=== PATIENT | female | born 1985 | race Caucasian/White ===

== ENCOUNTER 2023-11-28 18:05 | Emergency (ER) | payer OTHER, SELFPAY ==
[2023-11-28 18:30] VITALS: BP 138/75; PULSE 89; TEMP 36.7; O2SAT 98; BMI 52.1
[2023-11-28 20:23] VITALS: BP 140/67; PULSE 83; O2SAT 99
--- NOTE | 2023-11-28 20:33 | ED_ITS ---
HPI HPI - Back Pain/Injury General Chief Complaint: Back Pain/Injury Stated Complaint: BACK PAIN Time Seen by Provider: 11/28/23 20:25 Source: patient Mode of arrival: walk-in Limitations: no limitations History of Present Illness HPI Narrative: Related Data Previous Rx's ?Medication ?Instructions ?Recorded prednisone 10 mg tablet See Rx Instructions .Route 11/28/23 .COMPLEX #30 tabs tizanidine 4 mg capsule (Zanaflex) 4 mg PO Q8H PRN muscle spasticity 11/28/23 #12 caps Allergies Allergy/AdvReac Type Severity Reaction Status Date / Time amoxicillin Allergy Severe Rash Verified 11/28/23 18:30 Opioid HPI Opioid Management Most Recent Opioid Data: Last Pain Scale 6 11/28/23 20:31 11/28/23 Last ED Pain Assessment 11/28/23 20:31 PFSH PFSH Social History Little interest or pleasure in doing things: not at all Feeling down, depressed, or hopeless: not at all Exam Constitutional Vital Signs, click to edit/add: Last Vital Signs Temp 98.1 F 11/28/23 18:30 Pulse 83 11/28/23 20:23 Resp 18 11/28/23 20:23 BP 140/67 11/28/23 20:23 Pulse Ox 99 11/28/23 20:23 O2 Del Method Room Air 11/28/23 20:23 Course Vital Signs Vital signs: Vital Signs Temperature 98.1 F 11/28/23 18:30 Pulse Rate 89 11/28/23 18:30 Blood Pressure 138/75 11/28/23 18:30 Pulse Oximetry 98 11/28/23 18:30 Oxygen Delivery Method Room Air 11/28/23 18:30 Temperature 98.1 F 11/28/23 18:30 Pulse Rate 83 11/28/23 20:23 Respiratory Rate 18 11/28/23 20:23 Blood Pressure 140/67 11/28/23 20:23 Pulse Oximetry 99 11/28/23 20:23 Oxygen Delivery Method Room Air 11/28/23 20:23 Discharge Plan Discharge Chief Complaint: Back Pain/Injury Clinical Impression: Acute exacerbation of chronic low back pain Patient Disposition: Home, Self-Care Time of Disposition Decision: 20:34 Condition: Good Mode of Transportation: Private Vehicle Prescriptions / Home Meds: New tizanidine [Zanaflex] 4 mg capsule 4 mg PO Q8H PRN (Reason: muscle spasticity) Qty: 12 0RF prednisone 10 mg tablet See Rx Instructions .ROUTE .COMPLEX Qty: 30 0RF Rx Instructions: Take 5 tablets on days 1-2, 4 tabs on days 3-4, 3 tabs on days 5-6, 2 tabs on days 7-8, 1 tab on days 9-10. Print Language: Icelandic Instructions: Back Pain (ED) Additional Instructions: Return to the ER if your condition worsens. Referrals: LATONIA GRIFFIN [Primary Care Provider] - 1 week
--- NOTE | 2023-11-28 20:36 | ED_ITS ---
HPI HPI - Back Pain/Injury General Chief Complaint: Back Pain/Injury Stated Complaint: BACK PAIN Time Seen by Provider: 11/28/23 20:25 Source: patient Mode of arrival: walk-in Limitations: no limitations History of Present Illness HPI Narrative: 38 year old female presents to the ED for low back pain. States the pain is a chronic, ongoing issue. Reports hx DDD. Denies fever, chills, recent injury, urinary sx. Denies N/T to her extremities. Denies saddle anesthesia. Denies chance of . She has tried Lidocaine patches, Robaxin, Motrin, and Tylenol. Related Data Previous Rx's ?Medication ?Instructions ?Recorded prednisone 10 mg tablet See Rx Instructions .Route 11/28/23 .COMPLEX #30 tabs tizanidine 4 mg capsule (Zanaflex) 4 mg PO Q8H PRN muscle spasticity 11/28/23 #12 caps Allergies Allergy/AdvReac Type Severity Reaction Status Date / Time amoxicillin Allergy Severe Rash Verified 11/28/23 18:30 Opioid HPI Opioid Management Most Recent Opioid Data: Last Pain Scale 6 11/28/23 20:31 11/28/23 Last ED Pain Assessment 11/28/23 20:31 Review of Systems ROS Constitutional Denies: fever or chills Cardiovascular Denies: chest pain Respiratory Denies: shortness of breath Gastrointestinal Denies: abdominal pain, nausea, vomiting or diarrhea Genitourinary Denies: painful urination, urinary frequency, urinary urgency or blood in urine Musculoskeletal Reports: back pain; Denies: neck pain, extremity pain or extremity swelling Integumentary/Breast Denies: rash Neurological Denies: headache, numbness in extremities, weakness in extremities or lack of coordination PFSH PFSH Social History Little interest or pleasure in doing things: not at all Feeling down, depressed, or hopeless: not at all Exam Constitutional Vital Signs, click to edit/add: Last Vital Signs Temp 98.1 F 11/28/23 18:30 Pulse 83 11/28/23 20:23 Resp 18 11/28/23 20:23 BP 140/67 11/28/23 20:23 Pulse Ox 99 11/28/23 20:23 O2 Del Method Room Air 11/28/23 20:23 Common normals: no apparent distress and oriented x3 General appearance: cooperative Eye Common normals: conjunctivae normal and no scleral icterus Neck & C-Spine Common normals: supple Chest Chest: symmetrical chest wall rise Respiratory Common normals: normal respiratory effort Effort & inspection: able to speak in complete sentences Cardio Common normals: regular rate Back & Pelvis Thoracic spine/upper back: normal to inspection; no thoracic spinal tenderness and no paraspinal muscle tenderness Lumbar spine/lower back: normal to inspection and paraspinal muscle tenderness Neuro Common normals: oriented x3 and moves all extremities Sensorium/orientation: awake and alert Speech: speech normal Gait (neuro): normal gait Course Vital Signs Vital signs: Vital Signs Temperature 98.1 F 11/28/23 18:30 Pulse Rate 89 11/28/23 18:30 Blood Pressure 138/75 11/28/23 18:30 Pulse Oximetry 98 11/28/23 18:30 Oxygen Delivery Method Room Air 11/28/23 18:30 Temperature 98.1 F 11/28/23 18:30 Pulse Rate 83 11/28/23 20:23 Respiratory Rate 18 11/28/23 20:23 Blood Pressure 140/67 11/28/23 20:23 Pulse Oximetry 99 11/28/23 20:23 Oxygen Delivery Method Room Air 11/28/23 20:23 MDM - Back Pain/Injury MDM Narrative Medical decision making narrative: The patient was medicated with Toradol and Decadron here. Prescriptions were provided for prednisone and Zanaflex. Follow up with pcp for a recheck, further evaluation and treatment. Return to the ER for new or worsening symptoms. Differential Diagnosis Differential diagnosis: Likely lumbar radiculopathy, strain of lumbar region and other (Chronic back pain exacerbation) Medical Records Attestation: I reviewed the patient's medical records. Discharge Plan Discharge Chief Complaint: Back Pain/Injury Clinical Impression: Acute exacerbation of chronic low back pain Patient Disposition: Home, Self-Care Time of Disposition Decision: 20:34 Condition: Good Mode of Transportation: Private Vehicle Prescriptions / Home Meds: New tizanidine [Zanaflex] 4 mg capsule 4 mg PO Q8H PRN (Reason: muscle spasticity) Qty: 12 0RF prednisone 10 mg tablet See Rx Instructions .ROUTE .COMPLEX Qty: 30 0RF Rx Instructions: Take 5 tablets on days 1-2, 4 tabs on days 3-4, 3 tabs on days 5-6, 2 tabs on days 7-8, 1 tab on days 9-10. Print Language: Occitan Instructions: Back Pain (ED) Additional Instructions: Return to the ER if your condition worsens. Referrals: LATONIA GRIFFIN [Primary Care Provider] - 1 week
[2023-11-28] MEDS: KETOROLAC TROMETHAMINE 60 MG/2 ML VIAL IM (20:53)
[2023-11-28] MEDS: DEXAMETHASONE SOD PHOS 10 MG/ML VIAL IM (20:54)
== END 2023-11-28 20:59 | disposition home or self-care (01) ==
PROVIDERS: Emergency Provider Emergency Medicine
DX: M54.50 Low back pain, unspecified (principal); G89.29 Other chronic pain
CPT/HCPCS: 96372; 99284; J1100; J1885

== ENCOUNTER 2024-01-02 07:41 | Outpatient (OUT) | payer SELFPAY ==
--- OUTSIDE RECORDS SUMMARY | 2024-01-02 07:45 | XMS_ITS | CCD ---
Author Organization [facility] Care Team Providers Care Map Drafter Name Role Phone Jaycee Teran Unavailable JaMariaelena Unavailable CAROLANN, DR SÁNCHEZ Admitting Unavailable VERNON HILL, DR SÁNCHEZ Attending Unavailable VERNON HILL, DR SÁNCHEZ Primary Care Unavailable MILLVILLE, DR VALENTINA Velasquez Consulting Unavailable VERNON HILL, DR SÁNCHEZ Consulting Unavailable VERNON HILL, DR SÁNCHEZ Admitting Unavailable HOUSE, DR SÁNCHEZ Attending Unavailable HOUSE, DR SÁNCHEZ Primary Care Unavailable VERNON HILL, DR SÁNCHEZ Consulting Unavailable Ronen Mendez Consulting Unavailable FAWWAD, LUCIANO H Admitting Unavailable FAWWAD, LUCIANO H Attending Unavailable FAWWAD, LUCIANO H Primary Care Unavailable FAWWAD, LUCIANO H Consulting Unavailable FAWWAD, LUCIANO H Admitting Unavailable FAWWAD, LUCIANO H Attending Unavailable FAWWAD, LUCIANO H Primary Care Unavailable FAWWAD, LUCIANO H Consulting Unavailable FAWWAD, LUCIANO Referring Unavailable FAWWAD, LUCIANO Primary Care Unavailable FAWWAD, LUCIANO Referring Unavailable FAWWAD, LUCIANO Primary Care Unavailable Alisond Shaikh DAUGHERTY Primary Care Provider [phone] Rasheeda PATHOLOGY SECRETARY/TRANSCRIPTIONIST, Charity Unavailable Brandin Vuong MD Unavailable Maite DAUGHERTY, Wallace Primary Care Provider Bhupendra DELEON, Cary Unavailable SHAIKH FARNSWORTH Attending Unavailable CARY HUIZAR Attending Unavailabl e SHAIKH FARNSWORTH Attending Unavailable CARY HUIZAR Referring Unavaila ble FAWCHELE, Primary Care Unavailable CARY HUIZAR Referring Unavaila ble SHAIKH FARNSWORTH Primary Care Unavailable HEALTH, 360 Referring Unavailable CRISTIAN FARNSWORTHIKH Primary Care Unavailable CHARITY GUSTAFSON Referring Unavailable CRISTIAN FARNSWORTHIKH Primary Care Unavailable Allergies Allergy Classification Reported Allergen(s) Allergy Type Date of Onset Reaction(s) Facility (15 sources) Amoxicillin; Translations: [Amoxicillin] Drug Allergy 05-05-2013 as a child [facility] Repository (1 source) Latex Drug allergy (disorder) 08-12-2013 [facility] Rep[facility] Medications Current Medications Medication Drug Class(es) Dates Sig (Normalized) Sig (Original) [id number] 200 actuat albuterol 0.09 mg/actuat metered dose inhaler (18 sources) beta2-Adrenergic Agonist Start: 12-17-2023 End: 12-17-2023 take 2 puff(s) by inhalation every four hours for wheezing albuterol HFA 90 mcg/act inhaler Indications: Mild intermittent asthma without complication (CMS/HCC) Inhale 2 puffs every 4 (four) hours if needed for wheezing 18 g 2 12/17/2023 Active Start: 07-27-2021 take 2 puff(s) by in halation every four hours as needed Albuterol Sulfate HFA 108 (90 Base) MCG/ACT 2 puffs as needed Inhalation every 4 hrs Jul, Active Start: 07-27-2021 take 2 puff(s) by in halation every four hours as needed Albuterol Sulfate HFA 108 (90 Base) MCG/ACT 2 puffs as needed Inhalation every 4 hrs Jul, Not-Taking/PRN Start: 06-18-2021 take 2 puff(s) by in halation every four to six hours as needed Albuterol Sulfate HFA 108 (90 Base) MCG/ACT 2 puffs as needed Inhalation every 4-6 hours for 14 days June, Active Start: 06-18-2021 take 2 puff(s) by in halation every four to six hours as needed Albuterol Sulfate HFA 108 (90 Base) MCG/ACT 2 puffs as needed Inhalation every 4-6 hours for 14 days June, Not-Taking/PRN take 2 puff(s) by in halation every six hours as needed for wheezing albuterol (PROVENTIL HFA;VENTOLIN HFA) 90 mcg/actuation inhaler Indications: acute asthma attack Inhale 2 puffs every 6 (six) hours as needed for wheezing Indications: asthma attack. Active Ventolin HFA Act anastacia 24 hr buPROPion hydrochloride 150 mg extended release oral tablet (8 sources) Aminoketone Start: 06-17-2023 take 1 tablet by mouth once daily buPROPion XL (Wellbutrin XL) 150 MG 24 hr tablet Indications: Severe episode of recurrent major depressive disorder, without psychotic features (HCC) (CMS/HCC) Take 1 tablet (150 mg) by mouth Daily Do not crush, chew, or split. 90 tablet 1 06/17/2023 Active cephalexin 500 mg oral capsule (1 source) Cephalosporin Antibacterial Start: 02-21-2023 take 1 capsule by mouth every twelve hours Cephalexin 500 MG 1 capsule Orally twice a day for Feb, Active Estradiol (4 sources) Estrogen Start: 11-25-2023 Estradiol Cypionate (DEPO-ESTRADIOL IM) 11/25/2023 Active ferrous sulfate 325 mg oral tablet (6 sources) take 1 tablet by mouth once daily at breakfast ferrous sulfate 325 (65 FE) mg tablet Take 1 tablet (325 mg total) by mouth daily with breakfast. Active Lidocaine (1 source) Antiarrhythmic, Amide Local Anesthetic Start: 04-20-2021 Lidocaine 5 % 1 patch remove after 12 hours Externally Once a day for 7 days Apr, Active 24 hr metFORMIN hydrochloride 500 mg extended release oral tablet (1 source) Biguanide Start: 12-25-2023 End: 12-24-2024 take 1 tablet by mouth every twenty-four hours at mealtime metFORMIN XR (Glucophage-XR) 500 MG 24 hr tablet Indications: Prediabetes Take 1 tablet (500 mg) by mouth in the evening. Take with meals Do not crush, chew, or split. 30 tablet 12/25/2023 12/24/2024 Active montelukast 10 mg oral tablet (11 sources) Leukotriene Receptor Antagonist Start: 06-17-2023 take 1 tablet by mouth once daily montelukast (Singulair) 10 MG tablet Indications: Chronic allergic rhinitis Take 1 tablet (10 mg) by mouth Daily 90 tablet 1 06/17/2023 Active Singulair Active omeprazole 20 mg delayed release oral capsule (13 sources) Proton Pump Inhibitor Start: 06-17-2023 End: 12-24-2023 take 1 capsule by mouth once daily before mealtime omeprazole (PriLOSEC) [address] capsule Indications: Gastroesophageal reflux disease without esophagitis TAKE 1 CAPSULE BY MOUTH ONCE EVERY MORNING BEFORE MEALS *DO NOT CRUSH OR CHEW* 90 capsule 1 12/24/2023 Active PriLOSEC OTC Not -Taking/PRN PriLOSEC OTC Act anastacia predniSONE 20 mg oral tablet (1 source) Start: 02-21-2023 take 1 tablet by mouth every twelve hours prednisone 20 MG 1 tablet Orally BID for 5 Feb, Active Semaglutide-Weight Management (Wegovy) 0.25 MG/0.5ML solution auto-injector (4 sources) Start: 12-17-2023 Semaglutide-We ight Management (Wegovy) 0.25 MG/0.5ML solution auto-injector Indications: Severe episode of recurrent major depressive disorder, without psychotic features (HCC) (CMS/HCC) , Metabolic syndrome , Class 3 severe obesity due to excess calories without serious comorbidity with body mass index (BMI) of 50.0 to 59.9 in adult (CMS/HCC) Inject 0.25 mg under the skin 1 (one) time per week 0.5 mL 3 12/17/2023 Active tiZANidine 4 mg oral tablet (4 sources) Central alpha-2 Adrenergic Agonist Start: 11-28-2023 take 1 tablet by mouth every eight hours as needed tiZANidine (Zanaflex) 4 MG tablet TAKE 1 TABLET ORALLY EVERY 8 HOURS NEEDED FOR MUSCLE SPASTICITY 11/28/2023 Active Completed/Discontinued Medications Medication Drug Class(es) Dates Sig (Normalized) Sig (Original) dexamethasone 1 mg/ml / neomycin 3.5 mg/ml / polymyxin b [id number] unt/ml ophthalmic suspension (2 sources) Aminoglycoside Antibacterial, Polymyxin-class Antibacterial, Corticosteroid Neomycin-Polymyxi n-Dexameth [id number] Ophthalmic for 5 Days Not-Taking/PRN dextromethorphan hydrobromide 1.5 mg/ml / pyrilamine maleate 1.5 mg/ml oral solution (3 sources) Uncompetitive Y-hryvbv-B-aspartat e Receptor Antagonist, Sigma-1 Agonist Start: 06-18-2021 take 10 mL by mouth every eight hours as needed [place] DM 7.5-7.5 MG/5ML 10 mL Orally every 8 hours for 5 days June, Not-Taking/PRN fluticasone / salmeterol (5 sources) Corticosteroid, beta2-Adrenergic Agonist End: 11-26-2023 take 1 puff(s) by inhalation in the morning fluticasone propion-salmetero L (ADVAIR) 250-50 mcg/dose DISKUS Indications: maintenance therapy for asthma Inhale 1 puff in the morning and 1 puff before bedtime. Indications: controller medication for asthma. 11/26/2023 Discontinued (Therapy completed) Advair Diskus Ac tive Ketorolac (4 sources) Nonsteroidal Anti-inflammatory Drug, Cyclooxygenase Inhibitor Start: 04-20-2021 Toradol per 15 mg Apr, 30 mg 1 ml medroxyPROGESTERone acetate 150 mg/ml injection (2 sources) Progestin Start: 11-26-2023 End: 11-26-2023 medroxyPROGESTERone (DEPO-PROVERA) injection 150 mg Start: 11-26-2023 End: 11-26-2023 inject 150 mg by intramuscular injection once 150 mg, intramuscular, Once, On Sat11/26/23 at 1015, For 1 dose, Look-alike/sound-alike medication - verify indication for use. methylPREDNISolone 4 mg oral tablet (6 sources) Corticosteroid Start: 06-18-2021 methylPREDNISo lone 4 MG as directed Orally Once a day for 6 days Jul, Not-Taking/PRN Start: 04-20-2021 Medrol (Arnol) 4 MG as directed Orally for daily dose take half with breakfast half with dinner for 6 days Apr, Active Triamcinolone (4 sources) Corticosteroid Start: 04-20-2021 Kenalog -40 mg Apr, 40 mg Problems Active Problems Problem Classification Problem Date Documented Date Episodic/Chronic Asthma (19 sources) Severe persistent asthma, uncomplicated; Translations: [Mild intermittent asthma] Onset: 11-07-2021 Chronic Contraceptive and procreative management (2 sources) Encounter for initial prescription of injectable contraceptive; Translations: [Contraception status] Onset: 11-26-2023 11-26-2023 Episodic Diabetes mellitus with complications (1 source) 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; Translations: [TYPE 2 DM W/HYPEROSMOLARITY W/COMA] Onset: 11-08-2021 Chronic Diabetes mellitus without complication (1 source) Prediabetes; Translations: [Prediabetes] 12-25-2023 Episodic Esophageal disorders (8 sources) Gastroesophageal reflux disease; Translations: [Gastro-esophageal reflux disease without esophagitis] Onset: 01-21-2023 11-26-2023 Chronic Genitourinary symptoms and ill-defined conditions (7 sources) Female stress incontinence; Translations: [Stress incontinence (female) (male)] Onset: 01-21-2023 11-26-2023 Chronic Joint disorders and dislocations; trauma-related (4 sources) Unspecified internal derangement of left knee; Translations: [UNS INTERNAL DERANGEMENT LEFT KNEE] Onset: 04-28-2021 Chronic Menstrual disorders (2 sources) Excessive and frequent menstruation with regular cycle; Translations: [Menorrhagia] Onset: 11-26-2023 11-26-2023 Chronic Mood disorders (9 sources) Major depressive disorder; Translations: [Major depressive disorder, single episode, unspecified] Onset: 01-21-2023 11-26-2023 Chronic Other nutritional; endocrine; and metabolic disorders (3 sources) Metabolic syndrome; Translations: [METABOLIC SYNDROME] Onset: 11-08-2021 Chronic Other nutritional; endocrine; and metabolic disorders (9 sources) Metabolic syndrome X; Translations: [Metabolic syndrome] Onset: 01-21-2023 11-26-2023 Chronic Other nutritional; endocrine; and metabolic disorders (2 sources) Morbid obesity; Translations: [Morbid (severe) obesity due to excess calories] Onset: 11-26-2023 11-26-2023 Chronic Other nutritional; endocrine; and metabolic disorders (5 sources) Obesity; Translations: [Obesity, unspecified] Onset: 01-21-2023 01-21-2023 Chronic Other nutritional; endocrine; and metabolic disorders (2 sources) Severe obesity; Translations: [Class 3 severe obesity due to excess calories without serious comorbidity with body mass index (BMI) of 50.0 to 59.9 in adult ([facility])] 12-17-2023 Chronic Other screening for suspected conditions (not mental disorders or infectious disease) (5 sources) Encounter for screening for lipoid disorders; Translations: [Encounter for screening for diabetes mellitus] Onset: 11-08-2021 11-26-2023 Episodic Other upper respiratory infections (5 sources) Sore throat symptom; Translations: [Acute pharyngitis, unspecified] Onset: 07-27-2021 Resolved: 07-27-2021 Episodic Residual codes; unclassified (1 source) Other specified personal risk factors, not elsewhere classified; Translations: [Other specified personal history presenting hazards to health] 12-26-2023 Episodic Screening and history of mental health and substance abuse codes (2 sources) Encounter for screening for depression; Translations: [Standardized adult depression screening tool completed ] Onset: 11-26-2023 11-26-2023 Episodic Spondylosis; intervertebral disc disorders; other back problems (8 sources) Degeneration of lumbosacral intervertebral disc; Translations: [Degenerative disc disease at L5-S1 level] Onset: 12-17-2023 12-17-2023 Chronic Unclassified (1 source) Gynecologic Exam Onset: 11-26-2023 Unclassified (1 source) Other intervertebral disc degeneration, lumbosacral region without mention of lumbar back pain or lower extremity pain; Translations: [Other intervertebral disc degeneration, lumbosacral region without mention of lumbar back pain or lower extremity pain] Onset: 12-21-2023 Past or Other Problems Problem Classification Problem Date Documented Da te Episodic/Chronic Administrative/social admission (1 source) Encounter for pre-employment examination; Translations: [Encounter for pre-employment examination] Onset: 04-08-2023 Episodic Chronic obstructive pulmonary disease and bronchiectasis (2 sources) Bronchitis, not specified as acute or chronic Onset: 06-18-2021 Resolved: 07-27-2021 Episodic Deficiency and other anemia (4 sources) Anemia, unspecified; Translations: [ANEMIA UNSPECIFIED] Onset: 11-07-2021 Episodic Deficiency and other anemia (7 sources) Iron deficiency anemia; Translations: [Iron deficiency anemia, unspecified] Onset: 01-21-2023 11-26-2023 Episodic Deficiency and other anemia (5 sources) Anemia; Translations: [Anemia, unspecified] Onset: 01-21-2023 01-21-2023 Episodic E Codes: Fall (1 source) Unspecified fall, initial encounter Onset: 04-20-2021 Resolved: 04-20-2021 Episodic Immunizations and screening for infectious disease (1 source) Contact with and (suspected) exposure to other viral communicable diseases Onset: 06-18-2021 Resolved: 06-18-2021 Episodic Mood disorders (2 sources) Mood disorders Onset: 11-26-2023 11-26-2023 Mycoses (5 sources) Tinea corporis; Translations: [Tinea corporis] Onset: 02-04-2023 02-04-2023 Episodic Nutritional deficiencies (7 sources) Folic acid deficiency (non anemic); Translations: [Deficiency of other specified B group vitamins] Onset: 01-21-2023 11-26-2023 Episodic Other non-traumatic joint disorders (4 sources) Pain in right ankle and joints of right foot; Translations: [PAIN IN RIGHT ANKLE] Onset: 04-14-2021 Episodic Other nutritional; endocrine; and metabolic disorders (1 source) Abnormal weight gain; Translations: [ABNORMAL WEIGHT GAIN] Onset: 11-08-2021 Episodic Other nutritional; endocrine; and metabolic disorders (5 sources) Abnormal weight gain; Translations: [Abnormal weight gain] Onset: 01-21-2023 01-21-2023 Episodic Other skin disorders (5 sources) Eruption; Translations: [Rash and other nonspecific skin eruption] Onset: 02-04-2023 02-04-2023 Episodic Residual codes; unclassified (7 sources) Family history of malignant neoplasm of uterus; Translations: [Family history of malignant neoplasm of other genital organs] Onset: 08-27-2022 08-27-2022 Episodic Residual codes; unclassified (7 sources) Family history of cancer of colon; Translations: [Family history of malignant neoplasm of digestive organs] Onset: 08-27-2022 08-27-2022 Episodic Residual codes; unclassified (7 sources) Family history of breast cancer; Translations: [Family history of malignant neoplasm of breast] Onset: 08-27-2022 08-27-2022 Episodic Spondylosis; intervertebral disc disorders; other back problems (10 sources) Pain in thoracic spine; Translations: [Chronic low back pain] Onset: 04-20-2021 Resolved: 04-20-2021 Episodic Sprains and strains (1 source) Strain of unspecified muscle(s) and tendon(s) at lower leg level, left leg, initial encounter Onset: 04-20-2021 Resolved: 04-20-2021 Episodic Unclassified (1 source) Contact with and (suspected) exposure to covid-19 Z20.822 Unclassified (2 sources) Onset: 11-26-2023 11-26-2023 Unclassified (1 source) At increased risk for malignant neoplasm of breast 12-26-2023 Results Test Name Value Interpretation Reference Range Facility MAMM SCREENING BILATERAL W C office services coordinator 12-23-2023 MAMM SCREENING BILATERAL W CAD MAMM SCREENING BILATERAL W CAD JUAN RAMON MONK 1985 [id number] EXAM: MAMM SCREENING BILATERAL W CAD, 12/21/2023 9:15 AM CLINICAL INDICATIONS: Screening, Encounter for screening mammogram for breast cancer COMPARISON: No prior studies currently available for comparison. TECHNIQUE: Bilateral digital tomosynthesis MLO and CC views of the breasts were obtained, with creation of synthetic 2D views. Computer aided detection was utilized. FINDINGS: There are scattered areas of fibroglandular density. There are no suspicious masses, calcifications, or areas of architectural distortion. IMPRESSION: No mammographic evidence of malignancy. BI-RADS: BI-RADS 1 - Negative RECOMMENDATION: Recommend supplemental MRI evaluation in addition to annual mammography.. Given personal elevated risk of malignancy (see below), MRI may be considered for supplemental screening. This is recommended to be performed at alternating 6 month intervals with screening mammography. RISK ASSESSMENT: TC Lifetime risk: 20%. The patient's reported personal and family medical history was used calculate their Tyrer-Cuzick lifetime risk of malignancy. Scores less than 20% are not considered high risk per ACR guidelines and patient should continue with the above recommendation. 9 Finalized by Giovana Benavidez MD on 12/23/2023 2:46 PM 1 b BREAST MRI Normal [facility] XR SPINE LUMB COMP INCL BEND 6+ VWSon 12-21-2023 XR SPINE LUMB COMP INCL BEND 6+ VWS XR SPINE LUMB COMP INCL BEND 6+ VWS CLINICAL HISTORY: Degenerative disc disease at L5-S1 level COMPARISON: None. 7 views of the lumbar spine were obtained. There are 5 lumbar vertebral bodies identified. The vertebral body height and alignment, as well as the intervertebral disc spaces are well maintained with straightening and loss of the normal lordosis possibly from muscle spasm. There is mild disc space narrowing at L4-5 and L5-S1 level.. There is no evidence of spondylolysis or spondylolisthesis. No pars defects are seen in the oblique views. Flexion and extension views revealed adequate range of motion and no pathologic motion. There is no evidence of compression deformity or paraspinal opacity. IMPRESSION: Mild lower lumbar spondylosis. No spondylolysis or spondylolisthesis. Adequate range of motion in flexion and extension. 1 Finalized by Valeri Alexandre MD on 12/21/2023 2:51 PM Normal [facility] HGB A1C (GLYCO-HGB)on 2023 Glucose [Mass/Vol] 117 mg/dL Normal [facility] Comment on above: Performed By: #### H A1C #### [facility] ([id number]) [facility], [address] [place] [address] HbA1c (Bld) [Mass fraction] 5.7 % High 4.4-5.6 [facility] Comment on above: Result Comment: NOTE ADA Guidelines Result HgbA1c Normal : less than 5.7 % Prediabetes : 5.7 % to 6.4 % Diabetes : > 6.4 % Use with caution in patients with abnormal hemoglobin variants as the half-life of red blood cells and in vivo glycation rates are affected. Performed By: #### H A1C #### [facility] ([id number]) [address] [place] [address], [address] [place] [address] POCT , urineon 10-0 Beta HCG ( test) Ql (U) Negative [facility] Internal Case Investigator Check Completed and Passed Yes [facility] Interpretation and review of laboratory results Normal [facility] CBC AND AUTO DIFFon 06-14-19 24 ABSOLUTE BASOPHIL 0.1 X10E9/L Normal 0.0-0.2 [facility] Comment on above: Performed By: #### C BCA, CMP #### [facility] ([id number]) [address] [place] [address] #### 12742-9, HA1C #### [facility] ([id number]) [address] [facility], [address] [place] [address] ABSOLUTE NEUTROPHIL 5.6 X10E9/L Normal 1.5-6.6 [facility] Comment on above: Performed By: #### C BCA, CMP #### [facility] ([id number]) [address] [place], [place] [address] #### 85786-9, HA1C #### [facility] ([id number]) [address] [facility], [address] [place] [address] Basophils/100 WBC (Bld) 1.4 % Normal [facility] Comment on above: Performed By: #### C BCA, CMP #### [facility] ([id number]) [address] [place], [place] [address] #### 95647-5, HA1C #### [facility] ([id number]) [address] [facility], [address] [place] [address] Eosinophils (Bld) [#/Vol] 0.2 10*3/uL Normal 0.0-0.4 [facility] Comment on above: Performed By: #### C BCA, CMP #### [facility] ([id number]) [address] [place], [place] [address] #### 59678-6, HA1C #### [facility] ([id number]) [address] [facility], [address] [place] [address] Eosinophils/100 WBC (Bld) 2.0 % Normal [facility] Comment on above: Performed By: #### C BCA, CMP #### [facility] ([id number]) [address] [place], [place] [address] #### 05903-5, HA1C #### [facility] ([id number]) [address], [address] [place] [address] Erythrocyte distribution width (RBC) [Ratio] 15.5 % High 11.5-15.0 [facility] Comment on above: Performed By: #### C BCA, CMP #### [facility] ([id number]) [address] [place] [address] #### 42684-2, HA1C #### [facility] ([id number]) [address] [facility], [address] [place] [address] Hematocrit (Bld) [Volume fraction] 38.8 % Normal 35-47 [facility] Comment on above: Performed By: #### C BCA, CMP #### [facility] ([id number]) [address] [place], [place] [address] #### 59851-1, HA1C #### [facility] ([id number]) [address] [facility], [address] [place] [address] Hemoglobin (Bld) [Mass/Vol] 12.6 g/dL Normal 11.7-15.5 [facility] Comment on above: Performed By: #### C BCA, CMP #### [facility] ([id number]) [address] [place] [address] #### 80628-2, HA1C #### [facility] ([id number]) [address], [address] [place] [address] Lymphocytes (Bld) [#/Vol] 2.0 10*3/uL Normal 1.0-3.5 [facility] Comment on above: Performed By: #### C BCA, CMP #### [facility] ([id number]) [address] [place] [address] #### 52795-3, HA1C #### [facility] ([id number]) [address], [address] [place] [address] Lymphocytes/100 WBC (Bld) 24.0 % Normal [facility] Comment on above: Performed By: #### C BCA, CMP #### [facility] ([id number]) [address] [place] [address] #### 80649-0, HA1C #### [facility] ([id number]) [address], [address] [place] [address] MCH (RBC) [Entitic mass] 25.0 pg Low 27-34 [facility] Comment on above: Performed By: #### C BCA, CMP #### [facility] ([id number]) [address] [place] [address] #### 46858-8, HA1C #### [facility] ([id number]) [address], [address] [place] [address] MCHC (RBC) [Mass/Vol] 32.6 g/dL Normal 32-36 [facility] Comment on above: Performed By: #### C BCA, CMP #### [facility] ([id number]) [address] [place] [address] #### 89608-1, HA1C #### [facility] ([id number]) [address], [address] [place] [address] MCV (RBC) [Entitic vol] 77 fL Low 80-100 [facility] Comment on above: Performed By: #### C BCA, CMP #### [facility] ([id number]) [address] [place] [address] #### 50580-7, HA1C #### [facility] ([id number]) [address], [address] [place] [address] Monocytes (Bld) [#/Vol] 0.5 10*3/uL Normal 0-0.9 [facility] Comment on above: Performed By: #### C BCA, CMP #### [facility] ([id number]) [address] [place] [address] #### 68266-5, HA1C #### [facility] ([id number]) [address] [place] [address] Monocytes/100 WBC (Bld) 5.5 % Normal [facility] Comment on above: Performed By: #### C BCA, CMP #### [facility] ([id number]) [address] [place], [place] [address] #### 89480-9, HA1C #### [facility] ([id number]) [address], [address] [place] [address] Neutrophils/100 WBC (Bld) 67.1 % Normal [facility] Comment on above: Performed By: #### C BCA, CMP #### [facility] ([id number]) [address] [place], [place] [address] #### 02530-4, HA1C #### [facility] ([id number]) [address], [address] [place] [address] Platelet mean volume (Bld) [Entitic vol] 8.7 fL Normal 7-12 [facility] Comment on above: Performed By: #### C BCA, CMP #### [facility] ([id number]) [address] [place] [address] #### 81452-1, HA1C #### [facility] ([id number]) [address] [place] [address] Platelets (Bld) [#/Vol] 311 10*3/uL Normal 150-450 [facility] Comment on above: Performed By: #### C BCA, CMP #### [facility] ([id number]) [address] [place] [address] #### 38814-1, HA1C #### [facility] ([id number]) [address] [facility], [address] [place] [address] RBC COUNT 5.06 X10E12/L Normal 3.80-5.20 [facility] Comment on above: Performed By: #### C BCA, CMP #### [facility] ([id number]) [address] [place] [address] #### 91501-7, HA1C #### [facility] ([id number]) [address] [facility], [address] [place] [address] WBC (Bld) [#/Vol] 8.4 10*3/uL Normal 4.0-11.0 [facility] Comment on above: Performed By: #### C BCA, CMP #### [facility] ([id number]) [address] [place], [place] [address] #### 06598-4, HA1C #### [facility] ([id number]) [address] [facility], [address] [place] [address] COMPREHENSIVE METABOLIC PANE Viktor 06-14-2023 Albumin [Mass/Vol] 3.7 g/dL Normal 3.2-5.3 [facility] Comment on above: Performed By: #### C BCA, CMP #### [facility] ([id number]) [address] [place], [place] [address] #### 07657-1, HA1C #### [facility] ([id number]) [address] [facility], [address] [place] [address] ALP [Catalytic activity/Vol] 66 U/L Normal 39-130 [facility] Comment on above: Performed By: #### C BCA, CMP #### [facility] ([id number]) [address] [place] [address] #### 59629-1, HA1C #### [facility] ([id number]) [address], [address] [place] [address] ALT [Catalytic activity/Vol] 15 U/L Normal 0-31 [facility] Comment on above: Performed By: #### C BCA, CMP #### [facility] ([id number]) [address] [place] [address] #### 24450-7, HA1C #### [facility] ([id number]) [address], [address] [place] [address] Anion gap [Moles/Vol] 8 mmol/L Normal 5-15 [facility] Comment on above: Performed By: #### C BCA, CMP #### [facility] ([id number]) [address] [place], [place] [address] #### 20138-6, HA1C #### [facility] ([id number]) [address] [place] [address] AST [Catalytic activity/Vol] 15 U/L Normal 0-41 [facility] Comment on above: Performed By: #### C BCA, CMP #### [facility] ([id number]) [address] [place], [place] [address] #### 65155-4, HA1C #### [facility] ([id number]) [address], [address] [place] [address] Bilirubin [Mass/Vol] 0.6 mg/dL Normal 0.3-1.2 [facility] Comment on above: Performed By: #### C BCA, CMP #### [facility] ([id number]) [address] [place] [address] #### 62594-8, HA1C #### [facility] ([id number]) [address], [address] [place] [address] Calcium [Mass/Vol] 9.0 mg/dL Normal 8.5-10.5 [facility] Comment on above: Performed By: #### C BCA, CMP #### [facility] ([id number]) [address] [place] [address] #### 99115-3, HA1C #### [facility] ([id number]) [address] [facility], [address] [place] [address] Chloride [Moles/Vol] 103 mmol/L Normal 98-109 [facility] Comment on above: Performed By: #### C BCA, CMP #### [facility] ([id number]) [address] [place] [address] #### 01475-9, HA1C #### [facility] ([id number]) [address] [facility], [address] [place] [address] CO2 [Moles/Vol] 25 mmol/L Normal 22-32 [facility] Comment on above: Performed By: #### C BCA, CMP #### [facility] ([id number]) [address] [place] [address] #### 16299-1, HA1C #### [facility] ([id number]) [address] [place] [address], [address] [place] [address] Creatinine [Mass/Vol] 0.79 mg/dL Normal 0.40-1.00 [facility] Comment on above: Result Comment: METH OD TRACEABLE TO IDMS STANDARD Performed By: #### C BCA, CMP #### [facility] ([id number]) [address] [place] [address] #### 85163-3, HA1C #### [facility] ([id number]) [address] [facility], [address] [place] [address] eGFR (CKD-EPI) NON-RACE DEPENDENT >90 Normal >59 [facility] Comment on above: Result Comment: Reported eGFR is based on the CKD-EPI 2020 equation that does not use a race coefficient. Performed By: #### C BCA, CMP #### [facility] ([id number]) [address] [place] [address] #### 45525-7, HA1C #### [facility] ([id number]) [address], [address] [place] [address] Glucose [Mass/Vol] 99 mg/dL Normal 65-99 [facility] Comment on above: Performed By: #### C BCA, CMP #### [facility] ([id number]) [address] [place] [address] #### 04477-8, HA1C #### [facility] ([id number]) [address] [facility], [address] [place] [address] Potassium [Moles/Vol] 3.8 mmol/L Normal 3.5-5.0 [facility] Comment on above: Performed By: #### C BCA, CMP #### [facility] ([id number]) [address] [place], [place] [address] #### 16936-6, HA1C #### [facility] ([id number]) [address] [facility], [address] [place] [address] Protein [Mass/Vol] 7.8 g/dL Normal 6.0-8.0 [facility] Comment on above: Performed By: #### C BCA, CMP #### [facility] ([id number]) [address] [place] [address] #### 07033-7, HA1C #### [facility] ([id number]) [address] [place] [address] Sodium [Moles/Vol] 136 mmol/L Normal 134-146 [facility] Comment on above: Performed By: #### C BCA, CMP #### [facility] ([id number]) [address] [place] [address] #### 80805-4, HA1C #### [facility] ([id number]) [address] [facility], [address] [place] [address] Urea nitrogen [Mass/Vol] 14 mg/dL Normal 5-23 [facility] Comment on above: Performed By: #### C BCA, CMP #### [facility] ([id number]) [address] [place] [address] #### 97569-3, HA1C #### [facility] ([id number]) [address] [facility], [address] [place] [address] HGB A1C (GLYCO-HGB)on 2023 Glucose [Mass/Vol] 114 mg/dL Normal [facility] Comment on above: Performed By: #### C BCA, CMP #### [facility] ([id number]) [address] [place] [address] #### 40117-7, HA1C #### [facility] ([id number]) [address] [place] [address], [address] [place] [address] HbA1c (Bld) [Mass fraction] 5.6 % Normal 4.4-5.6 [facility] Comment on above: Result Comment: NOTE ADA Guidelines Result HgbA1c Normal : less than 5.7 % Prediabetes : 5.7 % to 6.4 % Diabetes : > 6.4 % Use with caution in patients with abnormal hemoglobin variants as the half-life of red blood cells and in vivo glycation rates are affected. Performed By: #### C BCA, CMP #### [facility] ([id number]) [address] [place] [address] #### 67122-7, HA1C #### [facility] ([id number]) [address] [facility], [address] [place] [address] Lipid 1996 panelon Cholesterol [Mass/Vol] 165 mg/dL Normal 150-200 [facility] Comment on above: Performed By: #### C BCA, CMP #### [facility] ([id number]) [address] [place] [address] #### 63371-3, HA1C #### [facility] ([id number]) [address] [facility] [place] [address] Cholesterol in HDL [Mass/Vol] 54 mg/dL Normal >39 [facility] Comment on above: Result Comment: HDL <40 mg/dL - High Risk HDL > or = 40mg/dL- Desirable HDL >60 mg/dL - Negative Risk Performed By: #### C BCA, CMP #### [facility] ([id number]) [address] [place] [address] #### 79529-3, HA1C #### [facility] ([id number]) [address] [facility], [address] [place] [address] Cholesterol in LDL [Mass/Vol] 103 mg/dL Normal <130 [facility] Comment on above: Result Comment: LDL <100 mg/dL - Desirable LDL >160 mg/dL - High Risk Performed By: #### C BCA, CMP #### [facility] ([id number]) [address] [place] [address] #### 99024-1, HA1C #### [facility] ([id number]) [address] [facility], [address] [place] [address] Cholesterol in VLDL [Mass/Vol] 8 mg/dL Normal 0-30 [facility] Comment on above: Performed By: #### C BCA, CMP #### [facility] ([id number]) [address] [place] [address] #### 16403-4, HA1C #### [facility] ([id number]) [address] [place] [address], [address] [place] [address] CHOLESTEROL:HDL 3.1 Normal 1.0-5.0 [facility] Comment on above: Performed By: #### C BCA, CMP #### [facility] ([id number]) [address] [place] [address] #### 86534-5, HA1C #### [facility] ([id number]) [address] [place] [address], [address] [address] Triglyceride [Mass/Vol] 42 mg/dL Normal 27-150 [facility] Comment on above: Performed By: #### C BCA, CMP #### [facility] ([id number]) [address] [place], [place] [address] #### 50254-3, HA1C #### [facility] ([id number]) [address] [place] [address], [address] [place] [address] HBV surface Ab IA Qnon 04-08 Anti HBs quant. 908.09 mIU/mL Normal [facility] Comment on above: Result Comment: Vacc inated: >=12mIU/mL, Positive (Immune) Unvaccinated: <8mIU/mL, Negative (Not Immune) 8-11.99 mIU/mL: Indeterminate, (Considered Not Immune) Performed By: #### 5 193-8 #### [facility] ([id number]) [address] [place] [address], [address] [place] [address] COVID/FLU/RSV RT-PCRon 02-21 SARS-CoV-2 (COVID-19) RNA KING+probe Ql (Unsp spec) Negative [employer] Other COVID/FLU/RSV RT-PCR Negative [employer] Other Quick Strepon 02-21-2023 S. pyogenes Org specific cx Ql (Throat) Negative [employer] [facility] [employer] Other Quick Strep [employer] Other TRANSFERRINon 11-08-2021 Transferrin [Mass/Vol] 234 mg/dL Normal 192-364 [facility] Comment on above: Performed By: #### T RANSFR #### [facility] [address] [place] [address] Dr. Harshad Almanzar CBC AUTO DIFFon 11-07-2021 BASO # 0.1 103/ul Normal 0.0-0.1 [facility] Comment on above: Performed By: #### F ETIBC, B12FOL, FERR #### [facility] [address] [place] [address] Dr. Harshad Almanzar Basophils/100 WBC (Bld) 0.7 % Normal 0.2-2.0 [facility] Comment on above: Performed By: #### F ETIBC, B12FOL, FERR #### [facility] [address] [place] [address] Dr. Harshad Almanzar EO # 0.3 103/ul Normal 0.0-0.7 [facility] Comment on above: Performed By: #### F ETIBC, B12FOL, FERR #### [facility] [address] [place] [address] Dr. Harshad Almanzar Eosinophils/100 WBC (Bld) 3.1 % Normal 0.9-7.0 [facility] Comment on above: Performed By: #### F ETIBC, B12FOL, FERR #### [facility] [address] [place] [address] Dr. Harshad Almanzar Erythrocyte distribution width (RBC) [Ratio] 14.2 % Normal 11.0-15.0 [facility] Comment on above: Performed By: #### F ETIBC, B12FOL, FERR #### [facility] [address] [place] [address] Dr. Harshad Almanzar Hematocrit (Bld) [Volume fraction] 41.1 % Normal 36.0-48.0 [facility] Comment on above: Performed By: #### F ETIBC, B12FOL, FERR #### [facility] [address] [place] [address] Dr. Harshad Almanzar Hemoglobin (Bld) [Mass/Vol] 13.2 g/dL Normal 12.0-16.0 [facility] Comment on above: Performed By: #### F ETIBC, B12FOL, FERR #### [facility] [address] [place] [address] Dr. Harshad Almanzar IG # 0.02 10e3/ul Normal 0.00-0.03 [facility] Comment on above: Performed By: #### F ETIBC, B12FOL, FERR #### [facility] [address] [place] [address] Dr. Harshad Almanzar IG % 0.2 % Normal 0.0-0.5 [facility] Comment on above: Performed By: #### F ETIBC, B12FOL, FERR #### [facility] [address] [place] [address] Dr. Harshad Almanzar LYMPH # 2.4 103/ul Normal 1.2-3.8 [facility] Comment on above: Performed By: #### F ETIBC, B12FOL, FERR #### [facility] [address] [place] [address] Dr. Harshad Almanzar Lymphocytes/100 WBC (Bld) 26.7 % Normal 20.5-60.0 [facility] Comment on above: Performed By: #### F ETIBC, B12FOL, FERR #### [facility] [address] [place] [address] Dr. Harshad Almanzar MANUAL DIFF REQ NO Normal [facility] Comment on above: Performed By: #### F ETIBC, B12FOL, FERR #### [facility] [address] [place] [address] Dr. Harshad Almanzar MCH (RBC) [Entitic mass] 26.3 pg Critically low 26.7-34.0 [facility] Comment on above: Performed By: #### F ETIBC, B12FOL, FERR #### [facility] [address] [place] [address] Dr. Harshad Almanzar MCHC (RBC) [Mass/Vol] 32.1 g/dL Normal 29.9-35.2 [facility] Comment on above: Performed By: #### F ETIBC, B12FOL, FERR #### [facility] [address] [place] [address] Dr. Harshad Almanzar MCV (RBC) [Entitic vol] 82.0 fL Normal 81.0-99.0 [facility] Comment on above: Performed By: #### F ETIBC, B12FOL, FERR #### [facility] [address] [place] [address] Dr. Harshad Almanzar MONO # 0.5 103/ul Normal 0.3-0.8 [facility] Comment on above: Performed By: #### F ETIBC, B12FOL, FERR #### [facility] [address] [place] [address] Dr. Harshad Almanzar Monocytes/100 WBC (Bld) 5.7 % Normal 1.7-12.0 [facility] Comment on above: Performed By: #### F ETIBC, B12FOL, FERR #### [facility] [address] [place] [address] Dr. Harshad Almanzar NEUT # 5.6 103/ul Normal 1.4-6.5 [facility] Comment on above: Performed By: #### F ETIBC, B12FOL, FERR #### [facility] [address] [place] [address] Dr. Harshad Almanzar Neutrophils/100 WBC (Bld) 63.6 % Normal 43.0-75.0 [facility] Comment on above: Performed By: #### F ETIBC, B12FOL, FERR #### [facility] [address] [place] [address] Dr. Harshad Almanzar Platelet mean volume (Bld) [Entitic vol] 10.7 fL Normal 9.5-13.5 [facility] Comment on above: Performed By: #### F ETIBC, B12FOL, FERR #### [facility] [address] [place] [address] Dr. Harshad Almanzar PLT 324 103/ul Normal 150-450 [facility] Comment on above: Performed By: #### F ETIBC, B12FOL, FERR #### [facility] [address] [address] [address] Harshad Almanzar RBC 5.01 106/ul Normal 4.20-5.40 [facility] Comment on above: Performed By: #### F ETIBC, B12FOL, FERR #### [facility] [address] [address] [address] Harshad Almanzar WBC 8.8 103/ul Normal 4.0-11.0 [facility] Comment on above: Performed By: #### F ETIBC, B12FOL, FERR #### [facility] [address] [place] [address] Dr. Harshad Almanzar FERRITINon 11-07-2021 Ferritin [Mass/Vol] 31.0 ng/mL Normal 6.2-137.0 [facility] Comment on above: Performed By: #### F ETIBC, B12FOL, FERR #### [facility] [address] [address] [address] Harshad Almanzar FREE T3on 11-07-2021 FREE T3 2.55 pg/mlL Normal 2.18-3.98 [facility] Comment on above: Performed By: #### F T3, LIPID, CMP, TSH #### [facility] [address] [address] [address] Harshad Almanzar GLYCOHEMOGLOBIN A1Con 2021 ADA RECOMMENDATION SEE BELOW Normal [facility] Comment on above: Result Comment: ADA RECOMMENDED LIMIT 4.0 - 6.0 ADA THERAPEUTIC TARGET < 7.0 ACTION SUGGESTED > 7.0 Performed By: #### F ETIBC, B12FOL, FERR #### [facility] [address] [address] [address] Harshad Almanzar Glucose [Mass/Vol] 111 mg/dL Normal [facility] Comment on above: Performed By: #### F ETIBC, B12FOL, FERR #### [facility] [address] [address] [address] Harshad Almanzar HbA1c (Bld) [Mass fraction] 5.5 % Normal 4.5-6.2 [facility] Comment on above: Performed By: #### F ETIBC, B12FOL, FERR #### [facility] [address] [address] [address] Harshad Almanzar IRON AND TIBCon 11-07-2021 % SATURATION 18.8 % Normal [facility] Comment on above: Performed By: #### F ETIBC, B12FOL, FERR #### [facility] [address] [address] [address] Harshad Almanzar Iron [Mass/Vol] 48.0 ug/dL Critically low 50.0-170.0 [facility] Comment on above: Performed By: #### F ETIBC, B12FOL, FERR #### [facility] [address] [place] [address] Dr. Harshad Almanzar TIBC DIRECT 255.0 ug/dL Normal 250.0-450.0 [facility] Comment on above: Performed By: #### F ETIBC, B12FOL, FERR #### [facility] [address] [address] [address] Harshad Almanzar LIPID PROFILEon 11-07-2021 CHOL-HDL RATIO NORM SEE BELOW Normal [facility] Comment on above: Result Comment: 3.3 - 4.4 LOW RISK 4.4 - 7.1 AVERAGE RISK 7.1 - 11.0 MODERATE RISK >11.0 HIGH RISK Performed By: #### F T3, LIPID, CMP, TSH #### [facility] [address] [address] [address] Harshad Almanzar Cholesterol [Mass/Vol] 147 mg/dL Normal <=200 [facility] Comment on above: Performed By: #### F T3, LIPID, CMP, TSH #### [facility] [address] [address] [address] Harshad Almanzar Cholesterol in HDL [Mass/Vol] 45 mg/dL Normal 40-60 [facility] Comment on above: Performed By: #### F T3, LIPID, CMP, TSH #### [facility] [address] [address] [address] Harshad Almanzar Cholesterol in LDL [Mass/Vol] 89.8 mg/dL Normal [facility] Comment on above: Performed By: #### F T3, LIPID, CMP, TSH #### [facility] [address] [address] [address] Harshad Almanzar Cholesterol.total/Ch olesterol in HDL [Mass ratio] 3.3 {ratio} Normal [facility] Comment on above: Performed By: #### F T3, LIPID, CMP, TSH #### [facility] [address] [address] [address] Harshad Almanzar HDL NORMAL > or = 60 mg/dl - LOW CARDIOVASCULAR RISK <40 mg/dl - HIGH CARDIOVASCULAR RISK Normal [facility] Comment on above: Performed By: #### F T3, LIPID, CMP, TSH #### [facility] [address] [address] [address] Harshad Almanzar LDL CALC NORMAL SEE BELOW Normal [facility] Comment on above: Result Comment: <100 mg/dl OPTIMAL 100 - 129 mg/dl NEAR OR ABOVE OPTIMAL 130 - 159 mg/dl BORDERLINE HIGH 160 - 189 mg/dl HIGH >190 mg/dl VERY HIGH Performed By: #### F T3, LIPID, CMP, TSH #### [facility] [address] [address] [address] Harshad Almanzar Triglyceride [Mass/Vol] 61 mg/dL Normal <=150 [facility] Comment on above: Performed By: #### F T3, LIPID, CMP, TSH #### [facility] [address] [address] [address] Harshad Almanzar VLDL CALC 12.2 mg/dL Normal [facility] Comment on above: Performed By: #### F T3, LIPID, CMP, TSH #### [facility] [address] [address] [address] Harshad Almanzar PROF 14(COMP METB)on 022 Albumin [Mass/Vol] 3.5 g/dL Normal 3.4-5.0 [facility] Comment on above: Performed By: #### F T3, LIPID, CMP, TSH #### [facility] [address] [address] [address] Harshad Almanzar Albumin/Globulin [Mass ratio] 0.9 {ratio} Normal [facility] Comment on above: Performed By: #### F T3, LIPID, CMP, TSH #### [facility] [address] [address] [address] Harshad Almanzar ALP [Catalytic activity/Vol] 62 U/L Normal 46-116 [facility] Comment on above: Performed By: #### F T3, LIPID, CMP, TSH #### [facility] [address] [address] [address] Harshad Almanzar ALT [Catalytic activity/Vol] 28 U/L Normal 14-59 [facility] Comment on above: Performed By: #### F T3, LIPID, CMP, TSH #### [facility] [address] [address] [address] Harshad Almanzar Anion gap [Moles/Vol] 13.9 mmol/L Normal [facility] Comment on above: Performed By: #### F T3, LIPID, CMP, TSH #### [facility] [address] [address] [address] Harshad Almanzar AST [Catalytic activity/Vol] 12 U/L Critically low 15-37 [facility] Comment on above: Performed By: #### F T3, LIPID, CMP, TSH #### [facility] [address] [address] [address] Harshad Almanzar Bilirubin [Mass/Vol] 0.5 mg/dL Normal 0.2-1.0 [facility] Comment on above: Performed By: #### F T3, LIPID, CMP, TSH #### [facility] [address] [address] [address] Harshad Almanzar Calcium [Mass/Vol] 8.8 mg/dL Normal 8.5-10.1 [facility] Comment on above: Performed By: #### F T3, LIPID, CMP, TSH #### [facility] [address] [address] [address] Harshad Almanzar Chloride [Moles/Vol] 106 mmol/L Normal 98-107 [facility] Comment on above: Performed By: #### F T3, LIPID, CMP, TSH #### [facility] [address] [address] [address] Harshad Almanzar CO2 [Moles/Vol] 23.7 mmol/L Normal 21.0-32.0 [facility] Comment on above: Performed By: #### F T3, LIPID, CMP, TSH #### [facility] [address] [address] [address] Harshad Almanzar Creatinine [Mass/Vol] 0.76 mg/dL Normal 0.55-1.02 [facility] Comment on above: Performed By: #### F T3, LIPID, CMP, TSH #### [facility] [address] [address] [address] Harshad Almanzar EGFR-AF POLISH >60 Normal >=60 [facility] Comment on above: Performed By: #### F T3, LIPID, CMP, TSH #### [facility] [address] [address] [address] Harshad Almanzar EGFR-NON AF POLISH >60 Normal >=60 [facility] Comment on above: Performed By: #### F T3, LIPID, CMP, TSH #### [facility] [address] [place] [address] Dr. Harshad Almanzar Globulin (S) [Mass/Vol] 3.9 g/dL Normal [facility] Comment on above: Performed By: #### F T3, LIPID, CMP, TSH #### [facility] [address] [address] [address] Harshad Almanzar Glucose [Mass/Vol] 87 mg/dL Normal 74-106 [facility] Comment on above: Performed By: #### F T3, LIPID, CMP, TSH #### [facility] [address] [place] [address] Dr. Harshad Almanzar Potassium [Moles/Vol] 3.6 mmol/L Normal 3.5-5.1 [facility] Comment on above: Performed By: #### F T3, LIPID, CMP, TSH #### [facility] [address] [place] [address] Dr. Harshad Almanzar Protein [Mass/Vol] 7.4 g/dL Normal 6.4-8.2 [facility] Comment on above: Performed By: #### F T3, LIPID, CMP, TSH #### [facility] [address] [place] [address] Dr. Harshad Almanzar Sodium [Moles/Vol] 140 mmol/L Normal 136-145 [facility] Comment on above: Performed By: #### F T3, LIPID, CMP, TSH #### [facility] [address] [place] [address] Dr. Harshad Almanzar Urea nitrogen [Mass/Vol] 10.0 mg/dL Normal 7.0-18.0 [facility] Comment on above: Performed By: #### F T3, LIPID, CMP, TSH #### [facility] [address] [place] [address] Dr. Harshad Almanzar Urea nitrogen/Creatinine [Mass ratio] 13.2 mg/mg Normal [facility] Comment on above: Performed By: #### F T3, LIPID, CMP, TSH #### [facility] [address] [place] [address] Dr. Harshad Almanzar TSHon 11-07-2021 TSH 2.765 uIU/mL Normal 0.358-3.740 [facility] Comment on above: Performed By: #### F T3, LIPID, CMP, TSH #### [facility] [address] [place] [address] Dr. Harshad Almanzar VIT B12 AND FOLATEon 022 Cobalamin (Vitamin B12) [Mass/Vol] 689.0 pg/mL Normal 193.0-986.0 [facility] Comment on above: Performed By: #### F ETIBC, B12FOL, FERR #### [facility] [address] [place] [address] Dr. Harshad Almanzar FOLATE 6.90 ng/mL Critically low 8.60-58.[address] [facility] Comment on above: Performed By: #### F ETIBC, B12FOL, FERR #### [facility] [address] [place] [address] Dr. Harshad Almanzar Quick Strepon 07-27-2021 S. pyogenes Org specific cx Ql (Throat) Negative Ubitricity Other Quick Strep Ubitricity Other COVID Quick Testingon 2021 Result Negative Ubitricity Other Quick Fluon 06-18-2021 FLUAV Ab CF (S) [Titer] Negative Ubitricity Other FLUBV Ab CF (S) [Titer] Negative Ubitricity Other MRI KNEE LT WO CONon 022 MRI KNEE LT WO CON EXAMINATION: MRI KNEE LT WO CON HISTORY: Derangement of left knee ; medial knee pain since falling 6 days ago COMPARISON: No relevant comparison available. TECHNIQUE: A complete multi-planar MRI was performed. FINDINGS: MEDIAL COMPARTMENT MEDIAL MENISCUS: No visible tear or significant degeneration. CARTILAGE: No visible defect. BONES: No marrow pathology, fracture, or significant arthropathy. MCL AND MEDIAL CAPSULE: Grade III sprain of the medial collateral ligament. LATERAL COMPARTMENT LATERAL MENISCUS: No visible tear or significant degeneration. CARTILAGE: No visible defect. BONES: No marrow pathology, fracture, or significant arthropathy. LCL/POSTEROLAT COMPLEX: Normal lateral collateral ligament, fascicles, lateral capsule and ligaments. ANTERIOR COMPARTMENT PATELLA: Mild edema within the marrow cavity at the inferior pole and lateral facet. CARTILAGE: No visible defect. TENDONS: Normal. EFFUSION: None. No synovitis or loose bodies. ACL: Normal appearing ligament. PCL: Normal appearing ligament. MENISCOFEMORAL: Normal meniscofemoral ligaments. OTHER: Negative. IMPRESSION: 1. High-grade strain versus partial tear of the medial collateral ligament. 2. No appreciable tear the medial meniscus. 3. Suspect mild bone bruising of the patella. Electronically authenticated by: RONEN MENDEZ Date: 2021-04-28 14:53 Normal [facility] XR knee LT 4V*on 04-20-2021 XR knee LT 4V* [facility] [place] [address] [place] [id number] XRay Report Signed Patient: Juan Ramon Reeves MR#: [id number] 32 : 1985 Acct:[id number] Age/Sex: 35 / F ADM Date: 04/20/21 Loc: XDUCLY Room: Type: [facility] Attending Dr: Jaycee Teran APRN Ordering Provider: Jaycee Teran APRN Date of Service: 04/20/21 XR/XR knee LT 4V*: Fall, initial encounter Copies to: Jaycee Teran APRN XR knee LT 4V* 04/20/2021 6:15 PM SIGNS AND SYMPTOMS: Fall onto left knee with pain since fall over the anterior and medial aspect of the left knee. Pain radiates downward to medial portion of the proximal lower leg PROTOCOL: Frontal, lateral, and oblique radiographs of the left knee COMPARISON: None FINDINGS: The weightbearing and patellofemoral joint spaces are grossly preserved. There is no evidence of fracture or dislocation. No significant soft tissue swelling or joint effusion. XR/XR knee LT 4V* IMPRESSION: No acute bony injury. Impression dictated by: Abhilash You M.D.04/20/2021 6:24 PM Dictation Location: [address] [place] [address] Transcribed By: [facility] 04/20/211823 Dictated By: Abhilash You II, MD 04/20/211821 Signed By: 04/20/211823 [facility] Coding Summary.on 02-14-2021 Coding Summary. [id number] LXn7mEi+PGhlYWQ+PE1 NQKCoU48wgJQhtS9LL0 aFSA9SXQNZEPFINU9SL X4bnBH1PXhmC4CczjNd RkgzlPYtHX47FWn8VSQ 2pWgmVImmzH6vvVXiA4 h8FnToTT77cD89RYjfG ZAyDwM5JnSqbvwupRDv Q1lfOoMrdEKvQwr+PHR hYmxlIHdpZHRoPScxMD QuYqFhbOzeFP0cHo8yZ GVyLWNvbGxhcHNlOiBj x9woTPYxOWuaVT8yyQq sA5YznMN5UETtw8u5Hq 48dHI+XVMgSEK0fLiqB Ipnv021WbMty3udKPG0 rPXyTSeaDGC7T53ti3X 3ZNImBYByTQI2gML5yY 9sfZotcxdsM5BooNMeO qJ6QXR5aSTzdI0fxLrq vacdhY5gYsy+D45ZJS5 IYNXHSI9CWbu0Q2NhCz wvdHI+NT54XIYqUK51i MFqeNRbk6bswZm0VjNe RWBmBCI9oYvlNYnqp0E hBOHkA56ovEAfm0B1HN XxnDwvdMMzAsVgiBW7x H6mVKuiveoes7bipqle Cxxpy7wavg06pB12N13 tLOguAJKoJNZ6WXNiMB QqqSfnpq5wnY3nDx0+I Bnoe8hqw2wkxEx1ChRv ILKgutIkiNboNVZ1u5K cUj12K0AitRhpo6WvEv d2sl58pTZxz1O5nEP0S VfyLYJoiP8nMEjxTeH0 QCDgFmVphQ93nNRaXYj jXx2lmJrizYhxFO5sJP YnfdlbWJEaaI1uAKSqp JKcmAiqXC5wFYSrthyi i160VeKgQVD3PSZkiUH tB8WuwD0pUmOdISZeRX VcZ7PtyQNwDGwoT763E XugEbU2XWJmgiJpE4Hr ZVYjzEbrQrT7a9T3Ni1 Ac2LxndwfXET9STwrGP JzXgM9ZcPwCfU4C8KsR oa7XNJpcEypYX6tH5Lz LGIngutccwmnrUJ0FLY yAXSlpJ75hNHmUBlmCq 8jx1Y9t996ORReXEQyc U30Eh2wuGvoPXRmgCRI rQ6gdmjxc1sovmfgTcP yDRZaOBf8IDl4LTEzhJ foSbHvIHL0WwV7KPP6d BWjqQ3rmNlwnxptwK3z Oyc+D74pqP1rTGB5YYU 7pdmoVFRcalAsOV61PJ 51N0KxMtcjvGVdmOK+P WCpflVkvCnmCJ4kZoFs m0knx0SvWEqzN0MwYKJ qVZllFgp1HBEhEQR4sG V4bC0eBDQlVTxjg1F7b YC3T4JdnjLkno1ej3xw EPUsMPmdN13rcMYlq7Q 6KYTeqXW3SXOtcObhRo JcbI19Kif+PGNvbGdyb 8BiAwoir9ynr8cmnBg1 IjMwJSIgdmFsaWduPSJ 3l8IoZl22V24dPPdnDZ RoPSIxNSUiIHZhbGlnb u4qvP0dTp5+PGNvbCB3 pSG7zU7eCYKlMiP3YXm mD388InEtuYSmMzxdz3 ueh1jheIq8GqPmSCNba lFswJglCGC3u5GjZc14 N06mNZdgAJTzLYIlNQP uDPFncNpshb7jhI4gNu 8+TU8op7ylff19uW35m HI+EGJuNGF1bWjzTUbf QUEeqX4sJMknGgZ2DPA rPsCseM20rZBsRCdgYl 6oxQivqIrgZB1nPFJgt dkuq216EgAdy5grNYPs tBNqNGlaLVO3L88tn8L 0LUIbGXXoSGB9wCA5qM 1hbGlnbjogbGVmdDsgd sLwlKkwIRttBFplT834 IHRvcDsnPlBhdGllbnQ nPgBbQRq7A2CaWpb4UA JivAxxDG6nsEIsCYzhJ y7qmWufpGvhNX1gBPGs kwfpj264NfQtl4blSMD cuQZsEDexTYK8C54uz3 Y0ZUUeORVjHQO9bMH9g T7mjFewatruvOMzbLfi ltKwbJuhJHjjTCmsI13 6IHRvcDsnPkJpcnRoIE TwxUW1GZ34XN61zMAgt 8Q6yDG2L9AzUSOyqcls horfcEQ1LMRbNXRrhJ6 2Oo8zaRxjLj3hMPKnAJ P6UYVprHZgP0MdaN2bG rIvXMCbNFXjS4CjzUPs RPkaP082IWjiZuB3IUQ ozlXxM0RaQZXmvGmzQg F8b6H0Rx3DT1Q2RE78I N67lGYzv5A5vAC4U6Pc GEJngloftwchxBA2MUI hIPJfaV28Bq1vrCjnEu 5fHENyAJR7MTGfxBDwK 5XggT8lBaVrEJWqWKLb U6NtnQMtWKfaR123EAm kOvA8IKWnrmCeU9DhHU UwoFlhGgM0s4Q1Ll0PI Gs0SL27IV05dIZms3Z6 nPF2I8BvGQHgmpzuvbu swII4FZAxEFTgxH90Aj 2opFuaGo3zFYYnRJU9C QRwwXYlI6SwwI0cHsUu REBaPLTpB3EdgCOuYHe uY568RPorRwN8VJWmxi QwM9IrFNVywXraMgA4s 2W8Fj9LIDFkUG95YFD2 nLG2QJ35IH90W3NzIwn vdGFibGU+PHRhYmxlIH dpZHRoPScxMDAlJyBzd SzfJQ9dBj3qYAZiXXKe fBnmkRKeKbOqw6hqCZX fSQqrHR4etCzkO5PtkN S0OQScf9u0Kp01F37vR 3JvdXA+ECGshPK6gUU9 iZ2jXyPhOhL6JUlqI61 0FvBzwJOmAngpx2klq5 azhNg3YkD8WJQkqkKov BmqLRO2l3PgTj44N13w IHdpZHRoPSIxNSUiIHZ hcIjxza7ggO1gEf3+PG OasAX6zGA3qG1jKsDfR tC2PMukE737VkSjfZWr Qsvtn8abq7prkDd2RnJ uYURylzZlxDxgZIQ1q0 XsPg47V6GvpMmtm6VuE rw5wh89kZEru7Y4mVU4 R4EfLWYjpnelmWHcxXj eMM0vPFVlzffcSETsgG 3yRYBeP7n1OiXgPxT8C VniF1NbdbP4VAKewYRm QTlaNBU0G29dq1W0TRA hBXVcVHT4mGE9iO4dkA lnbjogbGVmdDsgdmVyd ErsMZwjQJzqL048VKZq tFeoJJQtuI3pFPYpuDP tyRewLR3iNKGmhhjwOd JBUFAsIEJFVEhBTlkgQ TwvdGQ+YSSjVQO5vSht RQjqFIXmyA1hHXWkR5o 8AjDxSrU1MByfA4TzOT PbovetPk02aT3qZnFsT jG7URgxE9BihrH7BHQq uRWzGLcuSFF7S12pf7V 1PYNsPCYaLTQ8fJV1cH 1hbGlnbjogbGVmdDsgd oTgdNscGVgpLWscR284 OWLvjEmaJaK7TdZwGrX 1QHF7D3CpLfz5CZXmkH lhYS0hxWHhFLsjMy0we UczrBftGP4iBULoessx MFQsiW5zNQEyqNCzkZz fLU1zACHqnipjv342Tw NqQMW3JHHtqFRyH5Qua J8wBqHdZUWjKGLbA1Dc qDOjLAgyT434RSuuMjI 2FXKyqgJdT1NzLYDrdF ubOfC6f3O8Ul2hZxUMH WFyczwvdGQ+PHRkIHN0 vXhoZNbcGUDlnA1wWFF cF2q2SwDwGmT8IXlwW1 NdKWXjirnoLx03lI2vX uHxTsV3DBmlR3MpcqT8 UQNloQLmNKozKEN7W69 rh4T3PXOkNDFiIAN1zG P8zF4wtWeuptuysRZxx DsgdmVydGljYWwtYWxp A632ACBrhQwgCwAmiDZ sZTwvdGQ+QVSnVOK1wP tvBKmtSHGblN6oKKWwI 6r5LjWtXqP6NMntU2Uu NIQnwnmkLy81nK3vUnH zWjH4KMirS6JctfO7GQ NecSEaFZujFZM9E59mc 3W9CEGsCLSzTUV2pPB9 sB3atHorypxsrWMpmNk gdmVydGljYWwtYWxpZ2 09PBLxaXybDo90jCSuw AetazK4F0TcTowcdKT+ DH93KYIjIU49rQTtuQY cc4gsjDd4UrGgYCCdXM H4tUvgNMdew1CzBMZqF 78tyJEis6S2WGTimOep mGLqIxImhYO1kA9kMIs bunmzf6cokxjrHfpqq3 fdgy18dD51N74iNSwnR HRoPSIzMCUiIHZhbGln ql8wpU9wZr9+PGNvbCB 1bPO9sS4pEzPzXaY8NW thF186QxJtzQYzDyjym 4gad8zajGe4LnXlIAOw chHokKpmCXT8l0WcTx7 4B97mKDwwRJUhNIXsAH HrHURpvLuaku9zlF8sX i8+UK1xg7jzyh61dL30 dHI+SKDqEMD2uHccKBm gJKMagL8wEDnkMvS8SN DpRlUnwA74aIGvHDmeL h6bkFrgjPhnBR3lQRTb dxcfz011IuXwj7hkGYU ekFIqOJytKXY9M18bc7 V6RKEaRWMeIIS5cEA9o Z4flYohbrbgmOKjoPsa jeVtvTpnXXqhCAhyC16 6ARLreQhaHnIneEHmS8 djkgBHFO1pJgglaAD+P GWyZIS9xEqvHUyrXWGv gC4yGHCbX0p1EsIeZjG 6GEhoB0NyanW4GWGjaS BdARVtpRVOkT5cqkevk 0dsjlnwPqHmOQDzIUg6 WBs1ZUZlwOmfQbRvOYS 1JzD5RGU2bKEzdJ6ckK jpuikfsZ1qVqe+RklOO jwvdGQ+YPCmKGO8pDbi ECiePYPejB6bOAMnD0v 0VnMvGgJ7LRdrX3Ikno L0GGXsgGAoRCMoqGFFp H9vzpmne4zywtqgMyXz SMTgRVr8ENn0JKPnmAw sWpQsCOA3BbD4JAD2rN TsxV5gkUsowpkhuZ7pN yc+TVJOOjwvdGQ+PHRk VUH3oOiyOYcxITOiqU6 dPYWoM2b7QvVrIjW5BD buG2TxybD1UIDzyTLhM JJieYLNdS0gyeyaw6nf jkmhKpZwDSAuXOy4BFp 7YDHkrVgoFuMeBKE3Ry R6XZG9bNGglC2eeMqqy akmjS3eMkf+NWN7OHV8 ZC02PT12Y6CfPhofaCO ibGU+PHRhYmxlIHdpZH RoPScxMDAlJyBzdHlsZ X8oOa7fSOGaHELcaIvg cHNl (more content not included)... Normal [facility] Auto Diffon 01-27-2021 Basophils/100 WBC (Bld) 0.9 % Normal 0.0-2.0 [facility] Comment on above: Order Comment: Order Added by Discern Expert. Performed By: #### 2 [id number], [id number], [id number], [id number] #### [facility] [address] [place] [address] Basophils/Leukocytes Auto (Bld) [Pure # fraction] 0.1 E9/L Normal 0.0-0.2 [facility] Comment on above: Order Comment: Order Added by Discern Expert. Performed By: #### 2 [id number], [id number], [id number], [id number] #### [facility] [address] [place] [address] Eosinophils/100 WBC (Bld) 2.0 % Normal 0.0-8.0 [facility] Comment on above: Order Comment: Order Added by Discern Expert. Performed By: #### 2 089478, [id number], [id number], [id number] #### [facility] [address] [place] [address] Eosinophils/Leukocyt es Auto (Bld) [Pure # fraction] 0.2 E9/L Normal 0.0-0.5 [facility] Comment on above: Order Comment: Order Added by Discern Expert. Performed By: #### 2 189405, 8607326, [id number], [id number] #### [facility] [address] [place] [address] Lymphocytes/100 WBC (Bld) 19.0 % Normal 14.0-50.0 [facility] Comment on above: Order Comment: Order Added by Discern Expert. Performed By: #### 2 122355, 7331980, [id number], [id number] #### [facility] [address] [place] [address] Lymphocytes/Leukocyt es Auto (Bld) [Pure # fraction] 2.2 E9/L Normal 1.0-4.0 [facility] Comment on above: Order Comment: Order Added by Discern Expert. Performed By: #### 2 227076, 2323456, 9487228, [id number] #### [facility] [address] [place] [address] Monocytes/100 WBC (Bld) 4.3 % Normal 4.0-14.0 [facility] Comment on above: Order Comment: Order Added by Discern Expert. Performed By: #### 2 552835, 9904701, 6277586, [id number] #### [facility] [address] [place] [address] Monocytes/Leukocytes Auto (Bld) [Pure # fraction] 0.5 E9/L Normal 0.2-1.0 [facility] Comment on above: Order Comment: Order Added by Discern Expert. Performed By: #### 2 131386, 0413043, 0383187, [id number] #### [facility] [address] [place] [address] Neutrophils/100 WBC (Bld) 73.8 % Normal 36.0-75.0 [facility] Comment on above: Order Comment: Order Added by Discern Expert. Performed By: #### 2 288643, 3221382, 4694679, 3494513 #### [facility] [address] [place] [address] Neutrophils/Leukocyt es Auto (Bld) [Pure # fraction] 8.7 E9/L High 2.0-7.5 [facility] Comment on above: Order Comment: Order Added by Discern Expert. Performed By: #### 2 604635, 9597164, 5142013, [id number] #### [facility] [address] [place] [address] CBC w/ Auto Diffon Erythrocyte distribution width (RBC) [Ratio] 13.5 % Normal 10.9-14.2 [facility] Comment on above: Performed By: #### 2 263524, 9878907, 2772035, 9733701 #### [facility] [address] [place] [address] Hematocrit (Bld) [Volume fraction] 39.9 % Normal 34.0-46.0 [facility] Comment on above: Performed By: #### 2 580701, 8856604, 2995233, 3080737 #### [facility] [address] [place] [address] Hemoglobin (Bld) [Mass/Vol] 12.9 g/dL Normal 12.0-16.0 [facility] Comment on above: Performed By: #### 2 248058, 9835947, 7078812, 0457145 #### [facility] [address] [place] [address] MCH (RBC) [Entitic mass] 28.0 pg Normal 27.0-34.0 [facility] Comment on above: Performed By: #### 2 023213, 4669834, 1137297, [id number] #### [facility] [address] [place] [address] MCHC (RBC) [Mass/Vol] 32.5 g/dL Normal 31.4-36.0 [facility] Comment on above: Performed By: #### 2 068539, 4548057, 9043125, 8153041 #### [facility] [address] [place] [address] MCV (RBC) [Entitic vol] 86.2 fL Normal 80.0-100.0 [facility] Comment on above: Performed By: #### 2 601409, 6241773, 2487916, 3196116 #### [facility] [address] [place] [address] Platelet mean volume (Bld) [Entitic vol] 9.3 fL Normal 6.4-10.8 [facility] Comment on above: Performed By: #### 2 137234, 1154812, 6636531, 6989166 #### [facility] [address] [place] [address] Platelets (Bld) [#/Vol] 286.0 E9/L Normal 150.0-500.0 [facility] Comment on above: Performed By: #### 2 464145, 4895609, 4499606, 6826027 #### [facility] [address] [place] [address] RBC (Bld) [#/Vol] 4.6 E12/L Normal 4.3-5.9 [facility] Comment on above: Performed By: #### 2 894627, 9506592, 6188398, 2313516 #### [facility] [address] [place] [address] WBC corrected for nucl RBC Auto (Bld) [#/Vol] 11.8 E9/L High 4.0-11.0 [facility] Comment on above: Performed By: #### 2 616475, 5583310, 4042854, 3644296 #### [facility] [address] [place] [address] Consent for Treatmenton 01-18 Consent for Treatment [id number] 0C#[id number] Normal [facility] Ferritinon 01-27-2021 Ferritin [Mass/Vol] 68 ng/mL Normal 11-307 [facility] Comment on above: Result Comment: NORM ALS MEN <30 YRS 16-132 ng/mL MEN >30 YRS 8-338 ng/mL WOMEN (PREMEN) 6-104 ng/mL WOMEN (POSTMEN) 12-210 ng/mL Performed By: #### 2 451011, 4517612, 1901652, 0842626 #### [facility] [address] [place] [address] Ironon 01-27-2021 Iron [Mass/Vol] 44 microgram/dL Normal 35-153 [facility] Comment on above: Performed By: #### 2 894188, 3095807, 8968019, [id number] #### [facility] [address] [place] [address] Coding Summary.on 10-03-2020 Coding Summary. [id number] PMj5zFz+PGhlYWQ+PE1 HAIVxW56ndRGvnA3OJ5 nAQK1QQPRURYZFOH2QB P4ueQM5CMbaV4IiivIu IqioeLPdXZ52EHv3CVV 0gSbiPEsraS4xzWKmA9 f7AjFmYI67dJ24NLusD LXjYvQ3RsPvnttkdYXt C1utKrGkuOPfHsy+PHR hYmxlIHdpZHRoPScxMD KoVrIxiMbrYI2nFa6fM GVyLWNvbGxhcHNlOiBj s6dkKNAsACpmDC8yrDv bP5AkaRE0SXWkd8x1Mp 48dHI+WWSwRLV1zGwjX Wnof012CwXik0frUFM6 oWCyXDzoBHY8M15lx4K 2KCRoBOJlATE7rDI8pY 6ydGeuozcfQ0MblKZwP eU4XLJ6bQXrnL1uhOjk dfjxeZ2vSjg+R29HBJ2 EMMUXGB7PZjf7P0AzNy wvdHI+LU89RXApJE01c LPjtZXch7julCo3GkQy QIWaDEZ4xXbuVEquv9Q eLMInZ68yxIYti5F8OQ XpbNomyNLhGnPwpER6z O5pVEizrweir2txukju Qsjnv1qcza44vT89H92 ePVkmAQEgWHV9IPXaXK KpaJrhue0vsC8iKw1+I Bdbe8cdg8aplVh9XaIs NQHwanBeoLebLHT0c2T nBu49Q7ZapXqte0WrKi g9ds46fLKbg8D1yZC6H TywGMDhaA9uVNagOxO6 HGJnAvHjxL02bNYbUWh nHb0ioWmicYwmJF6gXQ JlaldaJEAnkI2sMCBqn FIwtUnkUH3eGYDrbtnn a498RnTmVPL6AHQfkXB xK1FofT0cWdWyOJMsSJ RuK7QypUMgQPhtA467P BxoDwW9YTUkjpInT0Jy ASQjcCrqKrT5g2K0Sd6 Ey9UwtgqlEQG2PTmzSE A1YoC8HvClYyF0Q7YaH pd9KPMucExiCS6dR6Dq JGWjdjkkrccyhKQ8SWP cUFVrmZ76sNEpYQnlCh 7mt5X7t275GLIxVZNgs N23Yq4yfFjvBJUutVJS fH2bdoyzs8fanqwdTsZ kULAgMWj2SYk5SWSxoR agYsQsPNK0JpI6QVW6b QRehJ9jsEfszfdxeA7m Oyc+N65qxJ5xTOG5JWV 7abveMIOjxwFkZH05PV 47E9OoAbfqpKJygIU+P IBzriNmwKhePR0eJuMf n7wvr4UjRGriC3AjKFJ rRAtrKnm0XDDbPLE0jL H9iP4qUYEjAGpnj0S0a VP2O6VnpfGmnx7xr1ci UWObPXbgU14kpEPtw1Q 1OSGiqEG3BFOvcVcnGd OtuL03Jas+PGNvbGdyb 6NsEbgsx6xyb0yijRg0 IjMwJSIgdmFsaWduPSJ 3i8HkUo70E65dFYyuYN RoPSIxNSUiIHZhbGlnb n6thE9zOp4+PGNvbCB3 xVY7oW8rKQWtJgU4XRv pZ244GrKzqKUkEsbii0 rbs9hkiTi8UlPhPJJvb lWxdHyfVVU4i5LcAr68 O26jIOrxYEKpGEMeWEX bVNUwgZpxxb0wkV2dIi 8+EF7ng6bbrh93lM64i HI+MNCtFOU9bYepWIvx YLVsoO4uFXhzQcN6VSL qIaJsfJ56lLEiTXjmUg 1cyMkbzCuaVX1jWTAig vxpx772VqLpg3mgUFRb cPArMTduTOQ6P93un6S 7HBElASHgRPK8xPZ4iR 1hbGlnbjogbGVmdDsgd eJzdPmlURphCMzkU647 IHRvcDsnPlBhdGllbnQ lXhYrNTh3R0RsUzb1BP HwhSlaDF5ezDQmXPxwS z9jrOfifIsuLL5jZFVh gubnu738FfOlc8phQOP ipQFvSYvsAJL3N27un0 I0HLYyKEQhWFG4mXG8y C4slRprnqxpvMXfvPkp ojKuuRfnDRrrUXynV43 6IHRvcDsnPkJpcnRoIE KmdIT0RC38AH51mJHvk 0H0kYZ0D2KvKXWopppe yojnoRP6XCQeAHGfkO8 7Lk7ktBztRt9sXHIcQQ Y0XRSxbNYdV1YyrA4hD aItMBFdZDGbN9YkzSSr LXlcU678NNxqDsX8YRB mesXcL7DeSUKfdOtjYo P0c3K0Wg4LM5O7RB53L V50gAWhh5N2rRH3P2Bz EFKlnohvqpsahOE8PZJ iICNdqU58Wu7vpBpgPf 5mNKWhKWX5ICHnqIMkW 2DpeZ7lGyXdUCWbSVEx A7VvrHTiHEscS364WWq mViJ7FBUhitPuW7GgZD FetWflIaY0f8N5Ei8CB Fi7AE05MD57kQGhl2H5 wZH3K2ZmCHSpeywbehv uoYD9QLAlUHItuI16Ej 2ihIcwYg1qEVHtDJF8N JOkvLSfM5DxlD0gHgXy CGNeMCNuL2YmkVImYJk cW231BBnyPpQ7DISbcs TuM7CvKRMooIjlAnP3s 8O9Gb2FNTDfKS40KVZ2 qMT2PR20II01F3RtXfk vdGFibGU+PHRhYmxlIH dpZHRoPScxMDAlJyBzd AdjYU5yYt7eQNBySUYb mEdnuUEgMaKiu5zkOQO eXHxsUD3bkNbdZ5MtdQ G9YGNqb1y4Ur80L12eT 3JvdXA+CKXfqGO1iFC3 lB5bGvAzUcI1ZZvkM56 0BxIzeWHjMyuck8hcb8 aigRf7JiI0CSZhxrDls KwtVCK1i3DaJl06S41y IHdpZHRoPSIxNSUiIHZ ykCtfsr9ovE8rDg8+PG ScfYM1qTM1fX4pWhIgT qE4FEvdE851CbApeJVw Wzfxw0jun2mquEg7LfH uOBQgnpVszKdjOBX0b3 ScWi60F8NtzFzka1PjP nj6al86aKLfj4T6aPL8 Q2RwKORfivarrYLpzQc zNA9dHRDlqewlNQVkjO 9lSZNnA3w5CnVkEyW5B XvuV7PyahA8OPOxaEBq JRhjJTV0I25qq4H8YLI rKROiWUE0kJX7gE8evY lnbjogbGVmdDsgdmVyd SnkLHczXCpxY707KJMa aFxbKCYevG9kZORoeCX dwAwcDB9cYDZuiurfNu JBUFAsIEJFVEhBTlkgQ TwvdGQ+SNAvANW9wTma GUlnAETaqR5zPGJfT7h 8EdEuNpN1NIrjC1DsMV GezgcoIe25tH8sCdBoQ pC1BLlwJ5MqrvT7LSLm oLZkLVykXNT8L29rq9R 9ZSQxNCGwEEN4hUK4uX 1hbGlnbjogbGVmdDsgd lKyoRivEHzbBQwjW755 FXIwmPojCwA8ZxVfEeM 2OHM9R5OpFxj1CYEsaL vjYH1vlLOnLRpaVd7rw VpxrKsrFR6aAQIpjnrm WODddS2jZESbfGUkgRq mKP9zJAMqvevyt988Vu GqQSF2LCNksNJsN2Itg E8cLpOrDCByMZWhG4Yl bPRjYCpaH116LOjfFnK 3OMXzmoSnR1MjUTEdwR htArV2s9B0Zx4fHpAFT WFyczwvdGQ+PHRkIHN0 yOrnDOkfVLHrzO9zIQF kN7h7WmQuSaA7JSflH8 QjQGTrcpqhWv94iS7eX vMqNdP7ARowE4VbajG2 KBPfgKBeUVffRTN8X32 fc5P3STKeNTRrKVP8vH P7sJ0bsIilfdeobPBql DsgdmVydGljYWwtYWxp B018XIXytTmgUiWosED sZTwvdGQ+WSDmTYV0lC vnQHzgBEHpwI5xUJFsB 8k6YuVcOdH4LBkoN8Th FGXpvuyiVm24fS5pMrV fXiQ8JEsxG6UdahO8AE HvvGPzCWnrTEQ1A18ga 3D0EEAtKGHmKQM2pCD9 xH4zzWhbtsdgkKMghJh gdmVydGljYWwtYWxpZ2 29BLTwwGjrXn91vXAah TbgatQ0C4PkGpjlqOG+ BY04IUCfOI94gLNaxZQ hg3ppmCd6MsMjJLCjRO C8yFpbTHkae6SqLCRqT 13puPNrp0T8BBEngCoi qLYsQqHpnTN9jP1rDEm exdxtc5xkaymiGrluc1 udtl91cN39D09eWOvnK HRoPSIzMCUiIHZhbGln bn0byA7jGy8+PGNvbCB 9mML9zP7oOoTwOfA1FR goB872WcNmqHLcIzbhr 2mxm8pvmMn0IaQgHEMn tuQnbBdfQLM9r4OpWp2 9H41pACjkASFlAKTlYF RcDQQmgLjqlu2bxY5gR i8+PJ6yt6uygj23mM99 dHI+AWJvHHY3gKlrXRm nMYSmgW3wUNzwNgW4YI TuMeTkvH78cXShRAuzF f7akUymuQlrVT0dADZf cheby758ZiEcn8azHPL iaFYiAWsxLEM5P19ph2 T9DHKxSFZnSZB6sVS7s M6upTfkhsqyzBXspNqx lfCydNghDHrtNGzbC82 8ALOtlNfiJlTmrGWrI4 cpxiGIGY8sExzwqNE+P JEkWOE3nDpeKVxuRCUd vQ1oYUVxL3s5UyImFgK 2ORzuY2DttaQ4TWRykL IpGIGojTBLwJ1nigtlu 5snguasBeZeMKGkQZw7 HNw8EDWzzDruIbKrUAP 1HsZ4MUV7xZNjvL2csD fuvuhswP8bOcy+RklOO jwvdGQ+YQYgZRE9jRlb TMkiZZRxqO5iZFKoL2f 6RpKxApF3LSeoK7Mzsx U6GDLpwAVoHRZtdKAJw C0bskgvg2pxepxhXkEt XMBtSXj6VRt6GMVbyJf oFyJpQAN8OuZ0LXA0lS LuqC5qtBbjgcvzcE5kC yc+TVJOOjwvdGQ+PHRk RMH2iVizIYitRQOybJ6 qQKXnG8j7MfBzDkP4CB wqW2AstiX7AVPzjRZkP CSkzZPRrT7ixvesi6mv tecpOuNpZXObMXa6GTq 3WOVdlOmxQeRhOSZ1Bt B4WOF4gDOctK6siCkmc ixoyG7eFiu+RIU9WLT6 FG97CE90Q8XnUotfkES ibGU+PHRhYmxlIHdpZH RoPScxMDAlJyBzdHlsZ G0wKh6qBFRzVEWnmNue cHNl (more content not included)... Normal [facility] Vital Signs Date Time Vital Sign Value Performing Clinician Facility 12-17-2023 09:54-0400 Body height 165.1 cm Cary Huizar PATHOLOGY SECRETARY/TRANSCRIPTIONIST Work Phone: [facility] 12-17-2023 09:54-0400 Body mass index (BMI) [Ratio] 52.25 kg/m2 Cary Joepatrick PATHOLOGY SECRETARY/TRANSCRIPTIONIST Work Phone: [facility] 12-17-2023 09:54-0400 Body temperature 98.29 [degF] Cary Huizar PATHOLOGY SECRETARY/TRANSCRIPTIONIST Work Phone: [facility] 12-17-2023 09:54-0400 Body weight 142.43 kg Cary Joepatrick PATHOLOGY SECRETARY/TRANSCRIPTIONIST Work Phone: [facility] 12-17-2023 09:54-0400 Diastolic blood pressure 64 mm[Hg] Cary Huizar PATHOLOGY SECRETARY/TRANSCRIPTIONIST Work Phone: [facility] 12-17-2023 09:54-0400 Heart rate 83 /min Cary Huizar PATHOLOGY SECRETARY/TRANSCRIPTIONIST Work Phone: [facility] 12-17-2023 09:54-0400 Respiratory rate 16 /min Cary Joepatrick PATHOLOGY SECRETARY/TRANSCRIPTIONIST Work Phone: [facility] 12-17-2023 09:54-0400 SaO2% (BldA) [Mass fraction] 98 % Cary Faganzpatrick PATHOLOGY SECRETARY/TRANSCRIPTIONIST Work Phone: [facility] 12-17-2023 09:54-0400 Systolic blood pressure 110 mm[Hg] Cary Faganzpatrick PATHOLOGY SECRETARY/TRANSCRIPTIONIST Work Phone: [facility] 11-26-2023 08:30-0400 Body height 165.1 cm [facility] 11-26-2023 08:30-0400 Body mass index (BMI) [Ratio] 52.09 kg/m2 [facility] 11-26-2023 08:30-0400 Body weight 141.98 kg [facility] 11-26-2023 08:30-0400 Diastolic blood pressure 80 mm[Hg] [facility] 11-26-2023 08:30-0400 Systolic blood pressure 110 mm[Hg] [facility] 02-21-2023 14:30-0500 Body height 165.1 cm Jaycee Teran Other [employer] Other 02-21-2023 14:30-0500 Body mass index (BMI) [Ratio] 49.92 kg/m2 Jaycee Teran Other [employer] Other 02-21-2023 14:30-0500 Body temperature 97.4 [degF] Jaycee Teran Other [employer] Other 02-21-2023 14:30-0500 Body weight 136.08 kg Jaycee Teran Other [employer] Other 02-21-2023 14:30-0500 Diastolic blood pressure 86 mm[Hg] Jaycee Teran Other [employer] Other 02-21-2023 14:30-0500 Respiratory rate 18 /min Jaycee Teran Other [employer] Other 02-21-2023 14:30-0500 SaO2% (BldA) [Mass fraction] 96 % Jaycee Teran Other [employer] Other 02-21-2023 14:30-0500 Systolic blood pressure 134 mm[Hg] Jaycee Teran Other [employer] Other 07-27-2021 17:30-0400 Body height 165.1 cm Mariaeelna Peres Other [employer] Other 07-27-2021 17:30-0400 Body mass index (BMI) [Ratio] 53.24 kg/m2 Mariaelena Peres Other [employer] Other 07-27-2021 17:30-0400 Body temperature 98.4 [degF] Mariaelena Peres Other [employer] Other 07-27-2021 17:30-0400 Body weight 145.15 kg Mariaelena Peres Other [employer] Other 07-27-2021 17:30-0400 Respiratory rate 18 /min Mariaelena Peres Other [employer] Other 07-27-2021 17:30-0400 SaO2% (BldA) [Mass fraction] 98 % Mariaelena Peres Other [employer] Other 06-18-2021 10:20-0400 Body height 165.1 cm Jaycee Teran Other [employer] Other 06-18-2021 10:20-0400 Body mass index (BMI) [Ratio] 53.24 kg/m2 Jaycee Teran Other [employer] Other 06-18-2021 10:20-0400 Body temperature 98.1 [degF] Jaycee Teran Other [employer] Other 06-18-2021 10:20-0400 Body weight 145.15 kg Jaycee Teran Other [employer] Other 06-18-2021 10:20-0400 Respiratory rate 18 /min Jaycee Teran Other [employer] Other 06-18-2021 10:20-0400 SaO2% (BldA) [Mass fraction] 97 % Jaycee Teran Other [employer] Other 04-20-2021 18:25-0500 Body height 165.1 cm Jaycee Teran Other [employer] Other 04-20-2021 18:25-0500 Body mass index (BMI) [Ratio] 53.91 kg/m2 Jaycee Teran Other [employer] Other 04-20-2021 18:25-0500 Body temperature 97.8 [degF] Jaycee Teran Other [employer] Other 04-20-2021 18:25-0500 Body weight 146.97 kg Jaycee Teran Other [employer] Other 04-20-2021 18:25-0500 Diastolic blood pressure 75 mm[Hg] Jaycee Teran Other [employer] Other 04-20-2021 18:25-0500 Respiratory rate 18 /min Jaycee Teran Other [employer] Other 04-20-2021 18:25-0500 SaO2% (BldA) [Mass fraction] 99 % Jaycee Teran Other [employer] Other 04-20-2021 18:25-0500 Systolic blood pressure 128 mm[Hg] Jaycee Teran Other [employer] Other Encounters Encounter Date Encounter Type Care Provider Facility Start: 12-26-2023 End: 12-26-2023 Orders Only Talia Storey CMA [facility] Comment on above: At increased risk fo r malignant neoplasm of breast (Primary Dx) Start: 12-25-2023 End: 12-25-2023 Orders Only Cary Danieltrick PATHOLOGY SECRETARY/TRANSCRIPTIONIST Work Phone: [facility] Comment on above: Prediabetes (Primary Dx) Start: 12-24-2023 End: 12-24-2023 Refill Cary Huizar PATHOLOGY SECRETARY/TRANSCRIPTIONIST Work Phone: [facility] Comment on above: Gastroesophageal ref lux disease without esophagitis Start: 12-21-2023 End: 12-21-2023 ambulatory CHARITY GUSTAFSON [facility] Start: 12-18-2023 End: 12-18-2023 ambulatory CARY Rahel HUIZAR [facility] Start: 12-17-2023 End: 12-17-2023 Bamboo flowsheet Cary Huizar PATHOLOGY SECRETARY/TRANSCRIPTIONIST Work Phone: [facility] Start: 12-17-2023 End: 12-17-2023 Bamboo flowsheet Cary Huizar PATHOLOGY SECRETARY/TRANSCRIPTIONIST Work Phone: [facility] Start: 12-17-2023 End: 12-17-2023 Office outpatient visit 15 minutes Cary Huizar PATHOLOGY SECRETARY/TRANSCRIPTIONIST Work Phone: [facility] Comment on above: Degenerative disc di sease at L5-S1 level (Primary Dx); Chronic midline low back pain without sciatica; Mild intermittent asthma without complication (CMS/HCC); Severe episode of recurrent major depressive disorder, without psychotic features (HCC) (CMS/HCC); Metabolic syndrome; Class 3 severe obesity due to excess calories without serious comorbidity with body mass index (BMI) of 50.0 to 59.9 in adult (CMS/HCC) Start: 12-17-2023 End: 12-17-2023 ambulatory CARY HUIZAR Not Available Start: 11-26-2023 End: 11-26-2023 Patient encounter procedure [facility] Client Solutions Director [facility] Start: 11-26-2023 End: 11-26-2023 Periodic preventive med est patient 40-64yrs [facility] Client Solutions Director [facility] Comment on above: Well woman exam with routine gynecological exam (Primary Dx); Encounter for screening mammogram for breast cancer; Standardized adult depression screening tool completed; Menorrhagia with regular cycle; Encounter for initial prescription of injectable contraceptive Start: 11-26-2023 End: 11-26-2023 ambulatory [facility] Start: 11-26-2023 Encounter for gynecological examination (general) (routine) without abnormal findings [facility] Start: 06-17-2023 End: 06-17-2023 ambulatory SHAIKH AMIRAH Not Available Start: 06-14-2023 End: 06-14-2023 ambulatory [facility] Start: 06-14-2023 Encounter for genera l adult medical examination without abnormal findings [facility] Start: 04-08-2023 End: 04-08-[address] [place] [address] Start: 02-21-2023 End: 02-21-2023 ambulatory Jaycee Teran Other [employer] Other Start: 02-21-2023 Office outpatient vi sit 25 minutes Jaycee Teran [facility] Start: 02-04-2023 End: 02-04-2023 ambulatory SHAIKH AMIRAH Not Available Start: 02-04-2023 Patient encounter status Tatiana any Huizar PATHOLOGY SECRETARY/TRANSCRIPTIONIST Work Phone: [facility] Start: 11-07-2021 End: 11-08-2021 ambulatory SHAIKH Rashawn FARNSWORTH Facility: Start: 07-27-2021 End: 07-27-2021 ambulatory Mariaelena Peres Other [employer] Other Start: 07-27-2021 Office outpatient vi sit 15 minutes Mariaelena Peres [facility] Start: 06-18-2021 End: 06-18-2021 ambulatory Jaycee Teran Other [employer] Other Start: 06-18-2021 Office outpatient vi sit 15 minutes Jaycee Teran [facility] Start: 04-28-2021 End: 04-29-[address] BRANDIN VUONG Facility:[facility] Start: 04-20-2021 End: 04-20-2021 ambulatory Jaycee Teran Other [employer] Other Start: 04-20-2021 Office outpatient vi sit 15 minutes Jaycee Teran [facility] Start: 04-14-2021 End: 04-15-[address] BRANDIN VUONG Facility:[facility] Procedures Date Procedure Procedure Detail Performing Clinician Start: 12-23-2023 Mammography Cary ferrotrickirby PATHOLOGY SECRETARY/TRANSCRIPTIONIST Work Phone: Start: 12-21-2023 Mammography Talia Car roll CNC ROUTER OPERATOR Start: 11-26-2023 Urine test visual color cmprsn meths Charity M Krotzer QUALITY CONTROL MICROBIOLOGY SUPERVISOR-PREP ROOM SUPERVISOR Work Phone: Start: 11-26-2023 Adult depression screening assessment [facility] Client Solutions Director Start: 08-27-2022 Microscopic observat ion [Identifier] in Cervix by Cyto stain [facility] Client [facility] Director Start: 08-18-2022 Microscopic observat ion [Identifier] in Cervix by Cyto stain Cary Huizar PATHOLOGY SECRETARY/TRANSCRIPTIONIST Work Phone: Plan of Treatment Date Care Activity Detail Author Start: 08-28-2027 Screening for malign ant neoplasm of cervix [facility] Start: 08-27-2025 Screening for malign ant neoplasm of cervix Pap Smear [facility] Start: 08-18-2025 Screening for malign ant neoplasm of cervix Pap Smear [facility] Start: 12-22-2024 Screening for malign ant neoplasm of breast Mammogram [facility] Start: 12-20-2024 Adult BMI Screening Adult BMI Screen ing [facility] Start: 12-20-2024 Screening for malign ant neoplasm of breast Mammogram [facility] Start: 11-25-2024 Adult BMI Follow Up Plan Adult BMI Follow Up Plan [facility] Start: 11-25-2024 Adult BMI Screening Adult BMI Screen ing [facility] Start: 11-25-2024 Depression Screening Depression Scre ening [facility] Start: 11-25-2024 Tobacco Screening Tobacco Screening [facility] Start: 02-25-2024 End: 02-25-2024 ambulatory 02/25/2024 8:15 AM EST Nurse Injection [facility] [address] [place] [address] [facility] Start: 01-22-2024 End: 01-22-2024 Patient encounter procedure 01/22/2024 8:30 AM EST Office Visit [facility] [address] [place] [address] Cary Huizar, ADRIENNE [address] [place] [id number] [facility] Start: 12-26-2023 End: 12-25-2024 MR Breast - bilateral WO and W contrast IV MR bilateral breast with and without contrast with CAD Imaging Routine At increased risk for malignant neoplasm of breast Expected: 12/26/2023, Expires: 12/25/2024 [facility] Work Phone: Comment on above: Expected: 12/26/2023 , Expires: 12/25/2024 Start: 12-21-2023 End: 12-21-2023 Patient encounter procedure 12/21/2023 9:30 AM EDT Appointment [facility] - Mammography/DEXA Imaging [address] [place] [address] [facility] - Mammography/DEXA Imaging Start: 12-17-2023 End: 12-16-2024 Hemoglobin A1c/Hemoglobin.total in Blood Hemoglobin A1c Lab Routine Metabolic syndrome Expected: 12/17/2023 (Approximate), Expires: 12/16/2024 [facility] Comment on above: Expected: 12/17/2023 (Approximate), Expires: 12/16/2024 Start: 12-17-2023 End: 12-16-2024 XR Lumbar spine 4 Views XR LUMBAR SPINE AP/LAT/FLEX/EXT/OBLIQUE S Imaging Routine Degenerative disc disease at L5-S1 level Expected: 12/17/2023, Expires: 12/16/2024 [facility] Work Phone: Comment on above: Expected: 12/17/2023 , Expires: 12/16/2024 Start: 12-17-2023 End: 12-17-2023 Patient encounter procedure 12/17/2023 10:00 AM EDT Office Visit [facility] [address] [place] [address] Cary Huizar, ADRIENNE [address] [place] [address] Arrived [facility] Comment on above: Arrived Start: 11-26-2023 End: 11-25-2024 DBT Breast - bilateral screening Mammography screening bilateral with CAD Imaging Routine Encounter for screening mammogram for breast cancer Expected: 11/26/2023, Expires: 11/25/2024 [facility] Work Phone: Comment on above: Expected: 11/26/2023 , Expires: 11/25/2024 Start: 10-20-2023 Influenza vaccination [facility] Start: 2023 Screening for malign ant neoplasm of breast Mammogram [facility] Start: 09-17-2002 DTaP,Tdap and Td Vaccines (1 - Tdap) DTaP,Tdap and Td Vaccines (1 - Tdap) [facility] Immunizations Immunization Date Immunization Notes Care Provider Fa cility 12-13-2022 influenza virus vacc ine, unspecified formulation [facility] Client Solutions Director [facility] Payers Date Payer Category Payer Private Health Insurance [id number] 2023 Unknown [id number] 2023 Unknown [id number] 2022 Medicaid [id number] 2022 Unknown [id number] 2.1 [id number] 1983 Unknown [id number] 2.16.84 [id number] 1983 Unknown [id number] 2.16.84 [id number] 1983 Unknown [id number] 2.16.84 [id number] 1983 Unknown [id number] 2.16.84 [id number] 1983 Unknown [id number] 2.16.8 [id number] 1983 Unknown [id number] 2.16.8 [id number] 1983 Unknown [id number] 2.16.84 [id number] 1983 Unknown [id number] 2.16.84 [id number] 1983 Unknown [id number] 2.16.840 .[id number] 1983 Unknown [id number] 2.16.8 [id number] 1983 Unknown [id number] 2.16.8 [id number] 1983 Unknown [id number] 2.16.8 [id number] 1983 Unknown [id number] 2.16.8 [id number] 1959 Private Health Insurance [id number] 1959 Private Health Insurance [id number] 1959 Unknown [id number] 2.1 [id number] Social History Date Type Detail Facility Unknown if ever smoked [facility] Other Start: 01-15-2023 End: 11-26-2023 Sex Assigned At [facility] Start: 08-27-2022 End: 06-17-2023 Tobacco smoking status NHIS Never smoked tobacco [facility] Start: 08-27-2022 End: 06-17-2023 Tobacco use and exposure Smokeless tobacco non-user [facility] Start: 11-26-2023 End: 12-21-2023 Alcoholic beverage intake Ex-drinker (finding) [facility] Start: 01-15-2023 End: 11-26-2023 History of Social function [facility] Adolescent depressio n screening assessment 12 [facility] Start: 08-27-2022 Alcohol Comment social [facility] Start: 1985 Sex assigned at Female [facility] Start: 08-16-2022 Gender identity Identifies as female gender (finding) [facility] Start: 08-16-2022 Sexual orientation Heterosexua l (finding) [facility] Start: 06-17-2023 End: 12-17-2023 Alcoholic beverage intake Lifetime non-drinker (finding) [facility] Within the last year , have you been afraid of your partner or ex-partner? No [facility] Do you belong to any clubs or organizations such as confucianist groups, unions, fraternal or athletic groups, or school groups? Yes [facility] Are you now , , , , never or living with a partner? [facility] How often to you hav e a drink containing alcohol? Monthly or less [facility] How many standard drinks containing alcohol do you have on a typical day? 1 or 2 [facility] How often do you hav e 6 or more drinks on 1 occasion? Never [facility] How hard is it for y ou to pay for the very basics like food, housing, medical care, and heating Not very hard [facility] Do you feel stress - tense, restless, nervous, or anxious, or unable to sleep at night because your mind is troubled all the time - these days [OSQ] Only a little [facility] (I/We) worried wheharris er (my/our) food would run out before (I/we) got money to buy more. Sometimes true [facility] Start: 1985 Sex assigned at Not on file [facility] Start: 01-23-2022 Sex Female (finding) [facility] NEGATED: Highlighted rowStart: JONF History of tobacco use Passive smoker [facility] Clinical Notes 04-14-2021 to 12-17-2023 Cary Huizar, ADRIENNE - 12/17/2023 10:27 AM Sourav Huizar, ADRIENNE - 12/17/2023 10:17 AM Sourav Huizar, ADRIENNE - 12/17/2023 10:15 AM Sourav Huizar, ADRIENNE - 12/17/2023 10:13 AM EDT Note Date & Type Note Facility 12-17-2023 History of Present illness Narrative Associated Problem(s): Metabolic syndrome Would like to try wegovy for weight loss. Will order today. Pt has no hx of thyroid cancer or pancreatitis. Discussed potential risks associated and side effects. Pt verbalizes understanding. Discussed with patient their BMI (actual, verses recommended). We have also discussed lifestyle modifications: attempts to perform physical activity as chronic conditions allow, also to monitor dietary intake: increasing protein/fruits/veggies and lowering carb intake (unless contraindicated). Limit sodas, juices, and sugary drinks. Also discussed oral medications that can be utilized for weight loss, as well as surgical options for weight loss. Associated Problem(s): Chronic midline low back pain without sciatica States she was diagnosed with DDD several years ago with previous PCP. States she had imaging done 6 years ago. Recently was seen in ER for back pain flare up. Was prescribed steroids and muscle relaxants. States it took 2 weeks to feel relief. Requests PM referral. Imaging ordered today. Referral sent to PM. Associated Problem(s): MDD (major depressive disorder) (CMS/HCC) Currently taking 150mg Wellbutrin. Feels symptoms are well controlled. Is having current increased lie stressors at this time, but is attending therapy for coping mechanisms. Would like to continue at current medication dose at this time. Denies SI/HI. Associated Problem(s): Mild intermittent asthma without complication ([facility]) PFT's done in 2021- . Reports using rescue inhaler 1-2 times per year. Feels symptoms are very well controlled. Images from the original note were not included. Subjective Patient ID: Juan Ramon Monk is a 38 y.o. female who presents for Asthma (de) and Depression. Obesity: Would like to try wegovy for weight loss. Will order today. Pt has no hx of thyroid cancer or pancreatitis. Discussed potential risks associated and side effects. Pt verbalizes understanding. Review of Systems Constitutional: Negative for activity change, appetite change, chills, diaphoresis, fatigue, fever and unexpected weight change. HENT: Negative for congestion, ear pain, rhinorrhea, sinus pressure, sinus pain, sneezing, sore throat, trouble swallowing and voice change. Eyes: Negative for visual disturbance. Respiratory: Negative for cough, chest tightness, shortness of breath and wheezing. Cardiovascular: Negative for chest pain, palpitations and leg swelling. Gastrointestinal: Negative for abdominal distention, abdominal pain, blood in stool, constipation, diarrhea and vomiting. Genitourinary: Negative for decreased urine volume, dysuria, flank pain, frequency, hematuria and urgency. Musculoskeletal: Positive for back pain. Negative for arthralgias, gait problem, joint swelling and myalgias. Skin: Negative for rash. Neurological: Negative for dizziness, tremors, syncope, weakness, light-headedness and headaches. Psychiatric/Behavioral: Positive for depression. Negative for decreased concentration and suicidal ideas. The patient is not nervous/anxious. Hematological: Does not bruise/bleed easily. Endocrine: Negative for cold intolerance, heat intolerance, polydipsia, polyphagia and polyuria. Objective Physical Exam Vitals reviewed. Constitutional: Appearance: Normal appearance. She is obese. HENT: Head: Normocephalic and atraumatic. Right Ear: Tympanic membrane normal. Left Ear: Tympanic membrane normal. Nose: Nose normal. Mouth/Throat: Mouth: Mucous membranes are moist. Pharynx: Oropharynx is clear. Eyes: Pupils: Pupils are equal, round, and reactive to light. Cardiovascular: Rate and Rhythm: Normal rate and regular rhythm. Pulses: Normal pulses. Heart sounds: Normal heart sounds. Pulmonary: Effort: Pulmonary effort is normal. Breath sounds: Normal breath sounds. Abdominal: General: Abdomen is flat. Bowel sounds are normal. Palpations: Abdomen is soft. Musculoskeletal: General: Normal range of motion. Cervical back: Normal range of motion. Skin: General: Skin is warm and dry. Capillary Refill: Capillary refill takes less than 2 seconds. Neurological: General: No focal deficit present. Mental Status: She is alert and oriented to person, place, and time. Psychiatric: Mood and Affect: Mood normal. Behavior: Behavior normal. Assessment/Plan Problem List Items Addressed This Visit Obesity, unspecified Relevant Medications Semaglutide-Weight Management (Wegovy) 0.25 MG/0.5ML solution auto-injector Metabolic syndrome Would like to try wegovy for weight loss. Will order today. Pt has no hx of thyroid cancer or pancreatitis. Discussed potential risks associated and side effects. Pt verbalizes understanding. Discussed with patient their BMI (actual, verses recommended). We have also discussed lifestyle modifications: attempts to perform physical activity as chronic conditions allow, also to monitor dietary intake: increasing protein/fruits/veggies and lowering carb intake (unless contraindicated). Limit sodas, juices, and sugary drinks. Also discussed oral medications that can be utilized for weight loss, as well as surgical options for weight loss. Relevant Medications Semaglutide-Weight Management (Wegovy) 0.25 MG/0.5ML solution auto-injector Other Relevant Orders Hemoglobin A1c MDD (major depressive disorder) ([facility]) Currently taking 150mg Wellbutrin. Feels symptoms are well controlled. Is having current increased lie stressors at this time, but is attending therapy for coping mechanisms. Would like to continue at current medication dose at this time. Denies SI/HI. Relevant Medications Semaglutide-Weight Management (Wegovy) 0.25 MG/0.5ML solution auto-injector Mild intermittent asthma without complication (CMS/HCC) PFT's done in 2021- . Reports using rescue inhaler 1-2 times per year. Feels symptoms are very well controlled. Relevant Medications albuterol HFA 90 mcg/act inhaler Chronic midline low back pain without sciatica States she was diagnosed with DDD several years ago with previous PCP. States she had imaging done 6 years ago. Recently was seen in ER for back pain flare up. Was prescribed steroids and muscle relaxants. States it took 2 weeks to feel relief. Requests PM referral. Imaging ordered today. Referral sent to PM. Degenerative disc disease at L5-S1 level - Primary Relevant Orders Ambulatory referral to Pain Medicine XR LUMBAR SPINE AP/LAT/FLEX/EXT/OBLIQUES documented in this encounter [facility] 12-17-2023 Instructions Cary Huizar NP - 12/17/2023 10:00 AM EDT Have A1C completed. Start Wegovy injection once weekly. Call if you need anything! documented in this encounter [facility] 11-26-2023 History of Present illness Narrative Annual Well Woman Visit 11/26/2023 Braxton Monk is a pleasant 38 y.o. female who presents for annual tax services specialist exam. Periods are regular every 28-30 days, lasting 7 days. Dysmenorrhea: none. Cyclic symptoms include heavy bleeding . Denies abnormal discharge. Occasionally has two periods per month. Denies pelvic pain. Patient declines STD testing today. Complaints today: none Relationship status: in a relationship The patient reports that there is not domestic violence in her life. 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 Non-smoker Children YES How many One vaginal delivery Current contraception: none History of abnormal Pap smear: yes - several years ago Last pap: 7-2023-neg Regular self breast exam: no Last mammogram: never Family history of breast cancer: yes - m grandma Family history of uterine or ovarian cancer: no Family history of pancreatic or prostate cancer: no Family history of colon cancer: yes - mother HPV vaccinated: unsure PHQ9 depression screenin LMP 11/13/2023 OB History 1 Para 1 Term 1 AB Living 1 SAB IAB Ectopic Multiple Live Births 1 The following portions of the patient's history were reviewed and updated as appropriate: allergies, current medications, past family history, past medical history, past social history, past surgical history and problem list. MEDICAL HX Past Medical History: Diagnosis Date Abnormal Pap smear of cervix Degenerative disc disease, lumbar Polycystic ovary syndrome SURGICAL HX Past Surgical History: Procedure Laterality Date ANKLE SURGERY Right Medial 01/2009 RHINOPLASTY 2012 Nose was broken FAMILY HX Family History Problem Relation Age of Onset Heart disease Paternal Grandfather Breast cancer Maternal Grandmother Stroke Maternal Grandfather Arthritis Father Diabetes Mother Colon cancer Mother Uterine cancer Mother Asthma Sister MEDS Current Outpatient Medications Medication Sig Dispense Refill albuterol (PROVENTIL HFA;VENTOLIN HFA) 90 mcg/actuation inhaler Inhale 2 puffs every 6 (six) hours as needed for wheezing Indications: asthma attack. buPROPion XL (WELLBUTRIN XL) 150 mg 24 hr tablet Take 1 tablet (150 mg total) by mouth every morning. ferrous sulfate 325 (65 FE) mg tablet Take 1 tablet (325 mg total) by mouth daily with breakfast. montelukast (SINGULAIR) 10 mg tablet Take 1 tablet (10 mg total) by mouth nightly Indications: controller medication for asthma. omeprazole (PriLOSEC) 20 mg capsule Take 1 capsule (20 mg total) by mouth in the morning. Indications: gastroesophageal reflux disease. No current facility-administered medications for this visit. ALLERGIES Allergies Allergen Reactions Amoxicillin Review of Systems Constitutional: Negative. Respiratory: Negative. Negative for chest tightness and shortness of breath. Cardiovascular: Negative. Negative for chest pain and palpitations. Gastrointestinal: Negative. Negative for constipation, diarrhea, nausea and vomiting. Endocrine: Negative. Genitourinary: Positive for menstrual problem. Negative for pelvic pain. Musculoskeletal: Negative. Skin: Negative. Allergic/Immunologic: Negative. Neurological: Negative. Hematological: Negative. Psychiatric/Behavioral: Negative. Objective BP 110/80 Ht 165.1 cm (5' 5 ) Wt (!) 142 kg (313 lb) LMP 11/13/2023 (Approximate) BMI 52.09 kg/m Physical Exam Vitals and nursing note reviewed. Constitutional: Appearance: Normal appearance. HENT: Head: Normocephalic and atraumatic. Cardiovascular: Rate and Rhythm: Normal rate and regular rhythm. Pulses: Normal pulses. Heart sounds: Normal heart sounds. Pulmonary: Effort: Pulmonary effort is normal. Breath sounds: Normal breath sounds. Chest: Breasts: Breasts are symmetrical. Right: Normal. No mass, skin change or tenderness. Left: Normal. No mass, skin change or tenderness. Abdominal: General: Bowel sounds are normal. Palpations: Abdomen is soft. Genitourinary: General: Normal vulva. Labia: Right: No rash or lesion. Left: No rash or lesion. Vagina: Normal. Cervix: Normal. Uterus: Normal. Not enlarged and not tender. Adnexa: Right adnexa normal and left adnexa normal. Right: No mass, tenderness or fullness. Left: No mass, tenderness or fullness. Musculoskeletal: General: Normal range of motion. Cervical back: Normal range of motion and neck supple. Skin: General: Skin is warm and dry. Neurological: Mental Status: She is alert and oriented to person, place, and time. Psychiatric: Mood and Affect: Mood normal. Speech: Speech normal. Behavior: Behavior normal. Thought Content: Thought content normal. Judgment: Judgment normal. Assessment/Plan: Juan Ramon was seen today for gynecologic exam. Diagnoses and all orders for this visit: Well woman exam with routine gynecological exam Encounter for screening mammogram for breast cancer - Mammography screening bilateral with CAD; Future Standardized adult depression screening tool completed Menorrhagia with regular cycle Encounter for initial prescription of injectable contraceptive - POCT , urine - medroxyPROGESTERone (DEPO-PROVERA) injection 150 mg Discussed BC options to help with periods. Patient desires depo provera. BMI is above average; Discussed eating tips for weight loss and and exercise steps. Breast self exam technique reviewed and patient encouraged to perform self-exam monthly. Discussed healthy lifestyle modifications. Educational material distributed. Follow up in 1 year for annual tax services specialist exam. Follow up as needed. Next pap due 2027 per ASCCP guidelines. Discussed taking a multivitamin. Discussed Calcium and Vitamin D for prevention of osteoporosis. Discussed recommendations for HPV vaccine between 9-45 yo. Can be received at [facility] or the [facility]. Discussed need for yearly mammogram after 40 yo. Discussed colon cancer screening recommendations to begin at 45 yo, patient to discuss with PCP. All questions answered. YUVAL Argueta APRN-CNP Lisa M Krotzer, APRN-CNP 11/26/23 1058 documented in this encounter [facility] [employer] [facility] 02-21-2023 Evaluation note Encounter Date Diagnosis Assessment Notes Feb, Sore throat (ICD-10 - J02.9) Feb, Strep pharyngitis (ICD-10 - J02.0) Advised patient that strep test was negative but will treat for strep today based on physical exam. Will treat with antibiotic and steroid, reviewed allergies and recent antibiotic use. Instructed parent to give antibiotic as prescribed, with food, complete entire course even if feeling better. Supportive care as directed. Push fluids and rest, Tylenol or Motrin as needed for fever or discomfort. Patient's symptoms should improve in the next 24-48 hours, eval by PCP or UC if symptoms have not improved with treatment. Discussed in depth warning symptoms that require immediate eval. Change out tooth brush after being on antibiotic for 2-3 days. Patient verbalizes understanding and is agreeable to treatment plan. Feb, Contact with and (suspected) exposure to covid-19 (ICD-10 - Z20.822) Advised patient that COVID/influenza A/B/RSV PCR test was negative today in office. Follow above treatment plan recommendations. [employer] Other 06-09-2022 Evaluation note* Encounter Date Diagnosis Assessment Notes Treatment Notes Treatment Clinical Notes Jul, Sore throat (ICD-10 - J02.9) Jul, Bronchitis (ICD-10 - J40) Since this has been an ongoing issue recommend follow up with PCP in 1-2 weeks to discuss asthma related treatment. Take Zyrtec or Lena to help with symptoms [employer] Other 05-01-2022 Evaluation note* Encounter Date Diagnosis Assessment Notes Treatment Notes Treatment Clinical Notes June, Contact with and (suspected) exposure to other viral communicable diseases (ICD-10 - Z20.828) June, Bronchitis (ICD-10 - J40) Advised patient that rapid COVID antigen test and Influenza A/B test was negative today in office. Discussed diagnosis with patient in detail, including differential of Bronchitis vs Acute Asthma Exacerbation. Advised patient that cough may linger for 3 weeks. Advised to take medications as prescribed, reviewed side effects of steroid, take with food and plenty of water, finish entire course. Encouraged supportive care as directed, push fluids and rest, may use Tylenol as needed for fever/discomfort, cool mist humidifier. May use [employer] as needed for cough, do not take any other OTCs while using [employer]. Continue use of Albuterol Inhaler, refill sent. Patient to follow up with PCP in 2-3 days if symptoms do not improve. Immediate eval if SOB, difficulty breathing, chest pain, dizziness, or other concerning symptoms. Patient verbalizes understanding and is agreeable to treatment plan June, Other Additional time spent conducting pre-visit phone call, screening for symptoms, instructions on social distancing, application and removal of PPE, and cleaning of examination room, equipment and supplies was preformed. Patient education given for testing methodology and results. Patient care instructions given in writting by [facility] document [employer] Other 03-03-2022 Evaluation note* Encounter Date Diagnosis Assessment Notes Treatment Notes Treatment Clinical Notes Apr, Strain of left knee, initial encounter (ICD-10 - S86.912A) XR images and final report reviewed, no acute bony abnormalities. Toradol/Kenalog injection given in office. Encouraged RICE therapy discussed- rest extremity, avoid excessive or strenuous activity, complete activity as tolerated; ice area for 15-20 minutes at a time multiple times a day, ensure thin cloth barrier between skin and ice; FLOWER wrap area; keep extremity elevated. Will send in rx of Medrol dose pack to cover back and knee pain. Advised to take as directed, take with food and plenty of water, reviewed side effects of steroid, advised to finish entire course. Advised patient to use OTC Tylenol as directed as needed for discomfort. Use lidocaine patch as directed. Instructed patient to follow up with PCP Saturday. Immediate eval by ER for warning s/sx as discussed. Patient verbalizes understanding and is agreeable to treatment plan Apr, Acute left-sided thoracic back pain (ICD-10 - M54.6) See above treatment plan Apr, Fall, initial encounter (ICD-10 - W19.XXXA) Apr, Other Knee pain home care material was printed [employer] Other 02-25-2022 NotePROCEDURE: XR ANKLE RT MIN 3 VIEWS COMPARISON: None. HISTORY: Ankle pain FINDINGS: BONES:Remote healed distal fibular diaphyseal fracture. Remote fixation of the distal fibula with 2 screws through the medial malleolus and 2 screws through the anterior tibia. Focal area of sclerosis measuring 2.8 cm along the lateral margin of the distal tibial diaphysis possibly related to remote injury. No endosteal scalloping with a narrow zone of transition. No acute fracture or dislocation. SOFT TISSUES:Negative. No visible soft tissue swelling. EFFUSION:None visible. OTHER: Negative. IMPRESSION: Posttraumatic changes with internal fixation hardware Focal sclerosis of the distal tibial diaphysis possibly related to remote trauma Electronically authenticated by: VALENTINA OMER Date: 2021-04-14 16:07[facility] Diagnosis Well woman exam with routine gynecological exam- Primary Routine gynecological examination Encounter for screening mammogram for breast cancer Standardized adult depression screening tool completed Menorrhagia with regular cycle Encounter for initial prescription of injectable contraceptive [facility] Diagnosis Mild intermittent asthma without complication (CMS/HCC)- Primary Severe episode of recurrent major depressive disorder, without psychotic features (HCC) (CMS/HCC) Metabolic syndrome Dysmetabolic Syndrome X Wellness examination Rash Rash and other nonspecific skin eruption Tinea corporis Dermatophytosis of the body Gastroesophageal reflux disease without esophagitis- Primary Esophageal reflux Severe episode of recurrent major depressive disorder, without psychotic features (HCC) (CMS/HCC) Chronic allergic rhinitis Chronic midline low back pain without sciatica Degenerative disc disease at L5-S1 level- Primary Chronic midline low back pain without sciatica Mild intermittent asthma without complication (CMS/HCC) Severe episode of recurrent major depressive disorder, without psychotic features (HCC) (CMS/HCC) Metabolic syndrome Dysmetabolic Syndrome X Class 3 severe obesity due to excess calories without serious comorbidity with body mass index (BMI) of 50.0 to 59.9 in adult (CMS/HCC) documented in this encounter [facility] HealthcareEvaluation [facility]* Diagnosis Mild intermittent asthma without complication (CMS/HCC)- Primary Severe episode of recurrent major depressive disorder, without psychotic features (HCC) (CMS/HCC) Metabolic syndrome Dysmetabolic Syndrome X Wellness examination Rash Rash and other nonspecific skin eruption Tinea corporis Dermatophytosis of the body Gastroesophageal reflux disease without esophagitis- Primary Esophageal reflux Severe episode of recurrent major depressive disorder, without psychotic features (HCC) (CMS/HCC) Chronic allergic rhinitis Chronic midline low back pain without sciatica Degenerative disc disease at L5-S1 level- Primary Chronic midline low back pain without sciatica Mild intermittent asthma without complication (CMS/HCC) Severe episode of recurrent major depressive disorder, without psychotic features (HCC) (CMS/HCC) Metabolic syndrome Dysmetabolic Syndrome X Class 3 severe obesity due to excess calories without serious comorbidity with body mass index (BMI) of 50.0 to 59.9 in adult ([facility]/HCC) Gastroesophageal reflux disease without esophagitis Esophageal reflux documented in this encounter [facility] HealthcareEvaluation note* Diagnosis Mild intermittent asthma without complication (CMS/HCC)- Primary Severe episode of recurrent major depressive disorder, without psychotic features (HCC) (CMS/HCC) Metabolic syndrome Dysmetabolic Syndrome X Wellness examination Rash Rash and other nonspecific skin eruption Tinea corporis Dermatophytosis of the body Gastroesophageal reflux disease without esophagitis- Primary Esophageal reflux Severe episode of recurrent major depressive disorder, without psychotic features (HCC) (CMS/HCC) Chronic allergic rhinitis Chronic midline low back pain without sciatica Degenerative disc disease at L5-S1 level- Primary Chronic midline low back pain without sciatica Mild intermittent asthma without complication (CMS/HCC) Severe episode of recurrent major depressive disorder, without psychotic features (HCC) (CMS/HCC) Metabolic syndrome Dysmetabolic Syndrome X Class 3 severe obesity due to excess calories without serious comorbidity with body mass index (BMI) of 50.0 to 59.9 in adult ([facility]/HCC) Prediabetes- Primary Other abnormal glucose documented in this encounter [facility] HealthcareEvaluation note* Diagnosis At increased risk for malignant neoplasm of breast- Primary documented in this encounter [facility] N[facility] - Reported* Type Description Date Medical History asthma Medical History Esophageal reflux Surgical History fracture repair Surgical History rhinoplasty Surgical History deviated septum repair Hospitalization History see above Hospitalization History child [employer] [facility] [employer] Other History general Narrative - Reported* Type Description Date Medical History asthma Medical History Esophageal reflux Medical History Depression Surgical History fracture repair Surgical History rhinoplasty Surgical History deviated septum repair Hospitalization History see above Hospitalization History child [employer] Other Instructions* Attachments The following attachments cannot be sent through Care Everywhere. * Health Risks of a High BMI ([place]) * Heavy periods ([place]) [facility] SystemInstructionsNot on file documented in this encounterProMedioh Health System Summary Purpose Family History No Family History Records FoundNo Family History Records FoundNo Family History Records FoundNo Family History Records FoundNo Family History Records FoundNo Family History Records FoundNo Family History Records Found Advance Directives No Advanced Directives Records FoundNo Advanced Directives Records FoundNo Advanced Directives Records FoundNo Advanced Directives Records FoundNo Advanced Directives Records FoundNo Advanced Directives Records FoundNo Advanced Directives Records Found Additional Source Comments INFORMATION SOURCE (unrecogn ized section and content) DATE CREATED AUTHOR 05/01/2021 [facility] DATE CREATED AUTHOR AUTHOR'S ORGANIZ ATION 09/28/2021 [facility] DATE CREATED AUTHOR AUTHOR'S ORGANIZ ATION 04/12/2022 [facility] DATE CREATED AUTHOR AUTHOR'S ORGANIZ ATION 06/16/2023 [facility] DATE CREATED AUTHOR AUTHOR'S ORGANIZ ATION 11/27/2023 [facility] DATE CREATED AUTHOR AUTHOR'S ORGANIZ ATION 12/18/2023 [facility] DATE CREATED AUTHOR AUTHOR'S ORGANIZ ATION 12/24/2023 [facility] REASON FOR VISIT (unrecogniz ed section and content) Reason Comments Gynecologic Exam Pt is here for kirsten l exam. Reason Comments Asthma de Depression Reason Comments Med Refill Care Teams (unrecognized sec tion and content) Map Drafter Relationship Specialty Start Date End Date Shaikh Farnsworth MD PCP - General Internal Medicine 08/28/22 Map Drafter Relationship Specialty Start Date End Date House, Brandin P, MD [address] [facility] [facility] [address] [place] [address] PCP - External PCP Family Medicine 12/26/22 Wallace Arora MD [address] [place] [phone] PCP - General Family Medicine 10/02/23 Charity Vanessa NP [address] [place] [phone] Nurse Practitioner Family Medicine 12/19/22 Cary Huizar NP [address] [place] [phone] Nurse Practitioner Family Medicine 10/02/23 Map Drafter Relationship Specialty Start Date End Date Brandin Vuong MD [address] [facility] [address] [facility] [place] [address] PCP - External PCP Family Medicine 12/26/22 Wallace Arora MD [address] [place] [phone] PCP - General Family Medicine 10/02/23 Charity Vanessa NP [address] [place] [phone] Nurse Practitioner Family Medicine 12/19/22 Cary Huizar NP [address] [place] [phone] Nurse Practitioner Family Medicine 10/02/23 Map Drafter Relationship Specialty Start Date End Date Brandin Vuong MD [address] [place] [address] PCP - External PCP Family Medicine 12/26/22 Wallace Arora MD [address] [place] [phone] PCP - General Family Medicine 10/02/23 Charity Vanessa NP [address] [place] [phone] Nurse Practitioner Family Medicine 12/19/22 Cary Huizar NP [address] [place] [phone] Nurse Practitioner Family Medicine 10/02/23 Map Drafter Relationship Specialty Start Date End Date Brandin Vuong MD [address] [place] [address] PCP - External PCP Family Medicine 12/26/22 Wallace Arora MD [address] [place] [phone] PCP - General Family Medicine 10/02/23 Charity Vanessa NP [address] [place] [phone] Nurse Practitioner Family Medicine 12/19/22 Cary Huizar NP [address] [place] [phone] Nurse Practitioner Family Medicine 10/02/23 Map Drafter Relationship Specialty Start Date End Date Shaikh Farnsworth MD PCP - General Internal Medicine 08/28/22 FOR RECORDS PERTAINING TO PATIENTS WHO ARE OR HAVE BEEN ENROLLED IN A CHEMICAL DEPENDENCY/SUBSTANCEABUSE PROGRAM, SOME INFORMATION MAY BE OMITTED. This clinical summary was aggregated from multiple sources. Caution should be exercised in using it in the provision of clinical care. This summary normalizes information from multiple sources, and as a consequence, information in this document may materially change the coding, format and clinical context of patient data. In addition, data may be omitted in some cases. CLINICAL DECISIONS SHOULD BE BASED ON THE PRIMARY CLINICAL RECORDS. [employer] [facility]. provides no warranty or guarantee of the accuracy or completeness of information in this document.
--- NOTE | 2024-01-02 08:04 | P.CN_ITS ---
Consult Note: HPI Data of Consult Patient: new to practice Requesting Physician: Melina Hay NP Primary Care Provider: LATONIA GRIFFIN Consult Narrative Reason for consult: establish care low back pain Narrative: Ndea Monk a pleasant 38 year old female presents for evaluation and management of chronic low back pain. recent lumbar xray reveals L5-S1 DDD and mild lumbar spondylosis. Pain today 0/10, intermittent moderate to severe pain and flare ups occurring at least twice a month lasting 1-2 weeks. when pain is moderate to severe all activity increases her pain, nothing provides her relief. no hx of trauma/injury. denies numbness, tingling, weakness of BLE. Has failed tylenol, motrin, diclofenac, prednisone, robaxin, and tizanidine. Failed heat/ice. Failed to benefit from PT in the past, has a provider guided HEP at home that she has completed 2x/week for greater than 6 weeks without improvement. cc:: CC: Melina Hay NP Review of Systems ROS Status of ROS 10 or more systems reviewed and unremark able except as noted in history and below Musculoskeletal Reports: back pain PFSH PFSH Social History Little interest or pleasure in doing things: not at all Feeling down, depressed, or hopeless: not at all Meds Home Medications and Allergies Home Medications ?Medication ?Instructions ?Recorded ?Confirmed ?Type prednisone 10 mg tablet See Rx Instructions .Route 11/28/23 Rx .COMPLEX #30 tabs tizanidine 4 mg capsule (Zanaflex) 4 mg PO Q8H PRN muscle spasticity 11/28/23 Rx #12 caps Allergies Allergy/AdvReac Type Severity Reaction Status Date / Time amoxicillin Allergy Severe Rash Verified 11/28/23 18:30 Exam Back & Pelvis Lumbar spine/lower back: ROM limited, pain with ROM, lumbar spinal tenderness, p araspinal muscle tenderness and straight leg raise negative bilaterally; no paraspinal muscle spasm Sacroiliac joints: SI joint(s) abnormal Other: pain over bilateral PSIS negative radiculopathy, sensation intact BLE, strength 5/5 in BLE Extremity Common normals: normal to inspection and full ROM Assessment and Plan Assessment and Plan (1) Lumbar degenerative disc disease: (2) Lumbar spondylosis: (3) Chronic bilateral low back pain: (4) Myalgia: Plan update lumbar MRI without contrast to assess lumbar DDD, spondylosis, and chronic bilateral low back pain without sciatica unresponsive to above listed therapies DC OTC nsaids, start mobic 15mg daily PRN pain. risks vs benefits reviewed, to be taken with food start baclofen 10mg TID PRN pain/spasms continue HEP as tolerated weight loss encouraged f/u to review lumbar MRI
== END 2024-01-02 07:42 | disposition home or self-care (01) ==
PROVIDERS: Visit Provider Nurse Practitioner
DX: M51.369 Other intervertebral disc degeneration, lumbar region without mention of lumbar back pain or lower extremity pain (principal); M47.816 Spondylosis without myelopathy or radiculopathy, lumbar region; M54.50 Low back pain, unspecified; M79.18 Myalgia, other site
CPT/HCPCS: G0463

== ENCOUNTER 2024-02-17 06:51 | Outpatient (OUT) | payer OTHER, SELFPAY ==
--- OUTSIDE RECORDS SUMMARY | 2024-02-17 06:54 | XMS_ITS | CCD ---
Author Organization [facility] Care Team Providers Care Industrial Engineering Name Role Phone Jaycee Teran Unavailable Mariaelena Peres Unavailable CAROLANN, DR SÁNCHEZ Admitting Unavailable [place], DR SÁNCHEZ Attending Unavailable [place], DR SÁNCHEZ Primary Care Unavailable INOLA, DR VALENTINA Velasquez Consulting Unavailable [place], DR SÁNCHEZ Consulting Unavailable [place], DR SÁNCHEZ Admitting Unavailable [place], DR SÁNCHEZ Attending Unavailable [place], DR SÁNCHEZ Primary Care Unavailable [place], DR SÁNCHEZ Consulting Unavailable Ronen Mendez Consulting [...] Unavailable FAWWAD, LUCIANO Primary Care Unavailable Alisond , Primary Care Provider Rasheeda SCIENTIFIC HELPER, Charity Unavailable Carolann DAUGHERTY, Brandin P Unavailable [phone] Maite DAUGHERTY, Wallace Primary Care Provider Bhupendra DELEON, Cary Unavailable CARY HUIZAR Referring Unavaila ble FAWWAD, LUCIANO Primary Care Unavailable CARY HUIZAR Referring Unavaila ble FAWWAD, LUCIANO Primary Care Unavailable HEALTH, 360 Referring Unavailable FAWWAD, LUCIANO Primary Care Unavailable CHARITY GUSTAFSON Referring Unavailable SHAIKH FARNSWORTH Primary Care Unavailable SHAIKH FARNSWORTH Attending Unavailable CARY HUIZAR Attending SHAIKH Caputo Attending Unavailable CARY HUIZAR Attending Momo dinero Allergies Allergy Classification Reported Allergen(s) Allergy Type Date of Onset Reaction(s) Facility (19 sources) Amoxicillin; Translations: [Amoxicillin] Drug Allergy 05-05-2013 as a child [facility] Repository (1 source) Latex Drug allergy (disorder) 08-12-2013 [facility] Rep[facility] Medications Current Medications Medication Drug Class(es) Dates Sig (Normalized) Sig (Original) [id number] 200 actuat albuterol 0.09 mg/actuat metered dose inhaler (20 sources) beta2-Adrenergic Agonist Start: 12-17-2023 End: 12-17-2023 [...] hydrochloride 150 mg extended release oral tablet (13 sources) Aminoketone Start: 02-03-2024 take 1 tablet by mouth once daily buPROPion XL (Wellbutrin XL) 150 MG 24 hr tablet Indications: Severe episode of recurrent major depressive disorder, without psychotic features (HCC) (CMS/HCC) TAKE 1 TABLET BY MOUTH EVERYDAY *DO NOT CRUSH/CHEW/SPLIT* 90 tablet 1 02/03/2024 Active Start: 06-17-2023 End: 02-03-2024 take 1 tablet by mouth once daily buPROPion XL (Wellbutrin XL) 150 MG 24 hr tablet Indications: Severe episode of recurrent major depressive disorder, without psychotic features (HCC) (CMS/HCC) Take 1 tablet (150 mg) by mouth Daily Do not crush, chew, or split. 90 tablet 1 06/17/2023 02/03/2024 Discontinued cephalexin 500 mg oral capsule (1 source) Cephalosporin Antibacterial Start: 02-21-2023 take 1 capsule by mouth every twelve hours Cephalexin 500 MG 1 capsule Orally twice a day for 10 Feb, Active Estradiol (8 sources) Estrogen Start: 11-25-2023 Estradiol Cypionate (DEPO-ESTRADIOL IM) 11/25/2023 Active ferrous sulfate 325 mg oral tablet (10 sources) take 1 tablet by mouth at mealtime ferrous sulfate 325 (65 Fe) MG tablet Take 325 mg by mouth in the morning. Take with meals. Active Lidocaine (1 source) Antiarrhythmic, Amide Local Anesthetic Start: 04-20-2021 Lidocaine 5 % 1 patch remove after 12 hours Externally Once a day for 7 days Apr, Active 24 hr metFORMIN hydrochloride 500 mg extended release oral tablet (5 sources) Biguanide Start: 12-25-2023 End: 12-24-2024 take 1 tablet by mouth every twenty-four hours at mealtime metFORMIN XR (Glucophage-XR) 500 MG 24 hr tablet Indications: Prediabetes Take 1 tablet (500 mg) by mouth in the evening. Take with meals Do not crush, chew, or split. 30 tablet 11 12/25/2023 12/24/2024 Active montelukast 10 mg oral tablet (15 sources) Leukotriene Receptor Antagonist Start: 06-17-2023 take 1 tablet by mouth once daily montelukast (Singulair) 10 MG tablet Indications: Chronic allergic rhinitis Take 1 tablet (10 mg) by mouth Daily 90 tablet 1 06/17/2023 Active Singulair Active omeprazole 20 mg delayed release oral capsule (17 sources) Proton Pump Inhibitor Start: 06-17-2023 End: [...] Semaglutide-Weight Management (Wegovy) 0.25 MG/0.5ML solution auto-injector (8 sources) Start: 12-17-2023 Semaglutide-We ight Management (Wegovy) [...] 12/17/2023 Active tiZANidine 4 mg oral tablet (8 sources) Central alpha-2 Adrenergic Agonist Start: 11-28-2023 take 1 tablet by mouth every eight hours as needed tiZANidine (Zanaflex) 4 MG tablet TAKE 1 TABLET ORALLY EVERY 8 HOURS NEEDED FOR MUSCLE SPASTICITY 11/28/2023 Active Completed/Discontinued Medications Medication Drug Class(es) Dates Sig (Normalized) Sig (Original) dexamethasone 1 mg/ml / neomycin 3.5 mg/ml / polymyxin b [id number] unt/ml ophthalmic suspension (2 sources) Aminoglycoside Antibacterial, Polymyxin-class Antibacterial, Corticosteroid Neomycin-Polymyxi n-Dexameth 3.5-27070-3.1 Ophthalmic for 5 Days Not-Taking/PRN dextromethorphan hydrobromide 1.5 mg/ml / pyrilamine maleate 1.5 mg/ml oral solution (3 sources) Uncompetitive Q-vfesbm-B-aspartat e Receptor Antagonist, Sigma-1 Agonist Start: 06-18-2021 take 10 mL by mouth every eight hours as needed [place] DM 7.5-7.5 MG/5ML 10 mL Orally every [...] Classification Problem Date Documented Date Episodic/Chronic Asthma (20 sources) Severe persistent asthma, uncomplicated; Translations: [Mild intermittent asthma] Onset: 11-07-2021 Chronic Contraceptive and procreative management (2 sources) Encounter for initial prescription of injectable contraceptive; Translations: [Contraception status] Onset: 11-26-2023 11-26-2023 Episodic Diabetes mellitus with complications (1 source) 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; Translations: [TYPE 2 DM W/HYPEROSMOLARITY W/COMA] Onset: 11-08-2021 Chronic Diabetes mellitus without complication (3 sources) Prediabetes; Translations: [Prediabetes] 12-25-2023 Episodic Esophageal disorders (12 sources) Gastroesophageal reflux disease; Translations: [Gastro-esophageal reflux disease without esophagitis] Onset: 01-21-2023 11-26-2023 Chronic Genitourinary symptoms and ill-defined conditions (11 sources) Female stress incontinence; Translations: [Stress incontinence (female) (male)] Onset: 01-21-2023 11-26-2023 Chronic Joint disorders and dislocations; trauma-related (4 sources) Unspecified internal derangement of left knee; Translations: [UNS INTERNAL DERANGEMENT LEFT KNEE] Onset: 04-28-2021 Chronic Menstrual disorders (2 sources) Excessive and frequent menstruation with regular cycle; Translations: [Menorrhagia] Onset: 11-26-2023 11-26-2023 Chronic Mood disorders (16 sources) Major depressive disorder; Translations: [Major depressive disorder, single episode, unspecified] Onset: 01-21-2023 11-26-2023 Chronic Other nutritional; endocrine; and metabolic disorders (3 sources) Metabolic syndrome; Translations: [METABOLIC SYNDROME] Onset: 11-08-2021 Chronic Other nutritional; endocrine; and metabolic disorders (13 sources) Metabolic syndrome X; Translations: [Metabolic syndrome] Onset: 01-21-2023 11-26-2023 Chronic Other nutritional; endocrine; and metabolic disorders (2 sources) Morbid obesity; Translations: [Morbid (severe) obesity due to excess calories] Onset: 11-26-2023 11-26-2023 Chronic Other nutritional; endocrine; and metabolic disorders (9 sources) Obesity; Translations: [Obesity, unspecified] Onset: 01-21-2023 01-21-2023 Chronic Other nutritional; endocrine; and metabolic disorders (2 sources) Severe obesity; Translations: [Class 3 severe obesity due to excess calories without serious comorbidity with body mass index (BMI) of 50.0 to 59.9 in adult ([facility])] 12-17-2023 Chronic Other screening for suspected [...] Spondylosis; intervertebral disc disorders; other back problems (14 sources) Degeneration of lumbosacral intervertebral disc; Translations: [...] Onset: 11-07-2021 Episodic Deficiency and other anemia (11 sources) Iron deficiency anemia; Translations: [Iron deficiency anemia, unspecified] Onset: 01-21-2023 11-26-2023 Episodic Deficiency and other anemia (9 sources) Anemia; Translations: [Anemia, unspecified] Onset: 01-21-2023 01-21-2023 Episodic E Codes: Fall (1 source) Unspecified fall, initial encounter Onset: 04-20-2021 Resolved: 04-20-2021 Episodic Immunizations and screening for infectious disease (1 source) Contact with and (suspected) exposure to other viral communicable diseases Onset: 06-18-2021 Resolved: 06-18-2021 Episodic Mood disorders (2 sources) Mood disorders Onset: 11-26-2023 11-26-2023 Mycoses (9 sources) Tinea corporis; Translations: [Tinea corporis] Onset: 02-04-2023 02-04-2023 Episodic Nutritional deficiencies (11 sources) Folic acid deficiency (non anemic); Translations: [...] Episodic Other nutritional; endocrine; and metabolic disorders (9 sources) Abnormal weight gain; Translations: [Abnormal weight gain] Onset: 01-21-2023 01-21-2023 Episodic Other skin disorders (9 sources) Eruption; Translations: [Rash and other nonspecific skin eruption] Onset: 02-04-2023 02-04-2023 Episodic Residual codes; unclassified (11 sources) Family history of malignant neoplasm of uterus; Translations: [Family history of malignant neoplasm of other genital organs] Onset: 08-27-2022 08-27-2022 Episodic Residual codes; unclassified (11 sources) Family history of cancer of colon; Translations: [Family history of malignant neoplasm of digestive organs] Onset: 08-27-2022 08-27-2022 Episodic Residual codes; unclassified (11 sources) Family history of breast cancer; Translations: [Family history of malignant neoplasm of breast] Onset: 08-27-2022 08-27-2022 Episodic Spondylosis; intervertebral disc disorders; other back problems (14 sources) Pain in thoracic spine; Translations: [Chronic [...] Range Facility MAMM SCREENING BILATERAL W C pattern painter 12-23-2023 MAMM SCREENING BILATERAL W CAD MAMM SCREENING BILATERAL W CAD JUAN RAMON MONK 1985 [id number] EXAM: MAMM SCREENING BILATERAL W CAD, 12/21/2023 [...] 2:46 PM 1 b BREAST MRI Normal [facility] XR SPINE LUMB COMP INCL BEND 6+ [...] Alexandre MD on 12/21/2023 2:51 PM Normal [facility] HGB A1C (GLYCO-HGB)on 2023 Glucose [Mass/Vol] 117 mg/dL Normal [facility] Comment on above: Performed By: #### H A1C #### [facility] ([id number]) [address], [address] [place] [address] HbA1c (Bld) [Mass fraction] 5.7 % High 4.4-5.6 [facility] Comment on above: Result Comment: NOTE ADA Guidelines Result HgbA1c Normal : less than 5.7 % Prediabetes : 5.7 % to 6.4 % Diabetes : > 6.4 % Use with caution in patients with abnormal hemoglobin variants as the half-life of red blood cells and in vivo glycation rates are affected. Performed By: #### H A1C #### [facility] ([id number]) [address], [address] [place] [address] POCT , urineon 10-0 Beta HCG ( test) Ql (U) Negative [facility] Internal Financial Administrator Check Completed and Passed Yes [facility] Interpretation and review of laboratory results Normal [facility] CBC AND AUTO DIFFon 06-14-19 ABSOLUTE BASOPHIL 0.1 X10E9/L Normal 0.0-0.2 [facility] Comment on above: Performed By: #### C BCA, CMP #### [facility] ([id number]) [address] [place] [address] #### 60701-6, HA1C #### [facility] ([id number]) [address] [place] [address], [address] [place] [address] ABSOLUTE NEUTROPHIL 5.6 X10E9/L Normal 1.5-6.6 [facility] Comment on above: Performed By: #### C BCA, CMP #### [facility] ([id number]) [address] [place] [address] #### 82713-1, HA1C #### [facility] ([id number]) [address] [place] [address], [address] [place] [address] Basophils/100 WBC (Bld) 1.4 % Normal [facility] Comment on above: Performed By: #### C BCA, CMP #### [facility] ([id number]) [address] [place] [address] #### 07918-2, HA1C #### [facility] ([id number]) [address] [place] [address], [address] [place] [address] Eosinophils (Bld) [#/Vol] 0.2 10*3/uL Normal 0.0-0.4 [facility] Comment on above: Performed By: #### C BCA, CMP #### [facility] ([id number]) [address] [place] [address] #### 59985-1, HA1C #### [facility] ([id number]) [address], [address] [place] [address] Eosinophils/100 WBC (Bld) 2.0 % Normal [facility] Comment on above: Performed By: #### C BCA, CMP #### [facility] ([id number]) [address] [place] [address] #### 74170-2, HA1C #### [facility] ([id number]) [address], [address] [place] [address] Erythrocyte distribution width (RBC) [Ratio] 15.5 % High 11.5-15.0 [facility] Comment on above: Performed By: #### C BCA, CMP #### [facility] ([id number]) [address] [place], [place] [address] #### 71909-9, HA1C #### [facility] ([id number]) [address], [address] [place] [address] Hematocrit (Bld) [Volume fraction] 38.8 % Normal 35-47 [facility] Comment on above: Performed By: #### C BCA, CMP #### [facility] ([id number]) [address] [place] [address] #### 06496-4, HA1C #### [facility] ([id number]) [address], [address] [place] [address] Hemoglobin (Bld) [Mass/Vol] 12.6 g/dL Normal 11.7-15.5 [facility] Comment on above: Performed By: #### C BCA, CMP #### [facility] ([id number]) [address] [place] [address] #### 02671-8, HA1C #### [facility] ([id number]) [address], [address] [place] [address] Lymphocytes (Bld) [#/Vol] 2.0 10*3/uL Normal 1.0-3.5 [facility] Comment on above: Performed By: #### C BCA, CMP #### [facility] ([id number]) [address] [place] [address] #### 53690-6, HA1C #### [facility] ([id number]) [address], [address] [place] [address] Lymphocytes/100 WBC (Bld) 24.0 % Normal [facility] Comment on above: Performed By: #### C BCA, CMP #### [facility] ([id number]) [address] [place] [address] #### 86804-2, HA1C #### [facility] ([id number]) [address], [address] [place] [address] MCH (RBC) [Entitic mass] 25.0 pg Low 27-34 [facility] Comment on above: Performed By: #### C BCA, CMP #### [facility] ([id number]) [address] [place] [address] #### 00089-4, HA1C #### [facility] ([id number]) [address], [address] [place] [address] MCHC (RBC) [Mass/Vol] 32.6 g/dL Normal 32-36 [facility] Comment on above: Performed By: #### C BCA, CMP #### [facility] ([id number]) [address] [place] [address] #### 38670-0, HA1C #### [facility] ([id number]) [address], [address] [place] [address] MCV (RBC) [Entitic vol] 77 fL Low 80-100 [facility] Comment on above: Performed By: #### C BCA, CMP #### [facility] ([id number]) [address] [place] [address] #### 19471-6, HA1C #### [facility] ([id number]) [address], [address] [place] [address] Monocytes (Bld) [#/Vol] 0.5 10*3/uL Normal 0-0.9 [facility] Comment on above: Performed By: #### C BCA, CMP #### [facility] ([id number]) [address] [place], [place] [address] #### 21421-3, HA1C #### [facility] ([id number]) [address], [address] [place] [address] Monocytes/100 WBC (Bld) 5.5 % Normal [facility] Comment on above: Performed By: #### C BCA, CMP #### [facility] ([id number]) [address] [place], [place] [address] #### 32898-2, HA1C #### [facility] ([id number]) [address] [address], [address] [place] [address] Neutrophils/100 WBC (Bld) 67.1 % Normal [facility] Comment on above: Performed By: #### C BCA, CMP #### [facility] ([id number]) [address] [place] [address] #### 58304-7, HA1C #### [facility] ([id number]) [address], [address] [place] [address] Platelet mean volume (Bld) [Entitic vol] 8.7 fL Normal 7-12 [facility] Comment on above: Performed By: #### C BCA, CMP #### [facility] ([id number]) [address] [place] [address] #### 48249-8, HA1C #### [facility] ([id number]) [address] [facility] [address], [address] [place] [address] Platelets (Bld) [#/Vol] 311 10*3/uL Normal 150-450 [facility] Comment on above: Performed By: #### C BCA, CMP #### [facility] ([id number]) [address] [place] [address] #### 35908-2, HA1C #### [facility] ([id number]) [address] [place] [address], [address] [place] [address] RBC COUNT 5.06 X10E12/L Normal 3.80-5.20 [facility] Comment on above: Performed By: #### C BCA, CMP #### [facility] ([id number]) [address] [place], [place] [address] #### 96780-3, HA1C #### [facility] ([id number]) [address] [place] [address], [address] [place] [address] WBC (Bld) [#/Vol] 8.4 10*3/uL Normal 4.0-11.0 [facility] Comment on above: Performed By: #### C BCA, CMP #### [facility] ([id number]) [address] [place] [address] #### 31975-4, HA1C #### [facility] ([id number]) [address] [place] [address], [address] [place] [address] COMPREHENSIVE METABOLIC PANE Viktor 06-14-2023 Albumin [Mass/Vol] 3.7 g/dL Normal 3.2-5.3 [facility] Comment on above: Performed By: #### C BCA, CMP #### [facility] ([id number]) [address] [place] [address] #### 14163-2, HA1C #### [facility] ([id number]) [address] [place] [address], [address] [place] [address] ALP [Catalytic activity/Vol] 66 U/L Normal 39-130 [facility] Comment on above: Performed By: #### C BCA, CMP #### [facility] ([id number]) [address] [place] [address] #### 35220-5, HA1C #### [facility] ([id number]) [address], [address] [place] [address] ALT [Catalytic activity/Vol] 15 U/L Normal 0-31 [facility] Comment on above: Performed By: #### C BCA, CMP #### [facility] ([id number]) [address] [place], [place] [address] #### 59873-3, HA1C #### [facility] ([id number]) [address], [address] [place] [address] Anion gap [Moles/Vol] 8 mmol/L Normal 5-15 [facility] Comment on above: Performed By: #### C BCA, CMP #### [facility] ([id number]) [address] [place], [place] [address] #### 11411-6, HA1C #### [facility] ([id number]) [address], [address] [place] [address] AST [Catalytic activity/Vol] 15 U/L Normal 0-41 [facility] Comment on above: Performed By: #### C BCA, CMP #### [facility] ([id number]) [address] [place] [address] #### 79747-3, HA1C #### [facility] ([id number]) [address], [address] [place] [address] Bilirubin [Mass/Vol] 0.6 mg/dL Normal 0.3-1.2 [facility] Comment on above: Performed By: #### C BCA, CMP #### [facility] ([id number]) [address] [place] [address] #### 30837-9, HA1C #### [facility] ([id number]) [address] [facility] [address], [address] [place] [address] Calcium [Mass/Vol] 9.0 mg/dL Normal 8.5-10.5 [facility] Comment on above: Performed By: #### C BCA, CMP #### [facility] ([id number]) [address] [place] [address] #### 80474-8, HA1C #### [facility] ([id number]) [address] [facility], [address] [place] [address] Chloride [Moles/Vol] 103 mmol/L Normal 98-109 [facility] Comment on above: Performed By: #### C BCA, CMP #### [facility] ([id number]) [address] [place], [place] [address] #### 90448-6, HA1C #### [facility] ([id number]) [address] [facility], [address] [place] [address] CO2 [Moles/Vol] 25 mmol/L Normal 22-32 [facility] Comment on above: Performed By: #### C BCA, CMP #### [facility] ([id number]) [address] [place], [place] [address] #### 92899-2, HA1C #### [facility] ([id number]) [address] [facility] [address], [address] [place] [address] Creatinine [Mass/Vol] 0.79 mg/dL Normal 0.40-1.00 [facility] Comment on above: Result Comment: METH OD TRACEABLE TO IDMS STANDARD Performed By: #### C BCA, CMP #### [facility] ([id number]) [address] [place], [place] [address] #### 62170-1, HA1C #### [facility] ([id number]) [address] [facility], [address] [place] [address] eGFR (CKD-EPI) NON-RACE DEPENDENT >90 Normal >59 [facility] Comment on above: Result Comment: Reported eGFR is based on the CKD-EPI 2020 equation that does not use a race coefficient. Performed By: #### C BCA, CMP #### [facility] ([id number]) [address] [place], [place] [address] #### 27277-2, HA1C #### [facility] ([id number]) [address] [place] [address], [address] [place] [address] Glucose [Mass/Vol] 99 mg/dL Normal 65-99 [facility] Comment on above: Performed By: #### C BCA, CMP #### [facility] ([id number]) [address] [place], [place] [address] #### 90489-3, HA1C #### [facility] ([id number]) [address] [facility], [address] [place] [address] Potassium [Moles/Vol] 3.8 mmol/L Normal 3.5-5.0 [facility] Comment on above: Performed By: #### C BCA, CMP #### [facility] ([id number]) [address] [place], [place] [address] #### 33476-4, HA1C #### [facility] ([id number]) [address] [place] [address], [address] [place] [address] Protein [Mass/Vol] 7.8 g/dL Normal 6.0-8.0 [facility] Comment on above: Performed By: #### C BCA, CMP #### [facility] ([id number]) [address] [place], [place] [address] #### 09030-4, HA1C #### [facility] ([id number]) [address] [facility] [address] [place] [address] Sodium [Moles/Vol] 136 mmol/L Normal 134-146 [facility] Comment on above: Performed By: #### C BCA, CMP #### [facility] ([id number]) [address] [place] [address] #### 62809-2, HA1C #### [facility] ([id number]) [address] [facility], [address] [place] [address] Urea nitrogen [Mass/Vol] 14 mg/dL Normal 5-23 [facility] Comment on above: Performed By: #### C BCA, CMP #### [facility] ([id number]) [address] [place] [address] #### 93090-0, HA1C #### [facility] ([id number]) [address] [facility] [facility], [address] [place] [address] HGB A1C (GLYCO-HGB)on 2023 Glucose [Mass/Vol] 114 mg/dL Normal [facility] Comment on above: Performed By: #### C BCA, CMP #### [facility] ([id number]) [address] [place] [address] 277[address] #### 47394-3, HA1C #### [facility] ([id number]) [address] [facility] [facility], [address] [place] [address] HbA1c (Bld) [Mass fraction] 5.6 % Normal 4.4-5.6 [facility] Comment on above: Result Comment: NOTE ADA Guidelines Result HgbA1c Normal : less than 5.7 % Prediabetes : 5.7 % to 6.4 % Diabetes : > 6.4 % Use with caution in patients with abnormal hemoglobin variants as the half-life of red blood cells and in vivo glycation rates are affected. Performed By: #### C BCA, CMP #### [facility] ([id number]) [address] [place] [address] #### 25165-8, HA1C #### [facility] ([id number]) [address] [facility], [address] [place] [address] Lipid 1996 panelon 4 Cholesterol [Mass/Vol] 165 mg/dL Normal 150-200 [facility] Comment on above: Performed By: #### C BCA, CMP #### [facility] ([id number]) [address] [place] [address] #### 58296-8, HA1C #### [facility] ([id number]) [facility] [facility], [address] [place] [address] Cholesterol in HDL [Mass/Vol] 54 mg/dL Normal >39 [facility] Comment on above: Result Comment: HDL <40 mg/dL - High Risk HDL > or = 40mg/dL- Desirable HDL >60 mg/dL - Negative Risk Performed By: #### C BCA, CMP #### [facility] ([id number]) [address] [place] [address]285 #### 41751-1, HA1C #### [facility] ([id number]) [address] [facility], [address] [place] [address] Cholesterol in LDL [Mass/Vol] 103 mg/dL Normal <130 [facility] Comment on above: Result Comment: LDL <100 mg/dL - Desirable LDL >160 mg/dL - High Risk Performed By: #### C BCA, CMP #### [facility] ([id number]) [address] [place] [address] 28214 #### 45484-4, HA1C #### [facility] ([id number]) [address] [place] [address], [address] [place] [address] Cholesterol in VLDL [Mass/Vol] 8 mg/dL Normal 0-30 [facility] Comment on above: Performed By: #### C BCA, CMP #### [facility] ([id number]) [address] [place], [place] [address] #### 73114-5, HA1C #### [facility] ([id number]) [address] [place] [address], [address] [place] [address] CHOLESTEROL:HDL 3.1 Normal 1.0-5.0 [facility] Comment on above: Performed By: #### C BCA, CMP #### [facility] ([id number]) [address] [place] [address] #### 35810-7, HA1C #### [facility] ([id number]) [address] [place] [address], [address] [place] [address] Triglyceride [Mass/Vol] 42 mg/dL Normal 27-150 [facility] Comment on above: Performed By: #### C BCA, CMP #### [facility] ([id number]) [address] [place] [address] #### 63306-7, HA1C #### [facility] ([id number]) [address] [place] [address], [address] [place] [address] HBV surface Ab IA Qnon 04-08 Anti HBs quant. 908.09 mIU/mL Normal [facility] Comment on above: Result Comment: Vacc inated: >=12mIU/mL, Positive (Immune) Unvaccinated: <8mIU/mL, Negative (Not Immune) 8-11.99 mIU/mL: Indeterminate, (Considered Not Immune) Performed By: #### 5 [id number] #### [facility] ([id number]) [address] [facility], [address] [place] [address] COVID/FLU/RSV RT-PCRon 02-21 SARS-CoV-2 (COVID-19) RNA KING+probe Ql (Unsp spec) Negative [facility] [employer] Other COVID/FLU/RSV RT-PCR Negative [facility] [employer] Other Quick Strepon 02-21-2023 S. pyogenes Org specific cx Ql (Throat) Negative [facility] [employer] Other Quick Strep [facility] [employer] Other TRANSFERRINon 11-08-2021 Transferrin [Mass/Vol] 234 mg/dL Normal 192-364 [facility] Comment on above: Performed By: #### T RANSFR #### [facility] [address] [place] [address] Dr. Harshad Almanzar CBC AUTO DIFFon 11-07-2021 BASO # 0.1 103/ul Normal 0.0-0.1 [facility] Comment on above: Performed By: #### F ETIBC, B12FOL, FERR #### [facility] [address] [place] [address] Dr. Harshad Almanzar Basophils/100 WBC (Bld) 0.7 % Normal 0.2-2.0 [facility] Comment on above: Performed By: #### F ETIBC, B12FOL, FERR #### [facility] [address] [place] [address] Dr. Harshad Almanzar EO # 0.3 103/ul Normal 0.0-0.7 [facility] Comment on above: Performed By: #### F ETIBC, B12FOL, FERR #### [facility] [address] [place] [address] Dr. Harshad Almanzar Eosinophils/100 WBC (Bld) 3.1 % Normal 0.9-7.0 [facility] Comment on above: Performed By: #### F ETIBC, B12FOL, FERR #### [facility] [address] [place] [address] Dr. Harshad Almanzar Erythrocyte distribution width (RBC) [Ratio] 14.2 % Normal 11.0-15.0 [facility] Comment on above: Performed By: #### F ETIBC, B12FOL, FERR #### [facility] [address] [place] [address] Dr. Harshad Almanzar Hematocrit (Bld) [Volume fraction] 41.1 % Normal 36.0-48.0 [facility] Comment on above: Performed By: #### F ETIBC, B12FOL, FERR #### [facility] [address] [place] [address] Dr. Harshad Almanzar Hemoglobin (Bld) [Mass/Vol] 13.2 g/dL Normal 12.0-16.0 [facility] Comment on above: Performed By: #### F ETIBC, B12FOL, FERR #### [facility] [address] [place] [address] Dr. Harshad Almanzar IG # 0.02 10e3/ul Normal 0.00-0.03 [facility] Comment on above: Performed By: #### F ETIBC, B12FOL, FERR #### [facility] [address] [place] [address] Dr. Harshad Almanzar IG % 0.2 % Normal 0.0-0.5 [facility] Comment on above: Performed By: #### F ETIBC, B12FOL, FERR #### [facility] [address] [place] [address] Dr. Harshad Almanzar LYMPH # 2.4 103/ul Normal 1.2-3.8 [facility] Comment on above: Performed By: #### F ETIBC, B12FOL, FERR #### [facility] [address] [place] [address] Dr. Harshad Almanzar Lymphocytes/100 WBC (Bld) 26.7 % Normal 20.5-60.0 [facility] Comment on above: Performed By: #### F ETIBC, B12FOL, FERR #### [facility] [address] [place] [address] Dr. Harshad Almanzar MANUAL DIFF REQ NO Normal [facility] Comment on above: Performed By: #### F ETIBC, B12FOL, FERR #### [facility] [address] [place] [address] Dr. Harshad Almanzar MCH (RBC) [Entitic mass] 26.3 pg Critically low 26.7-34.0 [facility] Comment on above: Performed By: #### F ETIBC, B12FOL, FERR #### [facility] [address] [place] [address] Dr. Harshad Almanzar MCHC (RBC) [Mass/Vol] 32.1 g/dL Normal 29.9-35.2 [facility] Comment on above: Performed By: #### F ETIBC, B12FOL, FERR #### [facility] [address] [place] [address] Dr. Harshad Almanzar MCV (RBC) [Entitic vol] 82.0 fL Normal 81.0-99.0 [facility] Comment on above: Performed By: #### F ETIBC, B12FOL, FERR #### [facility] [address] [place] [address] Dr. Harshad Almanzar MONO # 0.5 103/ul Normal 0.3-0.8 [facility] Comment on above: Performed By: #### F ETIBC, B12FOL, FERR #### [facility] [address] [place] [address] Dr. Harshad Almanzar Monocytes/100 WBC (Bld) 5.7 % Normal 1.7-12.0 [facility] Comment on above: Performed By: #### F ETIBC, B12FOL, FERR #### [facility] [address] [place] [address] Dr. Harshad Almanzar NEUT # 5.6 103/ul Normal 1.4-6.5 [facility] Comment on above: Performed By: #### F ETIBC, B12FOL, FERR #### [facility] [address] [place] [address] Dr. Harshad Almanzar Neutrophils/100 WBC (Bld) 63.6 % Normal 43.0-75.0 [facility] Comment on above: Performed By: #### F ETIBC, B12FOL, FERR #### [facility] [address] [place] [address] Dr. Harshad Almanzar Platelet mean volume (Bld) [Entitic vol] 10.7 fL Normal 9.5-13.5 [facility] Comment on above: Performed By: #### F ETIBC, B12FOL, FERR #### [facility] [address] [address] [address] Harshad Almanzar PLT 324 103/ul Normal 150-450 [facility] Comment on above: Performed By: #### F ETIBC, B12FOL, FERR #### [facility] [address] [place] [address] Dr. Harshad Almanzar RBC 5.01 106/ul Normal 4.20-5.40 [facility] Comment on above: Performed By: #### F ETIBC, B12FOL, FERR #### [facility] [address] [place] [address] Dr. Harshad Almanzar WBC 8.8 103/ul Normal 4.0-11.0 [facility] Comment on above: Performed By: #### F ETIBC, B12FOL, FERR #### [facility] [address] [place] [address] Dr. Harshad Almanzar FERRITINon 11-07-2021 Ferritin [Mass/Vol] 31.0 ng/mL Normal 6.2-137.0 [facility] Comment on above: Performed By: #### F ETIBC, B12FOL, FERR #### [facility] [address] [place] [address] Dr. Harshad Almanzar FREE T3on 11-07-2021 FREE T3 2.55 pg/mlL Normal 2.18-3.98 [facility] Comment on above: Performed By: #### F T3, LIPID, CMP, TSH #### [facility] [address] [place] [address] Dr. Harshad Almanzar GLYCOHEMOGLOBIN A1Con 2021 ADA RECOMMENDATION SEE BELOW Normal [facility] Comment on above: Result Comment: ADA RECOMMENDED LIMIT 4.0 - 6.0 ADA THERAPEUTIC TARGET < 7.0 ACTION SUGGESTED > 7.0 Performed By: #### F ETIBC, B12FOL, FERR #### [facility] [address] [place] [address] Dr. Harshad Almanzar Glucose [Mass/Vol] 111 mg/dL Normal [facility] Comment on above: Performed By: #### F ETIBC, B12FOL, FERR #### [facility] [address] [place] [address] Dr. Harshad Almanzar HbA1c (Bld) [Mass fraction] 5.5 % Normal 4.5-6.2 [facility] Comment on above: Performed By: #### F ETIBC, B12FOL, FERR #### [facility] [address] [place] [address] Dr. Harshad Almanzar IRON AND TIBCon 11-07-2021 % SATURATION 18.8 % Normal [facility] Comment on above: Performed By: #### F ETIBC, B12FOL, FERR #### [facility] [address] [place] [address] Dr. Harshad Almanzar Iron [Mass/Vol] 48.0 ug/dL Critically low 50.0-170.0 [facility] Comment on above: Performed By: #### F ETIBC, B12FOL, FERR #### [facility] [address] [place] [address] Dr. Harshad Almanzar TIBC DIRECT 255.0 ug/dL Normal 250.0-450.0 [facility] Comment on above: Performed By: #### F ETIBC, B12FOL, FERR #### [facility] [address] [place] [address] Dr. Harshad Almanzar LIPID PROFILEon 11-07-2021 CHOL-HDL RATIO NORM SEE BELOW Normal [facility] Comment on above: Result Comment: 3.3 - 4.4 LOW RISK 4.4 - 7.1 AVERAGE RISK 7.1 - 11.0 MODERATE RISK >11.0 HIGH RISK Performed By: #### F T3, LIPID, CMP, TSH #### [facility] [address] [place] [address] Dr. Harshad Almanzar Cholesterol [Mass/Vol] 147 mg/dL Normal <=200 [facility] Comment on above: Performed By: #### F T3, LIPID, CMP, TSH #### [facility] [address] [address] [address] Harshad Almanzar Cholesterol in HDL [Mass/Vol] 45 mg/dL Normal 40-60 [facility] Comment on above: Performed By: #### F T3, LIPID, CMP, TSH #### [facility] [address] [address] [address] Harshad Almanzar Cholesterol in LDL [Mass/Vol] 89.8 mg/dL Normal [facility] Comment on above: Performed By: #### F T3, LIPID, CMP, TSH #### [facility] [address] [place] [address] Dr. Harshad Almanzar Cholesterol.total/Ch olesterol in HDL [Mass ratio] 3.3 {ratio} Normal [facility] Comment on above: Performed By: #### F T3, LIPID, CMP, TSH #### [facility] [address] [address] [address] Harshad Almanzar HDL NORMAL > or = 60 mg/dl - LOW CARDIOVASCULAR RISK <40 mg/dl - HIGH CARDIOVASCULAR RISK Normal [facility] Comment on above: Performed By: #### F T3, LIPID, CMP, TSH #### [facility] [address] [place] [address] Dr. Harshad Almanzar LDL CALC NORMAL SEE BELOW Normal [facility] Comment on above: Result Comment: <100 mg/dl OPTIMAL 100 - 129 mg/dl NEAR OR ABOVE OPTIMAL 130 - 159 mg/dl BORDERLINE HIGH 160 - 189 mg/dl HIGH >190 mg/dl VERY HIGH Performed By: #### F T3, LIPID, CMP, TSH #### [facility] [address] [address] [address] Harshad Almanzar Triglyceride [Mass/Vol] 61 mg/dL Normal <=150 [facility] Comment on above: Performed By: #### F T3, LIPID, CMP, TSH #### [facility] [address] [address] [address] Harshad Almanzar VLDL CALC 12.2 mg/dL Normal [facility] Comment on above: Performed By: #### F T3, LIPID, CMP, TSH #### [facility] [address] [address] [address] Harshad Almanzar PROF 14(COMP METB)on 022 Albumin [Mass/Vol] 3.5 g/dL Normal 3.4-5.[address] [facility] Comment on above: Performed By: #### F T3, LIPID, CMP, TSH #### [facility] [address] [address] [address] Harshad Almanzar Albumin/Globulin [Mass ratio] 0.9 {ratio} Normal [facility] Comment on above: Performed By: #### F T3, LIPID, CMP, TSH #### [facility] [address] [address] [address] Harshad Almanzar ALP [Catalytic activity/Vol] 62 U/L Normal 46-116 [facility] Comment on above: Performed By: #### F T3, LIPID, CMP, TSH #### [facility] [address] [address] [address] Harshad Almanzar ALT [Catalytic activity/Vol] 28 U/L Normal 14-59 [facility] Comment on above: Performed By: #### F T3, LIPID, CMP, TSH #### [facility] [address] [address] [address] Harshad Almanzar Anion gap [Moles/Vol] 13.9 mmol/L Normal [facility] Comment on above: Performed By: #### F T3, LIPID, CMP, TSH #### [facility] [address] [address] [address] Harshad Almanzar AST [Catalytic activity/Vol] 12 U/L Critically low 15-37 [facility] Comment on above: Performed By: #### F T3, LIPID, CMP, TSH #### [facility] [address] [address] [address] Harshad Almanzar Bilirubin [Mass/Vol] 0.5 mg/dL Normal 0.2-1.0 [facility] Comment on above: Performed By: #### F T3, LIPID, CMP, TSH #### [facility] [address] [address] [address] Harshad Almanzar Calcium [Mass/Vol] 8.8 mg/dL Normal 8.5-10.1 [facility] Comment on above: Performed By: #### F T3, LIPID, CMP, TSH #### [facility] [address] [address] [address] Harshad Almanzar Chloride [Moles/Vol] 106 mmol/L Normal 98-107 [facility] Comment on above: Performed By: #### F T3, LIPID, CMP, TSH #### [facility] [address] [address] [address] Harshad Almanzar CO2 [Moles/Vol] 23.7 mmol/L Normal 21.0-32.0 [facility] Comment on above: Performed By: #### F T3, LIPID, CMP, TSH #### [facility] [address] [address] [address] Harshad Almanzar Creatinine [Mass/Vol] 0.76 mg/dL Normal 0.55-1.02 [facility] Comment on above: Performed By: #### F T3, LIPID, CMP, TSH #### [facility] [address] [address] [address] Harshad Almanzar EGFR-AF SAMOAN >60 Normal >=60 [facility] Comment on above: Performed By: #### F T3, LIPID, CMP, TSH #### [facility] [address] [address] [address] Harshad Almanzar EGFR-NON AF SAMOAN >60 Normal >=60 [facility] Comment on above: Performed By: #### F T3, LIPID, CMP, TSH #### [facility] [address] [address] [address] Harshad Almanzar Globulin (S) [Mass/Vol] 3.9 g/dL Normal [facility] Comment on above: Performed By: #### F T3, LIPID, CMP, TSH #### [facility] [address] [address] [address] Harshad Almanzar Glucose [Mass/Vol] 87 mg/dL Normal 74-106 [facility] Comment on above: Performed By: #### F T3, LIPID, CMP, TSH #### [facility] [address] [place] [address] Dr. Harshad Almanzar Potassium [Moles/Vol] 3.6 mmol/L Normal 3.5-5.1 [facility] Comment on above: Performed By: #### F T3, LIPID, CMP, TSH #### [facility] [address] [place] [address] Dr. Harshad Almanzar Protein [Mass/Vol] 7.4 g/dL Normal 6.4-8.2 [facility] Comment on above: Performed By: #### F T3, LIPID, CMP, TSH #### [facility] [address] [place] [address] Dr. Harshad Almanzar Sodium [Moles/Vol] 140 mmol/L Normal 136-145 [facility] Comment on above: Performed By: #### F T3, LIPID, CMP, TSH #### [facility] [address] [place] [address] Dr. Harshad Almanzar Urea nitrogen [Mass/Vol] 10.0 mg/dL Normal 7.0-18.0 [facility] Comment on above: Performed By: #### F T3, LIPID, CMP, TSH #### [facility] [address] [place] [address] Dr. Harshad Almanzar Urea nitrogen/Creatinine [Mass ratio] 13.2 mg/mg Normal [facility] Comment on above: Performed By: #### F T3, LIPID, CMP, TSH #### [facility] [address] [place] [address] Dr. Harshad Almanzar TSHon 11-07-2021 TSH 2.765 uIU/mL Normal 0.358-3.740 [facility] Comment on above: Performed By: #### F T3, LIPID, CMP, TSH #### [facility] [address] [place] [address] Dr. Harshad Almanzar VIT B12 AND FOLATEon 022 Cobalamin (Vitamin B12) [Mass/Vol] 689.0 pg/mL Normal 193.0-986.0 [facility] Comment on above: Performed By: #### F ETIBC, B12FOL, FERR #### [facility] [address] [address] [address] Harshad Almanzar FOLATE 6.90 ng/mL Critically low 8.60-58.90 [facility] Comment on above: Performed By: #### F ETIBC, B12FOL, FERR #### [facility] [address] [place], [place] [address] Dr. Harshad Almanzar Quick Strepon 07-27-2021 S. pyogenes Org specific cx Ql (Throat) Negative [employer] Other Quick Strep [employer] Other COVID Quick Testingon 2021 Result Negative [employer] Other Quick Fluon 06-18-2021 FLUAV Ab CF (S) [Titer] Negative [employer] Other FLUBV Ab CF (S) [Titer] Negative [employer] Other MRI KNEE LT WO CONon 022 [...] by: RONEN MENDEZ Date: 2021-04-28 14:53 Normal [facility] XR knee LT 4V*on 04-20-2021 XR knee LT 4V* [facility] [place] [address] XRay Report Signed Patient: Juan Ramon Reeves MR#: [id number] 32 : 1985 Acct:[id number] Age/Sex: 35 / F ADM Date: 04/20/21 Loc: XDUCLY Room: Type: [facility] Attending Dr: Jaycee Teran APRN Ordering Provider: [...] Abhilash You M.D.04/20/2021 6:24 PM Dictation Location: [place] [address] Transcribed By: [facility] 04/20/211823 Dictated By: Abhilash You II, MD 04/20/211821 Signed By: 04/20/211823 [facility] Coding Summary.on 02-14-2021 Coding Summary. CD:[id number] DNw9mEx+PGhlYWQ+PE1 SKCTeY53ynGXyeL9ZX0 iDNJ9VXTGPTPUOHQ3ZD P2dlYR3KPfmA0BjofIw MmqunQJtQU69SSp7PSP 9rCzkBWnpmR9yuYXnQ9 t0GzBhRW95lB55UAkgB KUdHuL3MkYfdreanXUd F8uvZbWowNEaZmt+PHR hYmxlIHdpZHRoPScxMD WoVcMktCxaQF1oYo1iE GVyLWNvbGxhcHNlOiBj d3kmAWTfSJlrQC4wzIg pC1GidAD1ZVSym7u4Ne 48dHI+GGWsFMK9rXobT Ibsr859IkMdp6swCSK9 xONxEHqsARI7C97bs5C 8GWBlHUMsMJY8aMX4sT 4mwVqkfzrcT7UtfTOaK bC5TOQ5ePObkW3rrSdj onczwV4gUwy+D19FJT9 GRRAZHR1MSdq5O8EfHm wvdHI+PC35JDAtCX02r VJerCIzn0szhRz8LeIx FLOnWCO6lOciNPwcq2P rVIPuD87uyALga0E7IJ NnzLezoXKsFsLcmAR8w C9tKAzjfdrvi6gtcesk Nothi2ybtx61mB86Q32 gTZshTXQuKGH4LAXeCJ LbhNwyzm8iwM0yIm8+I Maqo6qnc0vloYl7IdPk JDOadtPqeJgwWKV1q0N xIl14V7LkkKoed3EnUb h8ik99lOCpt8G6lTK9L BnaTHYkaZ4bTWpnIdK9 JLRkLwIblV01sNOlSQz lGd7fbGlafRtgEG6uAH QmcpaeFHSvaX8uDYVjz RFyhRahSP1xQJInxncz d720TsCaLHA5ZVTbiMZ uZ2UhoH3lNqOlIJEuYD BkL0RbfEVbHJmgE257Y VbiEaP8UECpkpTzT9Kd MOLypGuhMtJ3t6M9Kh3 Bd4FdkemaMQZ0QWpvOJ VhMhI6HmYgNyV3D2ZeV bh0KUZceGnuMS1qF5Rh ROYomjrmybzrhEC3NEA rSZDmjM18xYAeREefQr 8ja4A8l918NSFeVSOqm C63Av3vzQmePSUxwELG vU8wvtrnf2whgwjmCdD yUASeOIv6UHo4AQSptN bvUmKmHVH2RfV5NND4f RXfbI4jpLrqaorxgU2e Oyc+X34liU2nEIT0NFH 6bhtfRVZmpvXgMY64WX 55U0GhQfwvpLKhkGY+P LSgonNvzXpaZJ4nNtWp l2tac9MrLVuiO6IcTFU gKUlqTdo2KYFzVBO4uI B2kH3nSCTnHOkal8P2r TE4R5PeymTiww9fp6eh YAVoXJtnR82jmQJad9T 8NTEhzDP7UXGdjTpiIn CynW01Nyf+PGNvbGdyb 0NjWdicg0jhz5dkaFa8 IjMwJSIgdmFsaWduPSJ 0u8LcTt91P57bRRxuGK RoPSIxNSUiIHZhbGlnb j2btO6kTo8+PGNvbCB3 nDD5tS2oEDXkFqX0UCi jV127XtJtuNTsEkbsy1 pzf3prbMi6VzLsYSUew wGlhJbxPNH3n4BzXt47 R35yKLixMPMgOLBgTAU kSBKpjEuips5anZ1xRq 8+SE9he6lwdd33zV40m HI+MUFrJVV7aCliUYic HLZnoQ0uMAbaEsZ7FKZ mAcHifB06oCPtMYgnLk 6dzSrixFtiBQ9rEGBcs rsul441DcMdt5enAQPj fWUoQWasULN2A85dc4U 7LMUhXJUyENH1zXH6kE 1hbGlnbjogbGVmdDsgd gPmnBokZUkhJUprR791 IHRvcDsnPlBhdGllbnQ eFnBiQCv6D9AnNjl8HG AohAukKT3zjWQsRXyiJ d9scVfbbPgpQU5eNYLm mbbjs539BuKmt2zeVNC ypKUiGElkXLO9T08og2 H9BVYxGGKiVXY2iTB2r O1zmNkkxkmctYRdpPrl xrAgvAnlIEorROqiL48 6IHRvcDsnPkJpcnRoIE KgyDT0AG42QO00oSTvz 6Y7qZP4M8NrVYMocfxc eheadOK4WPWtFLDzkS1 8Rs3whDymPo3mAXWrBD J3DWPzxWXcX7AysA7cB nKoYXDkIOWyW2UahSGw BBhjE794TAzgOzY2TMM oztRkD7LeTQBvrUpgUq W5i8Y6Oo0WN6D5MD08K M41tJVuh8J4aSP3S3Wl AMNfpbhfefkwiFF3LCY wLOCsjG77Wf6rcWeeFq 8mYRWaZNT6UTBdgWYaZ 7ExzL6mUaRfYPFhPSMi F0NnfZVuLPwyV196EVp tTwL4VGMwerRyO8IlUZ SglLccMhR4l8V5Dh8QO Co9RA21VB97sKWmi8K0 kDT3M6BuSBDgvwsaeso pnXJ4YCUkBRYvwN23Ec 5iwVpnFo0sMXUfSBF2I AFmnHMsN4VpaF4nJfJe HCHpDFDfT6EbsLCpMNh yZ630TVpiIaV6VPHklm KdM0EnFNGowDedNiS7c 6P7So0KAQMxRL67PXE5 uDN6UR41ZQ15U7HvQyb vdGFibGU+PHRhYmxlIH dpZHRoPScxMDAlJyBzd BxvJE7vDt9gXIUcNRJi zRmefMBdEpBey5ybMEK cVMjxQI5frOvmY0MepK M3UXRyq3w1Zu76I17xY 3JvdXA+PUHesKG5qQV3 eU6iUlCxAtW1HIeeW42 6HhPkrZYzJxhjb3pky4 qzxSx1NvD7GLSmltNgp XvtUHD0q8IgDx65B67x IHdpZHRoPSIxNSUiIHZ seByabc3bpQ3fJy3+PG OpxNL6mWU7bH3gKmYgH gF3EFogN087NtTjkWDy Sduoa9jms0jjaKl6VjS nYYKkgqAzjElgNRH7d5 AyVy99S6OerLszl3GwW sq2tp95rUFoo8V9fLO3 S6PaBLWfeuzwtNYlyHy iBR2mPVItoaujQNFxjC 6cJJGwS8q9QyUzLgZ1W PkcA1WuleZ8XYBegGSu INgmSOS5T97is8P1QPO dATCqRRL0dVG4iV6rfL lnbjogbGVmdDsgdmVyd NrzLZuqUQndQ497VDTl cLgqQHVujY1xFXOroOK biDuoJC7nYFSxozvuBc JBUFAsIEJFVEhBTlkgQ TwvdGQ+NJFmNSM2sDcn BSwtHTWodI9hOPXeG8y 7TkLgTdU0ULwaE4VrPE VksqvaZf50nU4wRvDiB aN7FWdbG7LzstF5ZDYk jCPkGEmwAXY1H76uu2Z 0OKVfLXLrRJS6sXH5yH 1hbGlnbjogbGVmdDsgd sXicKjoUOjqDCnpR342 LRQdlRvkWuE4FnZaRsQ 7XWE6B9TjIml6MAVlnS ycXF6wdETfZYnqFv1zk WdlaZigDX1lXZYuuawp MDFjgV8fFLFttJWpeJv eFM7yNLRjdwxqd972Pu BrVBA6DEWriWGcP2Vel U3kEkNyOIVqSLDpV7Pj qOFeKAopY495SZfsMgJ 0PLSkwpMvV9VyAVIgxY zzVnN2e2P9Jh4pQyHPV WFyczwvdGQ+PHRkIHN0 bRilXHasAUXxmM9vPHM hL5n0IaHdXtQ6NKvuW4 BmKMUdlqoxRr77eF7iC eMyFhL7TSrgD9NjwcF9 WIUgzRTpGHstTLX3W74 ay0L3SBHwJEPkMSP8dR E1xT5bzElyrtlmeGHks DsgdmVydGljYWwtYWxp R493IRDroAedAaWjgPS sZTwvdGQ+AWMoCHB1aJ zdMWkcJLHuuE9rKUBpG 0m5NoXuQtG7WChqI5Vk EBExfilaAr67wO9kYgX aByH3ZCpuY8JsxyN8HR NtsDBsGTchZLU4G55rg 0B9GRAiLWUpIEH1qEH4 rO3duFbinavwlWPaeAw gdmVydGljYWwtYWxpZ2 57CHBgfFqrOx22qIDrj MgefhT2P4DbAkekdLL+ DL35VEIuYN06sFBvmJB yr2gvyDr2OoNeEACcSF R3oJleNJpjw2KmSANqJ 01owULlj1N6IVVrnBgo sUEkUhIwlFX7wX4xLRq ibvyau6fardtiRdvbs1 rzkz29hC63M62kKVcaN HRoPSIzMCUiIHZhbGln me8gtT4vWn3+PGNvbCB 4cFB4iT3dUkPrDtM4PC fgR905EdXfzTWdRgqcd 4duc1jkbBn1ZwXnOFQy arWvtNgjIMJ7u6PcRn2 8L33gUWtuZSQhAKLbKW ZuWHYpoNstsa9ybO3hY i8+LY9kn9cipc58sL06 dHI+FMPxXCN8nJgrHNq iSJCtpL5rEBygFvE0PK CpXtSqkN90kWMcQDnbV r9hzYknjPpnXT1oBDPa yffdh568OjPan7aoESK jxUVdOKkrUHE2T56of7 G8QOHsBPAeHEJ2xBK8i K3orUqoaboqtWWjaPby cgEdfQsdUXjaEEjyW58 7SNGruLelIqRvyPOjF0 hzxxYGIY0fIlhqqPT+P YQqLCD0aEgsCEqkQUBi jG8rISNkT3q9VbLkGdM 8TUtaM2RcblK4ZCEjzL LcTKOqfTSXfO8fymocc 4shkmbzBhOjDXVzEDk5 MZt3NMVgbMzlUmBnMDW 4KmH5BAM7sUCehU3htR tzvagyyX7pCyt+RklOO jwvdGQ+LOCiLET7bGcz RMjlTCDqtZ3kQCSeX5k 5EgCoMtG0HCycT1Peah C7NQBkwJOzITEjkGKGr F3hqpkrm4sfqtfuSaPj SQVaDYr4GXv9KRLwiNi dTxRzNGA4QhV1STM3gM IxyT4hkVhqxxmriB2oX yc+TVJOOjwvdGQ+PHRk OYC4oLmgTRniBWPizI7 vUDPoC0s2PiPmMiD5CI pvQ3OwcvD5ZHNomKJlO FKtdTADaJ0uyxtbl8sd aesvStVaHLIvKCh7MPj 7FEJjvDulCkBeARC2Vi C8JTR2qWBmtD0qnKcpj yybtX6mYkk+XZN7YNS9 WK50XK90S6KnTbsqoBH ibGU+PHRhYmxlIHdpZH RoPScxMDAlJyBzdHlsZ G4hVq1lZMXmTYPniOps [facility] (more content not included)... Normal [facility] Auto Diffon 01-27-2021 Basophils/100 WBC (Bld) 0.9 % Normal 0.0-2.0 [facility] Comment on above: Order Comment: Order Added by Discern Expert. Performed By: #### 2 [id number], [id number], [id number], [id number] #### [facility] [address] [place] [address] 21941 Basophils/Leukocytes Auto (Bld) [Pure # fraction] 0.1 E9/L Normal 0.0-0.2 [facility] Comment on above: Order Comment: Order Added by Discern Expert. Performed By: #### 2 [id number], [id number], [id number], [id number] #### [facility] [address] [place] [address] 43119 Eosinophils/100 WBC (Bld) 2.0 % Normal 0.0-8.0 [facility] Comment on above: Order Comment: Order Added by Discern Expert. Performed By: #### 2 [id number], 4804705, [id number], [id number] #### [facility] [address] [place] [address] 71750 Eosinophils/Leukocyt es Auto (Bld) [Pure # fraction] 0.2 E9/L Normal 0.0-0.5 [facility] Comment on above: Order Comment: Order Added by Discern Expert. Performed By: #### 2 [id number], [id number], [id number], [id number] #### [facility] [address] [place] [address] 68297 Lymphocytes/100 WBC (Bld) 19.0 % Normal 14.0-50.0 [facility] Comment on above: Order Comment: Order Added by Discern Expert. Performed By: #### 2 874725, [id number], [id number], [id number] #### [facility] [address] [place] [address] 54292 Lymphocytes/Leukocyt es Auto (Bld) [Pure # fraction] 2.2 E9/L Normal 1.0-4.0 [facility] Comment on above: Order Comment: Order Added by Discern Expert. Performed By: #### 2 586036, 6078060, 2939543, [id number] #### [facility] [address] [place] [address] 83826 Monocytes/100 WBC (Bld) 4.3 % Normal 4.0-14.0 [facility] Comment on above: Order Comment: Order Added by Discern Expert. Performed By: #### 2 [id number], [id number], [id number], [id number] #### [facility] [address] [place] [address] 28034 Monocytes/Leukocytes Auto (Bld) [Pure # fraction] 0.5 E9/L Normal 0.2-1.0 [facility] Comment on above: Order Comment: Order Added by Discern Expert. Performed By: #### 2 786316, 0342235, 7575356, [id number] #### [facility] [address] [place] [address] 52999 Neutrophils/100 WBC (Bld) 73.8 % Normal 36.0-75.0 [facility] Comment on above: Order Comment: Order Added by Discern Expert. Performed By: #### 2 070477, 3178414, 9509809, [id number] #### [facility] [address] [place] [address] 22719 Neutrophils/Leukocyt es Auto (Bld) [Pure # fraction] 8.7 E9/L High 2.0-7.5 [facility] Comment on above: Order Comment: Order Added by Discern Expert. Performed By: #### 2 313199, 3686515, 1340714, 0372501 #### [facility] [address] [place] [address] 68911 CBC w/ Auto Diffon Erythrocyte distribution width (RBC) [Ratio] 13.5 % Normal 10.9-14.2 [facility] Comment on above: Performed By: #### 2 794180, 6773683, 7785662, 7107359 #### [facility] [address] [place] [address] Hematocrit (Bld) [Volume fraction] 39.9 % Normal 34.0-46.0 [facility] Comment on above: Performed By: #### 2 456095, 8806845, 7474308, 1304765 #### [facility] [address] [place] [address] Hemoglobin (Bld) [Mass/Vol] 12.9 g/dL Normal 12.0-16.0 [facility] Comment on above: Performed By: #### 2 169484, 7870911, 9205208, [id number] #### [facility] [address] [place] [address] MCH (RBC) [Entitic mass] 28.0 pg Normal 27.0-34.0 [facility] Comment on above: Performed By: #### 2 235063, 5926387, 1747698, [id number] #### [facility] [address] [place] [address] MCHC (RBC) [Mass/Vol] 32.5 g/dL Normal 31.4-36.0 [facility] Comment on above: Performed By: #### 2 649995, 3535416, 2364335, 7813189 #### [facility] [address] [place] [address] MCV (RBC) [Entitic vol] 86.2 fL Normal 80.0-100.0 [facility] Comment on above: Performed By: #### 2 374060, 9686971, 8159660, [id number] #### [facility] [address] [place] [address] Platelet mean volume (Bld) [Entitic vol] 9.3 fL Normal 6.4-10.8 [facility] Comment on above: Performed By: #### 2 246931, 8626415, 1366612, 9497090 #### [facility] [address] [place] [address] Platelets (Bld) [#/Vol] 286.0 E9/L Normal 150.0-500.0 [facility] Comment on above: Performed By: #### 2 854725, 9302697, 7554900, 6089492 #### [facility] [address] [place] [address] RBC (Bld) [#/Vol] 4.6 E12/L Normal 4.3-5.9 [facility] Comment on above: Performed By: #### 2 600854, 2184197, 6385999, 5175072 #### [facility] [address] [place] [address] WBC corrected for nucl RBC Auto (Bld) [#/Vol] 11.8 E9/L High 4.0-11.0 [facility] Comment on above: Performed By: #### 2 383495, 0104811, 2556428, 4951596 #### [facility] [address] [place] [address] Consent for Treatmenton 01-18 Consent for Treatment [id number] 0C#1.00CD:127 Normal [facility] Ferritinon 01-27-2021 Ferritin [Mass/Vol] 68 ng/mL Normal 11-307 [facility] Comment on above: Result Comment: NORM ALS MEN <30 YRS 16-132 ng/mL MEN >30 YRS 8-338 ng/mL WOMEN (PREMEN) 6-104 ng/mL WOMEN (POSTMEN) 12-210 ng/mL Performed By: #### 2 674404, 9212227, 6930958, 1065353 #### [facility] [address] [place] [address] Ironon 01-27-2021 Iron [Mass/Vol] 44 microgram/dL Normal 35-153 [facility] Comment on above: Performed By: #### 2 574463, 6118021, 0073737, [id number] #### [facility] [address] [place] [address] Coding Summary.on 10-03-2020 Coding Summary. CD:[id number] TOe3lJf+PGhlYWQ+PE1 OIYBqH08unYCmyY1PK9 pNSI1PALZQFJSJLZ0LF B3moDD4GNwgV7WyupQe QsprzGAsVW70KLv0MRT 3hDvqHKdpzI9xyDMjY1 w9SfNbJA11yE91JPdmI EBkSyW2AbGkkgtflNSu O8tjUxGqnNIdAfn+PHR hYmxlIHdpZHRoPScxMD LlTeQroAduXP7fCa5zB GVyLWNvbGxhcHNlOiBj e8ksVRApDJqsZJ7epPg lE1LfdSV5NIMhx5r6Mq 48dHI+CJDnSCO3fWsqI Tluo257TiQet1pzCBC6 pYJdTNjnOUM7N93kd4T 8FLTgHYGsDYX2cLT4nF 9mbIwecqqxB8WnbIBoF mL0TMO5xCSjjI6uqAxl tbfvxW0qIng+N40COW6 JGOIQJE0SEdo0O2UtDf wvdHI+PN19OWDcXD58c GSpfEZbb6xhfIs9OqNc PBFbSWA9yZxiGWlkz6V gMLUbW96gyWWcw2K9ZB HapFbxnXAmDoOzyJN4j U9oUSfhhhjgd0ppopuk Prpap5cqxd31yF80T72 gUEygHWGwCMI9IGLwAH QxgEktil3gwR1lMe9+I Dqrm5kll3pevLp2PtTv SXGkebOmnLliCSP2e4I zMu34M6WuqAivb7ZxWr s0bl53lSAbg5G8uQX4Q WfnLYHlhC4mJKslRvF2 USQlCrNfsC08zPZtQHx cZu2bmZmeuSehEX6fQJ JmsqxuKYKmpE5cTKLkn MHzpWgsVA1gRXVfwuez c399HrVuBSM9CFWshAN bW7BmuX8uLgZiRHTyLN HsS9StfJMqIVgsG580F YmeYbT7QRIhyfXrS7Xm JOKvmGyuBmI2a5N1Uo0 Lx8NihsmbNIW2SPmyIY G2KmJ6YfPeZaP6Y4VgF tk9WRSdoCpxWR0mA6Kl VKRpchzbkppkgOC3RDI jJBEdtK46aUPfFBazQh 7ln2Q4x433POUcVFRgt H36Ih2lsQkcYOIgoFIG hD3ccfcoo0jxzsanCkQ tYFIuEXa2KWb7CNAlxK vzEkQfSSJ4XsC0FEF7f DQrxG7fvIedouhhwQ9u Oyc+O75kuI4iILG6UEL 3jzqoLFPlexWmTH59MJ 04V6BzQzdsvQAvuNC+P ACaaxWqeFsjMO5sEuMp e7bmi5YnXQitW4EsTMN rCGqpFzi8RABlEGM3rT E6tB0sSUFeZYpam9H4l LS2X7YpxwAjyw2sc8yb CIYdTEwuZ84leKIpw7M 5TYFqwBB4KEKxvJjyLi PqeU10Emq+PGNvbGdyb 9SzCwchf9gfv4crvYt6 IjMwJSIgdmFsaWduPSJ 8h1IlGu19B30bRFblIW RoPSIxNSUiIHZhbGlnb h8zhC1tGu8+PGNvbCB3 uNF3eU9eMIMeKwV8ERu gT696TgNirVVhXwvbf9 ahc8srvMj1OlEpLXBpy xVplHnwGQL8t8OlZl87 G32qHLrgXBIwXUWdBEI yZMZjcJbpyt9nzY0sPq 8+IB0we8bxon29uO50q HI+VKXbWPM4rDubXGsf WBPwfP6nEZsnAlC0SFC bFhRuyN45yQEzHHnhGz 4ptWapoPieLS6uJIYwt ehso249AoVrl0zpIFHo hJEkILzuWQN2Q95kq2I 8CUPaZBKkFDA0kEA2mG 1hbGlnbjogbGVmdDsgd iYpiAzzXWxgRHqvB714 IHRvcDsnPlBhdGllbnQ tVjTzLMd5Q5PsCsa3GD AxhSnuRL6jlDCqHCblL o7oePbvfLbaGF7jHLKb kwlam520OiLrf7gzRBS wiSHiCOudKDR7M83jq9 O0URGlMLUpDXI6bTS3m N2bsMzpecfrdHDslAgk xuNgiCsgBZelTZtfA02 6IHRvcDsnPkJpcnRoIE MzqHI6SE82UW08jPNyt 5F5dAO8L1JaTSHohqzy fxtkwQR8OJMpOHOgqE0 9Zl9pkHdxPg4pICIjFI R6WNJavIRwN3FadM5dD sFbXPMdXALyS0SfhUAl AMfcJ398RXbrDoS4QHR wlpIuC2MoJHCclLriGg J9y5Z7Up3SV7I5SE87S Q84qKWjd6G4aSS6G0Zj OULkcdwpdyothNV4QMO gDGCfaN34Zu6wnHfwOx 9eACZdCMT4MXXgaOGcB 6ZhgH7hOcJnVDErKHRg X0UovVOqNUgsH254KGa zCrI3HBQibsKdA9OmHB MdnSoiZwN6b5T3Wr6JA Up9JN81GC28gVVyr2Y7 jFU6K2BmDOVjmwcfbic xxSS0AMLcCKYbhT17Rq 6udEojIj1hBITgHTW5T XNorAJrE2GwrB4yVtDi SJSaFHVgG6VywFVjBCg zL869BDjkKdG5YXXfpy OwX6PbIOLvsHyfNyM4j 5X2Wt0MXGCaFK03TUR4 jGH8VV39YA02E5MbYcm vdGFibGU+PHRhYmxlIH dpZHRoPScxMDAlJyBzd GviOO9qRz5iVMYpYQYw vOomxHJdPbGei9ibMZX qHHqcOD9jySsgB0MewF M7EFKuf7h2Di52S33gY 3JvdXA+FSDpuRW0iFI9 gM4mRqSyMcK2LPlzG65 7QqAekGMcZodpp6ahb1 tkfSo8EoB2VKGjteLbb RabRUL5i0LyWo55S38w IHdpZHRoPSIxNSUiIHZ yuVjfco5qfQ5sBl9+PG ZrtQQ2nLY5dY2xFjAaC qE7AKljA694QmAauZZl Neall0wlx3kgcEk5GuH uIYNgpzHvaQfkQJS9j3 MjNy98K8JzqSuie6CfM fd5rz88uSIyr0O5gQZ5 X7XwANKzaeyscNYjrWe eOP3oWEJpmopjQGDgqK 6uXPJwF7g0DzMlDoM4F XhtL4LfnuO6QIRhpRGy PLmyLWH4Q11os2O4YFP qHDGmIAM0oGB6bR9prU lnbjogbGVmdDsgdmVyd EohAMdoODhiS950MXUq pMuxISMtcO3qJWLbgRW zhRzoTY7yTJCsexumYn JBUFAsIEJFVEhBTlkgQ TwvdGQ+BWXkETW7dEob OLrqRWXwbH6cCCTaH6q 0DmDcYfI2GQodR2CdCE InivajTy17bA9dYhKpZ iE2ZGvvJ3ThczT7JGVe nKHjEImhADT7E98us8X 2MBPsGUJqCMT4sKR1aB 1hbGlnbjogbGVmdDsgd bMcoXoxLKcuBAjpE564 JGKojBwaPxM6WgRlQvP 7YWK9I0TvIrf8FJWxbM ccTU5gxAGxAZxsJk6ld CyasWlnQD8nAUYrsaai BSMvjO5wURTebGRsdYl nDQ7vTNHpzeuyb647Ho QxJXU8GNTyiPUdI8Kek Z8aFoRtVGPaVKSiO0Sz fFVrNOkiA319QCntXlK 6LKXspnHxP3MlOQInsA eyCsX2v9R7Mu7rKuYWE WFyczwvdGQ+PHRkIHN0 vFkmGEhiWHFgpF3rJDW kQ0e3GuQvSwL8NXisJ6 JnLUTpgxbdEn19pH5oU qHtDwH9WGsbS3RlicG0 TYJebPEpAIeiRRR8I56 pe2W2JAAbFFZhQTQ4jI I2fW2ffUmyfcbnrYMuc DsgdmVydGljYWwtYWxp L073JYNaoGukGrOzzUI sZTwvdGQ+VSMpQKQ9cJ zsJRplUQQywJ1sVMKtA 6r0MvWvTmT2ZQdnO4Fx ETEjgbswSe63uX8jXqC hDcL4IQcqM8JlhlL3BS FrqTZkGTavZZM0G79yc 2L5HOWpMIEoADT0vYR0 uT9geXrcaratzYYgtLw gdmVydGljYWwtYWxpZ2 94DOVcnVliOr60gXKwx XapvgE3F7LtKbeduPK+ QR79QZDuPD87sRIqhWR gb9ukjVw0RxYyWTJxSW Y6uSabZLvdh4ZmOBDfS 75aaMMlt5J9VWWhmFms sZUtArKtoSX4gU7vLYj rurvjn2msxvekKcucq6 drob77cM08E97dKOzoF HRoPSIzMCUiIHZhbGln gx9mgE2xBk8+PGNvbCB 2dDE6aK7kFkTxOeS4UT wiU836EpIwvZHbCxkbt 1sfo2atrUt8TxQhYLPh htDnyBjvTZU5j1FyJp9 7S23hEWybHQNnLSQnBB QhKUWhmFoiaw2zzU4lX i8+EH6iq9sbwa58vR87 dHI+FFLpQLF7tJyhDXw xRLZjsU4sNWhdMgM5LA SxQeFdvE09mWDpTSulX h8kmOpujCwwUD2mDIWs qamxg976DpOnp0jxAHP ufYUkYLloMXU6P36ze6 C1GFIgFOAiPVH3tNI0c P3uuNqspxliiFMsfXxf jvKfgBpcBWjxYPyaB40 9BSJeuLyfWaIokTJsV9 zoelFOMQ2yGncpxBW+P ZLcFVH0pWchXMkmRJDg iZ5fKCKhX1e7SzXcMgC 7CPqfX5BxthR6APHzxB BjORHvxFHBtP4mfpqxt 0xnptesVcMjFMUjIEu8 EWu9AOZaxFkpNtOgBOK 6HgB1NCT2eAZchW4gjO bultqjdW9xBgf+RklOO jwvdGQ+QKLcPSR7uMgh LWnoKZRnmK5lQNOdS5k 5MdLyEqU3HViiE9Qpdv A9JBWvvNAkRDXztPKKk N9yehmlf5qonutnEjQi OTTeLUz7OCq2DXRyzTs gLeGwMYW8ScV4JLN4pJ FpxN2asTvmnjbehE4jM yc+TVJOOjwvdGQ+PHRk VEM7xSppHGxcBVTvqD8 nOWJiS8p0MrXlFvH4UG mlK8DbumJ7JPYliQUoW ZIrsNSLsY3iaeptg7nz mzhtBmPiOCSrJRv4QRr 5OYNslVkbVvRlQRH7Xh X1FAP7uZGbzN9shOrie kbhzD4kAid+EBV7KMG4 LB67TU39X5KqJbanjJR ibGU+PHRhYmxlIHdpZH RoPScxMDAlJyBzdHlsZ N0dKq3pBBOvLIRtiFph cHNl (more content not included)... Normal [facility] Vital Signs Date Time Vital Sign Value Performing Clinician Facility 01-22-2024 08:26-0500 Body height 165.1 cm Cary Huizar [employer] Work Phone: [facility] 01-22-2024 08:26-0500 Body mass index (BMI) [Ratio] 52.62 kg/m2 Cary Huizar [employer] Work Phone: [facility] 01-22-2024 08:26-0500 Body temperature 98.01 [degF] Cary Huizar [employer] Work Phone: [facility] 01-22-2024 08:26-0500 Body weight 143.43 kg Cary Huizar [employer] Work Phone: [facility] 01-22-2024 08:26-0500 Diastolic blood pressure 66 mm[Hg] Cary Huizar [employer] Work Phone: [facility] 01-22-2024 08:26-0500 Heart rate 81 /min Cary Huizar [employer] Work Phone: [facility] 01-22-2024 08:26-0500 Respiratory rate 18 /min Cary Huizar [employer] Work Phone: [facility] 01-22-2024 08:26-0500 SaO2% (BldA) [Mass fraction] 99 % Cary Huizar [employer] Work Phone: [facility] 01-22-2024 08:26-0500 Systolic blood pressure 128 mm[Hg] Cary Huizar SCIENTIFIC HELPER Work Phone: [facility] 12-17-2023 09:54-0400 Body height 165.1 cm Cary Huizar SCIENTIFIC HELPER Work Phone: [facility] 12-17-2023 09:54-0400 Body mass index (BMI) [Ratio] 52.25 kg/m2 Cary Huizar SCIENTIFIC HELPER Work Phone: [facility] 12-17-2023 09:54-0400 Body temperature 98.29 [degF] Cary Faganzpatrick SCIENTIFIC HELPER Work Phone: [facility] 12-17-2023 09:54-0400 Body weight 142.43 kg Cary Huizar SCIENTIFIC HELPER Work Phone: [facility] 12-17-2023 09:54-0400 Diastolic blood pressure 64 mm[Hg] Cary Huizar SCIENTIFIC HELPER Work Phone: [facility] 12-17-2023 09:54-0400 Heart rate 83 /min Cary Huizar SCIENTIFIC HELPER Work Phone: [facility] 12-17-2023 09:54-0400 Respiratory rate 16 /min Cary Huizar SCIENTIFIC HELPER Work Phone: [facility] 12-17-2023 09:54-0400 SaO2% (BldA) [Mass fraction] 98 % Cary Faganzpatrick SCIENTIFIC HELPER Work Phone: [facility] 12-17-2023 09:54-0400 Systolic blood pressure 110 mm[Hg] Cary Huizar SCIENTIFIC HELPER Work Phone: [facility] 11-26-2023 08:30-0400 Body height 165.1 cm [facility] 11-26-2023 08:30-0400 Body mass index (BMI) [Ratio] 52.09 kg/m2 [facility] 11-26-2023 08:30-0400 Body weight 141.98 kg [facility] 11-26-2023 08:30-0400 Diastolic blood pressure 80 mm[Hg] [facility] 11-26-2023 08:30-0400 Systolic blood pressure 110 mm[Hg[facility] 02-21-2023 14:30-0500 Body height 165.1 cm Jaycee Jeffry Other [employer] Other 02-21-2023 14:30-0500 Body mass index (BMI) [Ratio] 49.92 kg/m2 Jaycee Teran Other [employer] Other 02-21-2023 14:30-0500 Body temperature 97.4 [degF] Jaycee Teran Other [employer] Other 02-21-2023 14:30-0500 Body weight 136.08 kg Jaycee Teran Other [employer] Other 02-21-2023 14:30-0500 Diastolic blood pressure 86 mm[Hg] Jaycee Teran Other [employer] Other 02-21-2023 14:30-0500 Respiratory rate 18 /min Jaycee Teran Other [employer] Other 02-21-2023 14:30-0500 SaO2% (BldA) [Mass fraction] 96 % Jaycee Teran Other [employer] Other 02-21-2023 14:30-0500 Systolic blood pressure 134 mm[Hg] Jaycee Jeffry Other [employer] Other 07-27-2021 17:30-0400 Body height 165.1 cm Mariaelena Peres Other [employer] Other 07-27-2021 17:30-0400 Body mass index (BMI) [Ratio] 53.24 kg/m2 Mariaelena Peres Other [employer] Other 07-27-2021 17:30-0400 Body temperature 98.4 [degF] Mariaelena Peres Other [employer] Other 07-27-2021 17:30-0400 Body weight 145.15 kg Mariaelena Peres Other [employer] Other 07-27-2021 17:30-0400 Respiratory rate 18 /min Mariaelena Peres Other [employer] Other 07-27-2021 17:30-0400 SaO2% (BldA) [Mass fraction] 98 % Mariaelena Peres Other [employer] Other 06-18-2021 10:20-0400 Body height 165.1 cm Jaycee Teran Other [employer] Other 06-18-2021 10:20-0400 Body mass index (BMI) [Ratio] 53.24 kg/m2 Jaycee Teran Other [employer] Other 06-18-2021 10:20-0400 Body temperature 98.1 [degF] Jaycee Teran Other [employer] Other 06-18-2021 10:20-0400 Body weight 145.15 kg Jaycee Teran Other [employer] Other 06-18-2021 10:20-0400 Respiratory rate 18 /min Jaycee Teran Other [employer] Other 06-18-2021 10:20-0400 SaO2% (BldA) [Mass fraction] 97 % Jaycee Teran Other [employer] Other 04-20-2021 18:25-0500 Body height 165.1 cm Jaycee Teran Other [employer] Other 04-20-2021 18:25-0500 Body mass index (BMI) [Ratio] 53.91 kg/m2 Jaycee Teran Other [employer] Other 04-20-2021 18:25-0500 Body temperature 97.8 [degF] Jaycee Teran Other [employer] Other 04-20-2021 18:25-0500 Body weight 146.97 kg Jaycee Teran Other [employer] Other 04-20-2021 18:25-0500 Diastolic blood pressure 75 mm[Hg] Jaycee Teran Other [employer] Other 04-20-2021 18:25-0500 Respiratory rate 18 /min Jaycee Teran Other [employer] Other 04-20-2021 18:25-0500 SaO2% (BldA) [Mass fraction] 99 % Jaycee Teran Other [employer] Other 04-20-2021 18:25-0500 Systolic blood pressure 128 mm[Hg] Jaycee Teran Other [employer] Other Encounters Encounter Date Encounter Type Care Provider Facility Start: 02-03-2024 End: 02-03-2024 Refill Cary Huizar [employer] HELPER Work Phone: [facility] Comment on above: Severe episode of re current major depressive disorder, without psychotic features (HCC) ([facility]) Start: 01-22-2024 End: 01-22-2024 Bamboo flowsheet Cary Huizar SCIENTIFIC HELPER Work Phone: [facility] Start: 01-22-2024 End: 01-22-2024 Bamboo flowsheet Cary Huizar SCIENTIFIC HELPER Work Phone: [facility] Start: 01-22-2024 End: 01-22-2024 Office outpatient visit 15 minutes Cary Huizar SCIENTIFIC HELPER Work Phone: [facility] Comment on above: Prediabetes (Primary Dx); Degenerative disc disease at L5-S1 level; Severe episode of recurrent major depressive disorder, without psychotic features (HCC) ([facility]) Start: 01-22-2024 End: 01-22-2024 ambulatory CARY HUIZAR Not Available Start: 12-26-2023 End: 12-26-2023 Orders Only Talia Storey [facility] Comment on above: At increased risk fo r malignant neoplasm of breast (Primary Dx) Start: 12-25-2023 End: 12-25-2023 Orders Only Cary Huizar SCIENTIFIC HELPER Work Phone: [facility] Comment on above: Prediabetes (Primary Dx) Start: 12-24-2023 End: 12-24-2023 Refill Cary Huizar SCIENTIFIC HELPER Work Phone: [facility] Comment on above: Gastroesophageal ref lux disease without esophagitis Start: 12-21-2023 End: 12-21-2023 ambulatory CHARITY GUSTAFSON [facility] Start: 12-18-2023 End: 12-18-2023 ambulatory CARY HUIZAR [facility] Start: 12-17-2023 End: 12-17-2023 Bamboo flowsheet Cary Huizar SCIENTIFIC HELPER Work Phone: [facility] Start: 12-17-2023 End: 12-17-2023 Bamboo flowsheet Cary Joepatrick SCIENTIFIC HELPER Work Phone: [facility] Start: 12-17-2023 End: 12-17-2023 Office outpatient visit 15 minutes Cary Faganzpatrick SCIENT[employer] HELPER Work Phone: [facility] Comment on [...] (CMS/HCC) Start: 12-17-2023 End: 12-17-2023 ambulatory CARY BHUPENDRA Not Available Start: 11-26-2023 End: 11-26-2023 Patient encounter procedure [facility] Embroider[employer] Worker [facility] Start: 11-26-2023 End: 11-26-2023 Periodic preventive med est patient 40-64yrs [facility] Embroidery Worker [facility] [place] Comment on above: Well woman exam with routine gynecological exam (Primary Dx); Encounter for screening mammogram for breast cancer; Standardized adult depression screening tool completed; Menorrhagia with regular cycle; Encounter for initial prescription of injectable contraceptive Start: 11-26-2023 End: 11-26-2023 ambulatory [facility] Start: 11-26-2023 Encounter for gynecological examination (general) (routine) without abnormal findings [facility] Start: 06-17-2023 End: 06-17-2023 ambulatory [facility] Not Available Start: 06-14-2023 End: 06-14-2023 ambulatory [facility] Start: 06-14-2023 Encounter for genera l adult medical examination without abnormal findings [facility] Start: 04-08-2023 End: 04-08-[address] [place] [address] Start: 02-21-2023 End: 02-21-2023 ambulatory Jaycee Teran Other [employer] Other Start: 02-21-2023 Office outpatient vi sit 25 minutes Jaycee Teran [facility] Start: 02-04-2023 End: 02-04-2023 ambulatory SHAIKH AMIRAH Not Available Start: 02-04-2023 Patient encounter status Tatiana Huizar SCIENTIFIC HELPER Work Phone: [facility] Start: 11-07-2021 End: 11-08-2021 ambulatory SHAIKH Rashawn FARNSWORTH Facility:[facility] Start: 07-27-2021 End: 07-27-2021 ambulatory Mariaelena Peres Other [employer] Other Start: 07-27-2021 Office outpatient vi sit 15 minutes Mariaelenaguicho Peres [facility] Start: 06-18-2021 End: 06-18-2021 ambulatory Jaycee Teran Other [employer] Other Start: 06-18-2021 Office outpatient vi sit 15 minutes Jaycee Teran [facility] [facility] Start: 04-28-2021 End: 04-29-[address] BRANDIN VUONG Facility:H1 Start: 04-20-2021 End: 04-20-2021 ambulatory Jaycee Teran Other [employer] Other Start: 04-20-2021 Office outpatient vi sit 15 minutes Jaycee Teran [facility] Start: 04-14-2021 End: 04-15-[address] BRANDIN VUONG Facility:H1 Procedures Date Procedure Procedure Detail Performing Clinician Start: 12-23-2023 Mammography Cary prado SCIENTIFIC HELPER Work Phone: Start: 12-21-2023 Mammography Talia Car roll BIOLOGY TEACHER Start: 11-26-2023 Urine test visual color cmprsn meths Charity Gustafson CREW LEADER GLUING-SEAL DELIVERY VEHICLE TEAM TECHNICIAN Work Phone: Start: 11-26-2023 Adult depression screening assessment [facility] Embroidery Worker Start: 08-27-2022 Microscopic observat ion [Identifier] in Cervix by Cyto stain [facility] Embroidery Worker Start: 08-18-2022 Microscopic observat ion [Identifier] in Cervix by Cyto stain Cary Huizar NP Work Phone: Plan of Treatment Date Care Activity Detail Author Start: 08-28-2027 Screening for malign ant neoplasm of cervix [facility] Start: 08-27-2025 Screening for malign ant neoplasm of cervix Pap Smear [facility] Start: 08-18-2025 Screening for malign ant neoplasm of cervix Pap Smear [facility] Start: 12-22-2024 Screening for malign ant neoplasm of breast Mammogram [facility] Start: 12-20-2024 Adult BMI Screening Adult BMI Screen ing [facility] Start: 12-20-2024 Screening for malign ant neoplasm of breast Mammogram [facility] Start: 11-25-2024 Adult BMI Follow Up Plan Adult BMI Follow Up Plan [facility] Start: 11-25-2024 Adult BMI Screening Adult BMI Screen ing [facility] Start: 11-25-2024 Depression Screening Depression Scre ening [facility] Start: 11-25-2024 Tobacco Screening Tobacco Screening [facility] Start: 04-23-2024 End: 04-23-2024 Patient encounter procedure 04/23/2024 4:00 PM EST Office Visit [facility] [address] [place] [address] Cary Huizar, SCIENTIFIC HELPER [address] [place] [address] [facility] Start: 03-23-2024 End: 01-21-2025 Hemoglobin A1c/Hemoglobin.total in Blood Hemoglobin A1c Lab Routine Prediabetes Expected: 03/23/2024 (Approximate), Expires: 01/21/2025 [facility] Work Phone: Comment on above: Expected: 03/23/2024 (Approximate), Expires: 01/21/2025 Start: 02-25-2024 End: 02-25-2024 ambulatory 02/25/2024 8:15 AM EST Nurse Injection [facility] [place] [address] [place] [address] [facility] Start: 01-22-2024 End: 01-22-2024 Patient encounter procedure [facility] Comment on above: Arrived Start: 12-26-2023 End: 12-25-2024 MR Breast - bilateral WO and W contrast IV MR bilateral breast with and without contrast with CAD Imaging Routine At increased risk for malignant neoplasm of breast Expected: 12/26/2023, Expires: 12/25/2024 [facility] Work Phone: Comment on above: Expected: 12/26/2023 , Expires: 12/25/2024 Start: 12-21-2023 End: 12-21-2023 Patient encounter procedure 12/21/2023 9:30 AM EDT Appointment [facility] - Mammography[facility]DEXA Imaging [address] [place] [address] [facility] - Mammography[facility]DEXA Imaging Start: 12-17-2023 End: 12-16-2024 [...] Visit [facility] [address] [place] [address] Cary Huizar NP [address] [place] [address] Arrived [facility] Comment on above: Arrived Start: 11-26-2023 End: 11-25-2024 DBT Breast - bilateral screening Mammography screening bilateral with CAD Imaging Routine Encounter for screening mammogram for breast cancer Expected: 11/26/2023, Expires: 11/25/2024 [facility] Work Phone: Comment on above: Expected: 11/26/2023 , Expires: 11/25/2024 Start: 10-20-2023 Influenza vaccination [facility] Start: 2023 Screening for malign ant neoplasm of breast Mammogram [facility] Start: 09-17-2002 DTaP,Tdap and Td Vaccines (1 - Tdap) DTaP,Tdap and Td Vaccines (1 - Tdap) [facility] Immunizations Immunization Date Immunization Notes Care Provider Fa cility 11-19-2023 influenza, seasonal, injectable Cary Huizar NP Work Phone: [facility] 12-13-2022 influenza virus vaccine, unspecified formulation [facility] Embroidery Worker [facility] Payers Date Payer Category Payer Private Health Insurance [id number] 2023 Unknown [id number] 2023 Unknown [id number] 2023 Unknown [id number] 2022 Medicaid [id number] 2022 Unknown [id number] 2.1 [id number] 1983 Unknown [id number] 2.16.84 0.1.032777.3.579.2.593 1983 Unknown [id number] 2.16.84 0.1.217870.3.579.2.593 1983 Unknown [id number] 2.16.84 0.1.177005.3.579.2.593 1983 Unknown [id number] 2.16.84 0.1.926396.3.579.2.593 1983 Unknown [id number] 2.16.8 40.1.784507.3.579.2.1286 1983 Unknown [id number] 2.16.8 40.1.006438.3.579.2.1286 1983 Unknown [id number] 2.16.8 40.1.136315.3.579.2.1286 1983 Unknown [id number] 2.16.8 40.1.185533.3.579.2.1286 1983 Unknown [id number] 2.16.8 40.1.954978.3.579.2.1286 1983 Unknown [id number] 2.16.8 40.1.710148.3.579.2.1286 1983 Unknown [id number] 2.16.84 0.1.073434.3.579.2.1259 1983 Unknown [id number] 2.16.84 0.1.449087.3.579.2.1259 1983 Unknown [id number] 2.16.84 0.1.824262.3.579.2.1259 1983 Unknown [id number] 2.16.840 .1.579845.3.579.2.1259 1959 Private Health Insurance [id number] 1959 Private Health Insurance [id number] 1959 Unknown [id number] 2.1 [id number] Social History Date Type Detail Facility Unknown if ever smoked [employer] Other Start: 01-15-2023 End: 11-26-2023 Sex Assigned At [facility] Start: 08-27-2022 End: 06-17-2023 Tobacco smoking status NHIS Never smoked tobacco [facility] Start: 08-27-2022 End: 06-17-2023 Tobacco use and exposure Smokeless tobacco non-user [facility] Start: 11-26-2023 End: 12-21-2023 Alcoholic beverage intake Ex-drinker (finding) [facility] Start: 01-15-2023 End: 11-26-2023 History of Social function [facility] Adolescent depressio n screening assessment 12 [facility] Start: 08-27-2022 Alcohol Comment social [facility] Start: 1985 Sex assigned at Female P [facility] Start: 08-16-2022 Gender identity Identifies as female gender (finding) [facility] Start: 08-16-2022 Sexual orientation Heterosexua l (finding) [facility] Start: 06-17-2023 End: 12-17-2023 Alcoholic beverage intake Lifetime non-drinker (finding) [facility] Within the last year , have you been afraid of your partner or ex-partner? No [facility] Do you belong to any clubs or organizations such as roman catholic groups, unions, fraternal or athletic groups, or [...] Only a little [facility] (I/We) worried wheth er (my/our) food would run out before (I/we) got money to buy more. Sometimes true [facility] Start: 1985 Sex assigned at Not on file [facility] Start: 01-23-2022 Sex Female (finding) [facility] NEGATED: Highlighted rowStart: MAYURI History of tobacco use Passive smoker [facility] Clinical Notes 04-14-2021 to 01-22-2024 Cary Huizar NP - 01/22/2024 8:48 AM Yessy Huizar NP - 01/22/2024 8:39 AM Yessy Huizar NP - 01/22/2024 8:30 AM Yessy Huizar NP - 12/17/2023 10:27 AM EDT Note Date & Type Note Facility 01-22-2024 History of Present illness Narrative Associated Problem(s): MDD (major depressive disorder) ([facility]) Currently taking 150mg Wellbutrin. Feels symptoms are well controlled. Is having current increased life stressors at this time, but is attending therapy for coping mechanisms. Would like to continue at current medication dose at this time. Denies SI/HI. Is doing Baptist based therapy weekly. Associated Problem(s): Degenerative disc disease at L5-S1 level Following with PM. Is having MRI done Is currently taking Meloxicam and baclofen PRN. Reports back pain is tolerable at this time. Images from the original note were not included. Subjective Patient ID: Juan Ramon Monk is a 38 y.o. female who presents for Follow-up. HPI Prediabtetes: Was started on Metformin 500mg XR 1 month ago. Is tolerating without any adverse effects or complaints. Continue current regimen. Recheck A1C in 03/2024 DDD: Following with PM. Is having MRI done Is currently taking Meloxicam and baclofen Review of Systems Constitutional: Negative for activity [...] flank pain, frequency, hematuria and urgency. Musculoskeletal: Negative for arthralgias, gait problem, joint swelling and myalgias. Skin: Negative for rash. Neurological: Negative for dizziness, tremors, syncope, weakness, light-headedness and headaches. Psychiatric/Behavioral: Negative for decreased concentration and suicidal ideas. The patient is not nervous/anxious. Hematological: Does not bruise/bleed easily. Endocrine: Negative for cold intolerance, heat intolerance, polydipsia, polyphagia and polyuria. Objective Physical Exam Vitals reviewed. Constitutional: Appearance: Normal appearance. HENT: Head: Normocephalic and atraumatic. Right Ear: [...] Assessment/Plan Problem List Items Addressed This Visit MDD (major depressive disorder) (CMS/HCC) Currently taking 150mg Wellbutrin. Feels symptoms are well controlled. Is having current increased life stressors at this time, but is attending therapy for coping mechanisms. Would like to continue at current medication dose at this time. Denies SI/HI. Is doing Baptist based therapy weekly. Degenerative disc disease at L5-S1 level Following with PM. Is having MRI done Is currently taking Meloxicam and baclofen PRN. Reports back pain is tolerable at this time. Other Visit Diagnoses Prediabetes - Primary Relevant Orders Hemoglobin A1c documented in this encounter [facility] 12-17-2023 History of Present illness Narrative Associated [...] Associated Problem(s): Mild intermittent asthma without complication (CMS/HCC) PFT's done in 2021- WNL. Reports using rescue inhaler 1-2 times per [...] Orders Hemoglobin A1c MDD (major depressive disorder) (CMS/HCC) Currently taking 150mg Wellbutrin. Feels symptoms are well controlled. Is having current increased lie stressors at this time, but is attending therapy for coping mechanisms. Would like to continue at current medication dose at this time. Denies SI/HI. Relevant Medications Semaglutide-Weight Management (Wegovy) 0.25 MG/0.5ML solution auto-injector Mild intermittent asthma without complication (CMS/HCC) PFT's done in 2021- WN. Reports using rescue inhaler 1-2 times per [...] LUMBAR SPINE AP/LAT/FLEX/EXT/OBLIQUES documented in this encounter [facility] 12-17-2023 Instructions Cary Huizar NP - 12/17/2023 10:00 AM EDT Have A1C completed. Start Wegovy injection once weekly. Call if you need anything! documented in this encounter [facility] 11-26-2023 History of Present illness Narrative Annual Well Woman Visit 11/26/2023 Braxton Monk is a pleasant 38 y.o. 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 Follow up as needed. Next pap due 2027 per ASCCP guidelines. Discussed taking a multivitamin. Discussed Calcium and Vitamin D for prevention of osteoporosis. Discussed recommendations for HPV vaccine between 9-45 yo. Can be received at [facility] or the health department. Discussed need for yearly mammogram after 40 yo. Discussed colon cancer screening recommendations to begin at 45 yo, patient to discuss with PCP. All questions answered. YUVAL Argueta APRN-CNP Lisa M Krotzer, APRN-CNP 11/26/23 1058 documented in this encounter [facility] 02-21-2023 Evaluation note Encounter Date Diagnosis [...] in office. Follow above treatment plan recommendations. [employer] Other 06-09-2022 Evaluation note* Encounter Date Diagnosis Assessment Notes Treatment Notes Treatment Clinical Notes Jul, Sore throat (ICD-10 - J02.9) Jul, Bronchitis (ICD-10 - J40) Since this has been an ongoing issue recommend follow up with PCP in 1-2 weeks to discuss asthma related treatment. Take Zyrtec or Lena to help with symptoms [employer] Other 05-01-2022 Evaluation note* Encounter Date Diagnosis [...] for fever/discomfort, cool mist humidifier. May use [place] as needed for cough, do not take any other OTCs while using [place]. Continue use of Albuterol Inhaler, refill sent. [...] Patient care instructions given in writting by [facility] Care At Home document [employer] Other 03-03-2022 Evaluation note* Encounter Date Diagnosis [...] Knee pain home care material was printed [employer] Other 02-25-2022 NotePROCEDURE: XR ANKLE RT MIN [...] Electronically authenticated by: VALENTINA OMER Date: 2021-04-14 [facility]:07[facility] Well woman exam with routine gynecological exam- Primary Routine gynecological examination Encounter for screening mammogram for breast cancer Standardized adult depression screening tool completed Menorrhagia with regular cycle Encounter for initial prescription of injectable contraceptive [facility] Diagnosis Mild intermittent asthma without [...] in adult (CMS/HCC) documented in this encounter [facility]* Diagnosis Mild intermittent asthma without [...] of 50.0 to 59.9 in adult (CMS/HCC) Gastroesophageal reflux disease without esophagitis Esophageal reflux documented in this encounter [facility]* Diagnosis Mild intermittent asthma without [...] of 50.0 to 59.9 in adult (CMS/HCC) Prediabetes- Primary Other abnormal glucose documented in this encounter [facility]* Diagnosis At increased risk for malignant neoplasm of breast- Primary [facility] Diagnosis Mild intermittent asthma without [...] of 50.0 to 59.9 in adult (CMS/HCC) Prediabetes- Primary Other abnormal glucose Degenerative disc disease at L5-S1 level Severe episode of recurrent major depressive disorder, without psychotic features (HCC) (CMS/HCC) documented [facility] Diagnosis Mild intermittent asthma without [...] of 50.0 to 59.9 in adult (CMS/HCC) Prediabetes- Primary Other abnormal glucose Degenerative disc disease at L5-S1 level Severe episode of recurrent major depressive disorder, without psychotic features (HCC) (CMS/HCC) Severe episode of recurrent major depressive disorder, without psychotic features (HCC) (CMS/HCC) documented [facility] N[facility] - Reported* Type Description Date Medical History asthma Medical History Esophageal reflux Surgical History fracture repair Surgical History rhinoplasty Surgical History deviated septum repair Hospitalization History see above Hospitalization History child [employer] Other History general Narrative - Reported* Type Description Date Medical History asthma Medical History Esophageal reflux Medical History Depression Surgical History fracture repair Surgical History rhinoplasty Surgical History deviated septum repair Hospitalization History see above Hospitalization History child [employer] Other Instructions* Attachments The following attachments cannot be sent through Care Everywhere. * Health Risks of a High BMI ([place]izen [place]) * Heavy periods ([place]) [facility] documented in [facility] Summary Purpose Family History No [...] section and content) DATE CREATED AUTHOR 05/01/2021 [facility] DATE CREATED AUTHOR AUTHOR'S ORGANIZ ATION 09/28/2021 [facility] DATE CREATED AUTHOR AUTHOR'S ORGANIZ ATION 04/12/2022 [facility] DATE CREATED AUTHOR AUTHOR'S ORGANIZ ATION 06/16/2023 [facility] DATE CREATED AUTHOR AUTHOR'S ORGANIZ ATION 11/27/2023 [facility] DATE CREATED AUTHOR AUTHOR'S ORGANIZ ATION 12/24/2023 [facility] DATE CREATED AUTHOR AUTHOR'S ORGANIZ ATION 01/24/2024 [facility] dical Specialists EPIC REASON FOR VISIT (unrecogniz ed section and content) Reason Comments Gynecologic Exam Pt is here for kirsten lomeli exam. Reason Comments Asthma de Depression Reason Comments Med Refill Reason Comments Follow-up Care Teams (unrecognized sec tion and content) Industrial Engineering Relationship Specialty Start Date End Date Shaikh Farnsworth MD PCP - General Internal Medicine 08/28/22 Industrial Engineering Relationship Specialty Start Date End Date Brandin Vuong MD [address] [place] [address] PCP - External PCP Family Medicine 12/26/22 Wallace Arora MD [address] [place] [address] PCP - General Family Medicine 10/02/23 Charity Vanessa NP [address] [place] [address] Nurse Practitioner Family Medicine 12/19/22 Cary Huizar NP [address] [place] [address] Nurse Practitioner Family Medicine 10/02/23 Industrial Engineering Relationship Specialty Start Date End Date Brandin Vuong MD [address] [place] [address] PCP - External PCP Family Medicine 12/26/22 Wallace Arora MD [address] [place] [address] PCP - General Family Medicine 10/02/23 Charity Vanessa NP [address] [place] [address] Nurse Practitioner Family Medicine 12/19/22 Cary Huizar NP [address] [place] [address] Nurse Practitioner Family Medicine 10/02/23 Industrial Engineering Relationship Specialty Start Date End Date Brandin Vuong MD [address] [place] [address] PCP - External PCP Family Medicine 12/26/22 Wallace Arora MD [address] [place] [address] PCP - General Family Medicine 10/02/23 Charity Vanessa NP [address] [place] [address] Nurse Practitioner Family Medicine 12/19/22 Cary Huizra NP [address] [address] Nurse Practitioner Family Medicine 10/02/23 Industrial Engineering Relationship Specialty Start Date End Date Brandin Vuong MD [address] [place] [address] PCP - External PCP Family Medicine 12/26/22 Wallace Arora MD [address] [place] [address] PCP - General Family Medicine 10/02/23 Charity Vanessa NP [address] [place] [address] Nurse Practitioner Family Medicine 12/19/22 Cary Huizar NP [address] [place] [address] Nurse Practitioner Family Medicine 10/02/23 Industrial Engineering Relationship Specialty Start Date End Date Shaikh Farnsworth MD PCP - General Internal Medicine 08/28/22 Industrial Engineering Relationship Specialty Start Date End Date Brandin Vuong MD [address] [place] [address] PCP - External PCP Family Medicine 12/26/22 Wallace Arora MD [address] [place] [address] PCP - General Family Medicine 10/02/23 Charity Vanessa NP [address] [place] [address] Nurse Practitioner Family Medicine 12/19/22 Cary Huizar NP [address] [place] [place] [address] Nurse Practitioner Family Medicine 10/02/23 Industrial Engineering Relationship Specialty Start Date End Date Brandin Vuong MD [address] [place] [address] PCP - External PCP Family Medicine 12/26/22 Wallace Arora MD [address] [place] [address] PCP - General Family Medicine 10/02/23 Charity Vanessa NP [address] [place] [address] Nurse Practitioner Family Medicine 12/19/22 Cary Huizar NP [address] [place] [address] Nurse Practitioner Family Medicine 10/02/23 Industrial Engineering Relationship Specialty Start Date End Date Brandin Vuong MD [address] [place] [address] PCP - External PCP Family Medicine 12/26/22 Wallace Arora MD [address] [place] [address] PCP - General Family Medicine 10/02/23 Charity Vanessa NP [address] [place] [address] Nurse Practitioner Family Medicine 12/19/22 Cary Huizar NP [address] [place] [address] Nurse Practitioner Family Medicine 10/02/23 FOR RECORDS PERTAINING TO PATIENTS WHO ARE [...] BE BASED ON THE PRIMARY CLINICAL RECORDS. [employer] provides no warranty or guarantee of the accuracy or completeness of information in this document.
--- NOTE | 2024-02-17 07:01 | MR_ITS ---
The [address] [address] Patient Name: JUAN RAMON ANTOINE MRN: [id number] date: 1985 Sex: F Assigned Patient Location: MRI Current Patient Location: Accession/Order Number: [id number] Exam Date: 02/17/2024 07:02 Report Date: 02/18/2024 12:01 At the request of: MORE CAICEDO Procedure: MR lumbar spine wo con EXAMINATION: MR lumbar spine wo con HISTORY: M51.36 M47.816 COMPARISON: No relevant comparison available. TECHNIQUE: A variety of imaging planes and parameters were utilized for visualization of suspected pathology. FINDINGS: For the purposes of numbering, sagittal T2 image # 10 extends from the T11 vertebral body superiorly to the S4 level inferiorly. PARASPINAL AREA: Normal with no visible mass. BONES: Normal alignment with no acute fracture or spondylolisthesis CORD/CAUDA EQUINA: Normal caliber, contour, and signal intensity. DISC LEVELS: 12-L1: No significant disc/facet abnormality, spinal stenosis, or foraminal stenosis. L1-L2: No significant disc/facet abnormality, spinal stenosis, or foraminal stenosis. L2-L3: No significant disc/facet abnormality, spinal stenosis, or foraminal stenosis. L3-L4: No significant disc/facet abnormality, spinal stenosis, or foraminal stenosis. L4-L5: Early degenerative disc disease is present without focal protrusion or neural impingement. L5-S1: Disc space narrowing and dessication. Mild diffuse disc bulge. No central or foraminal stenosis. MR/MR lumbar spine wo con IMPRESSION: No central or foraminal stenosis Electronically authenticated by: VALENTINA OMER Date: 02/18/2024 12:01
== END 2024-02-17 06:52 | disposition home or self-care (01) ==
LOC: MRI 06:52
PROVIDERS: Visit Provider Nurse Practitioner
DX: M51.369 Other intervertebral disc degeneration, lumbar region without mention of lumbar back pain or lower extremity pain (principal); M47.816 Spondylosis without myelopathy or radiculopathy, lumbar region
CPT/HCPCS: 72148

== ENCOUNTER 2024-11-17 18:31 | Outpatient (OUT) | payer OTHER, SELFPAY ==
--- OUTSIDE RECORDS SUMMARY | 2024-11-17 18:34 | XMS_ITS | Clinical Summary ---
Author Organization [employer] Address [id number] [address] [place] [address] Care Team Providers Care Outside Sales Inspector Name Role Phone Shaikh WILLOW Farnsworth Primary Care Provider [phone] Allergies Active Allergy Reactions Criticality Noted Date Comments Amoxicillin 08/27/2022 Medications omeprazole (PriLOSEC) 20 mg capsuleIndicat ions:gastroeso phageal reflux disease Take 1 capsule (20 mg total) by mouth in the morning. Indications: gastroesophageal reflux disease. Active montelukast (SINGULAIR) 10 mg tabletIndicati ons:maintenanc e therapy for asthma Take 1 tablet (10 mg total) by mouth nightly Indications: controller medication for asthma. Active albuterol (PROVENTIL HFA;VENTOLIN HFA) 90 mcg/actuation inhalerIndicat ions:acute asthma attack Inhale 2 puffs every 6 (six) hours as needed for wheezing Indications: asthma attack. Active buPROPion XL (WELLBUTRIN XL) 150 mg 24 hr tablet Take 1 tablet (150 mg total) by mouth every morning. Active ferrous sulfate 325 (65 FE) mg tablet Take 1 tablet (325 mg total) by mouth daily with breakfast. Active Active Problems Problem Noted Date Diagnosed Date Mammographic fibroglandular density, bilateral b reasts 12/31/2023 Overview (12/31/2023): TC Lifetime risk: 20%. The patient's reported personal and family medical history was used calculate their Tyrer-Cuzick lifetime risk of malignancy. At high risk for breast cancer 12/31/2023 Obesity, morbid, BMI 50 or higher 11/26/2023 Overview (11/26/2023): Discussed BMI at well woman visit Chronic midline low back pain without sciatica 0 06/17/2023 Overview (11/26/2023): Last Assessment & Plan: Chronic, intermittent. Patient has periods of acute back and her pain usually subsides in a few days with conservative measures. Educated on lifestyle modification, importance of good posture, losing weight and physical activity to help improve her muscle strength. Mild intermittent asthma without complication Overview (11/26/2023): Last Assessment & Plan: Normal PFTs 2021. Symptoms well controlled. Previously she used Advair. Not on anything and does not require Ventolin too. Monitor. Female stress incontinence 01/21/2023 Folic acid deficiency (non anemic) 01/21/2023 Gastroesophageal reflux disease 01/21/2023 Overview (11/26/2023): Last Assessment & Plan: Well controlled on omeprazole C/w same Iron deficiency anemia, unspecified 01/21/2023 MDD (major depressive disorder) 01/21/2023 Overview (11/26/2023): Last Assessment & Plan: Well controlled and much improved on Wellbutrin C/w same. Denies SI/HI. Metabolic syndrome 01/21/2023 Overview (11/26/2023): Last Assessment & Plan: She was previously prescribed Saxenda and was able to lose some weight but had to stop due to GI side effects. Check A1C, Lipid panel. Family history of uterine cancer 08/27/2022 Overview (08/27/2022): Mother Family hx of colon cancer 08/27/2022 Overview (08/27/2022): Mother Family history of breast cancer 08/27/2022 Overview (08/27/2022): Maternal grandmother age 56 Family History Medical History Relation Name Comments Arthritis Father Stroke Maternal Grandfather Breast cancer Maternal Grandmother Kristie 40s Colon cancer Mother Diabetes Mother Uterine cancer Mother Heart disease Paternal Grandfather Asthma Sister 2 Relation Name Status Comments Father Alive Maternal Grandfather Maternal Grandmother Kristie Mother Alive Paternal Grandfather Paternal Grandmother Sister 1 Alive Sister 2 Alive Social History Tobacco Use Types Packs/Day Years Used Date Smoking Tobacco: Never Smokeless Tobacco: Never Tobacco Cessation:Counseling Given: Not Answered Alcohol Use Standard Drinks/Week Comments Not Currently 0 (1 standard drink = 0.6 oz pur e alcohol) social PHQ-2 Answer Date Recorded Total Score 12 11/26/2023 Hunger Screening Answer Date Recorded Within the past 12 months we worried whether our food would run out before we got money to buy more. Never True 11/26/2023 Within the past 12 months th e food we bought just didn't last and we didn't have money to get more. Never True 11/26/2023 Comments Unknown Sex and Gender Information Value Date Recorded Sex Assigned at Female 08/16/2022 3:55 PM EDT Legal Sex Female 8:45 PM EST Gender Identity Female 08/16/2022 3:55 PM EDT Sexual Orientation Straight 08/16/2022 3: 55 PM EDT Last Filed Vital Signs Vital Sign Reading Time Taken Comments Blood Pressure 110/80 11/26/2023 8:30 AM EDT Pulse - - Temperature - - Respiratory Rate - - Oxygen Saturation - - Inhaled Oxygen Concentration - - Weight 142.4 kg (314 lb) 12/21/2023 9:18 AM EDT Height 165.1 cm (5' 5 ) 12/21/2023 9:18 AM EDT Body Mass Index 52.25 12/21/2023 9:18 AM EDT Plan of Treatment Health Maintenance Due Date Last Done Comments DTaP,Tdap and Td Vaccines (1 - Tdap) 09/17/2002 Influenza Vaccine 10/19/2024 11/20/2023, 12/13/2022 Adult BMI Follow Up Plan 11/25/2024 11/26/2023 Depression Screening 11/25/2024 11/26/2023 Tobacco Screening 11/25/2024 11/26/2023 Adult BMI Screening 12/20/2024 12/21/2023 Mammogram 12/20/2024 12/21/2023 Pap Smear 08/27/2025 08/27/2022, 08/18, 08/27/2022 Medical Devices Not on file Procedures Procedure Name Priority Date/Time Associated Diagnosis Comments MAMM SCREENING BILATERAL W CAD Routine 12/21/2023 9:36 AM EDT Encounter for screening mammogram for breast cancer HIGH RISK HPV W/PANTERA Routine 08/27/2022 6:12 AM EDT Screening for cervical cancer from Last 3 Months or Most Recently Relevant to Health Maintenance Results * Mammography screening bilateral with CAD (12/21/2023 9:36 AM EDT) Anatomical Region Laterality Modality Breast Bilateral Mammography 12/23/2023 2:23 PM EST Narrative 12/23/2023 2:46 PM EST JUAN RAMON MONK 1985 [id number] EXAM: MAMM SCREENING BILATERAL W CAD, 12/21/2023 [...] patient should continue with the above recommendation. Finalized by Giovana Benavidez MD on 12/23/2023 2:46 PM 1 b BREAST MRI FDA Accredited Performing Facility: [facility] - Mammography/DEXA Imaging [address] [facility] [id number] Procedure Note Giovana Benavidez MD - 12/23/2023 JUAN RAMON MONK 1985 [id number] EXAM: MAMM SCREENING BILATERAL W CAD, 12/21/2023 9:15 AM CLINICAL INDICATIONS: Screening, Encounter for screening mammogram forbreast cancer COMPARISON: No prior studies currently available for comparison. TECHNIQUE: Bilateral digital tomosynthesis MLO and CC views of the breastswere obtained, with creation of synthetic 2D views. Computer aideddetection was utilized. FINDINGS: There are scattered areas of fibroglandular density. There are no suspicious masses, calcifications, or areas of architecturaldistortion. IMPRESSION: No mammographic evidence of malignancy. BI-RADS: BI-RADS 1 - Negative RECOMMENDATION: Recommend supplemental MRI evaluation in addition toannual mammography.. Given personal elevated risk of malignancy (seebelow), MRI may be considered for supplemental screening. This isrecommended to be performed at alternating 6 month intervals withscreening mammography. RISK ASSESSMENT: TC Lifetime risk: 20%. The patient's reported personal and family medical history was usedcalculate their Tyrer-Cuzick lifetime risk of malignancy. Scores less than20% are not considered high risk per ACR guidelines and patient shouldcontinue with the above recommendation. Finalized by Giovana Benavidez MD on 12/23/2023 2:46 PM 1 b BREAST MRI FDA Accredited Performing Facility: [facility] - Mammography/DEXA Imaging [address] [facility] [id number] us Charity Zmimer PURLER-RHEUMATOLOGIST IMG MAMMOGRAPHY ORDERABL ES Final Result * High risk HPV w/pantera (08/27/2022 6:12 AM EDT) Hpv specimen type ThinPrep 08/28/2022 6:12 AM EDT [facility] Hpv 16 Negative Negative^N egative 08/29/2022 6:08 AM EDT [facility] Hpv 18 Negative Negative^N egative 08/29/2022 6:08 AM EDT [facility] Other high risk hpv Negative Negative^N egative 08/29/2022 6:08 AM EDT [facility] Comment: HPV types 31,33,35,39,45,52,56,58,59,66 and 68 DNA were undetectable. THINP 08/27/2022 6:12 AM EDT 08/28/2022 6:13 AM EDT us Charity Zimmer PURLER-RHEUMATOLOGIST LAB BLOOD ORDERABLES Fin al Result Performing Organization Address City/State/[facility] Co de Phone Number [facility] [address] [place] [address] [facility] [address] [place] [address], [address] [place] [address] from Last 3 Months or Most Recently Relevant to Health Maintenance Insurance [facility] Care Teams Outside Sales Inspector Relationship Specialty Start Date End Date Shaikh Farnsworth MD PCP - General Internal Medicine 08/28/22
--- OUTSIDE RECORDS SUMMARY | 2024-11-17 18:34 | XMS_ITS | Encounter Summary ---
Author Organization [facility] Address [address] [place] [address] Care Team Providers Care Livestock Sales Representative Name Role Phone Charity Vanessa NP Unavailable [phone] Brandin Tatum MD Unavailable Wallace Arora MD Primary Care Provider [phone] Cary Huizar NP Unavailable Encounter Details Date Type Department Care Team (Late st Contact Info) Description 12/21/2023 External Result Encounter [facility] [address] [place] [address] Cary Huizar NP Social History Tobacco Use Types Packs/Day Years Used Date Smoking Tobacco: Never Passive Smoke Exposure: Never Smokeless Tobacco: Never Alcohol Use Standard Drinks/Week Comments Never 0 (1 standard drink = 0.6 oz pur e alcohol) Humiliation, Afraid, Rape, and Kick questionnair e Answer Date Recorded Within the last year, have y ou been afraid of your partner or ex-partner? No 01/15/2023 Within the last year, have y ou been humiliated or emotionally abused in other ways by your partner or ex-partner? No Within the last year, have y ou been kicked, hit, slapped, or otherwise physically hurt by your partner or ex-partner? No 01/15/2023 Within the last year, have y ou been raped or forced to have any kind of sexual activity by your partner or ex-partner? No 01/15/2023 Social Connection and Isolat ion Panel [NHANES] Answer Date Recorded In a typical week, how many times do you talk on the phone with family, friends, or neighbors? More than three times a week 01/15/2023 How often do you get togethe r with friends or relatives? Once a week 01/15/2023 How often do you attend chur or buddhism services? More than 4 times per year 01/15/2023 Do you belong to any clubs o r organizations such as moravian groups, unions, fraternal or athletic groups, or school groups? Yes 01/15/2023 How often do you attend meet ings of the clubs or organizations you belong to? More than 4 times per year 01/15/2023 Are you , , di vorced, , never , or living with a partner? 01/15/2023 AUDIT-C Answer Date Recorded Q1: How often do you have a drink containing alc ohol? Monthly or less 01/15/2023 Q2: How many drinks containi ng alcohol do you have on a typical day when you are drinking? 1 or 2 01/15/2023 Q3: How often do you have si x or more drinks on one occasion? Never 01/15/2023 Overall Financial Resource Strain (CARDIA) Answe r Date Recorded How hard is it for you to pa y for the very basics like food, housing, medical care, and heating? Not very hard 01/15/2023 PHQ-2 Answer Date Recorded Patient Health Questionnaire-2 Score 0 06/17/2023 [facility] - Occupational Stress Questionnaire Answer Date Recorded Do you feel stress - tense, restless, nervous, or anxious, or unable to sleep at night because your mind is troubled all the time - these days? Only a little 01/15/2023 Exercise Vital Sign Answer Date Recorde d On average, how many days pe r week do you engage in moderate to strenuous exercise (like a brisk walk)? 0 days 01/15/2023 On average, how many minutes do you engage in exercise at this level? 0 min 01/15/2023 Hunger Vital Sign Answer Date Recorded Within the past 12 months, y ou worried that your food would run out before you got the money to buy more. Sometimes true Within the past 12 months, t he food you bought just didn't last and you didn't have money to get more. Sometimes true PRAPARE - Transportation Answer Date Re corded In the past 12 months, has l ack of transportation kept you from medical appointments or from getting medications? No 12/20 In the past 12 months, has l ack of transportation kept you from meetings, work, or from getting things needed for daily living? No 01/15/2023 Housing Stability Vital Sign Answer Adal e Recorded In the last 12 months, was t here a time when you were not able to pay the mortgage or rent on time? Yes 01/15/2023 In the last 12 months, how many places have you lived? 1 01/15/2023 In the last 12 months, was t here a time when you did not have a steady place to sleep or slept in a halfway (including now)? No 01/15/2023 Comments No Sex and Gender Information Value Date Recorded Sex Assigned at Not on file Legal Sex Female 6:51 PM EDT Gender Identity Not on file Sexual Orientation Not on file documented as of this encounter Plan of Treatment Not on file documented as of this encounter Procedures Procedure Name Priority Date/Time Associated Diagnosis Comments BI MAMMOGRAM SCREENING TOMOSYNTHESIS BILATERAL 12/23/2023 2:47 PM EST XR LUMBAR SPINE 4+ VIEWS WITH FLEXION EXTENSION 12/21/2023 2:52 PM EDT documented in this encounter Results * Bilateral screening mammogram with tomosynthesis (12/23/2023 2:47 PM EST) Anatomical Region Laterality Modality Breast Bilateral Mammography 12/23/2023 2:47 PM EST Narrative 12/23/2023 2:46 PM EST THIS EXAM WAS PERFORMED AT [facility] 1985 [id number] EXAM: MAMM SCREENING BILATERAL W CAD, 12/21/2023 [...] b BREAST MRI FDA Accredited Performing Facility: [facility] - Mammography/DEXA Imaging [address] [id number] The copy-to physician of this order is CARY Hameed The ordering physician of this order is CHARITY Ortega Procedure Note Radiology, Radiologist, MD - 12/23/2023 THIS EXAM WAS PERFORMED AT [facility] 1985 [id number] EXAM: MAMM SCREENING BILATERAL W CAD, 12/21/2023 [...] and family medical history was usedcalculate their Tyrer-zi lifetime risk of malignancy. Scores less than20% are not considered high risk per ACR guidelines and patient shouldcontinue with the above recommendation. Finalized by Giovana Benavidez MD on 12/23/2023 2:46 PM 1 b BREAST MRI FDA Accredited Performing Facility: [facility] - [facility]ammography[facility]A [facility] [address] [facility] [address] The copy-to physician of this order is CARY Hameed The ordering physician of this order is CHARITY Ortega Cary Huizar NP IMG BI PROCEDURES Final Result * XR lumbar spine 4+ views w flexion extension (12/21/2023 2:52 PM EDT) Anatomical Region Laterality Modality Spine, L-spine Radiographic Tenisha ging 12/21/2023 2:52 PM EDT Narrative 12/21/2023 2:51 PM EDT THIS EXAM WAS PERFORMED AT [facility] CLINICAL HISTORY: Degenerative disc disease at L5-S1 [...] range of motion in flexion and extension. Finalized by Valeri Alexandre MD on 12/21/2023 2:51 PM Procedure Note Radiology, Radiologist, - 12/21/2023 THIS EXAM WAS PERFORMED AT [facility] CLINICAL HISTORY: Degenerative disc disease at L5-S1 level COMPARISON: None. 7 views of the lumbar spine were obtained. There are 5 lumbar vertebral bodies identified. The vertebral body height and alignment, as well as the intervertebraldisc spaces are well maintained with straightening and loss of the normallordosis possibly from muscle spasm. There is mild disc space narrowing atL4-5 and L5-S1 level.. There is no evidence of spondylolysis or spondylolisthesis. No parsdefects are seen in the oblique views. Flexion and extension viewsrevealed adequate range of motion and no pathologic motion. There is no evidence of compression deformity or paraspinal opacity. IMPRESSION: Mild lower lumbar spondylosis. No spondylolysis or spondylolisthesis. Adequate range of motion in flexionand extension. Finalized by Valeri Alexandre MD on 12/21/2023 2:51 PM Cary Huizar NP IMG XR PROCEDURES Final Result documented in this encounter Visit Diagnoses Not on filedocumented in this encounter Care Teams Livestock Sales Representative Relationship Specialty Start Date End Date Brandin Tatum MD PCP - External PCP Family Medicine 12/26/22 Wallace Arora MD PCP - General Family Medicine 10/02/23 Charity Vanessa NP Nurse Practitioner Family Medicine 12/19/22 Cary Huizar NP Nurse Practitioner Family Medicine 10/02/23 documented as of this encounter
--- OUTSIDE RECORDS SUMMARY | 2024-11-17 18:34 | XMS_ITS | Encounter Summary ---
Author Organization [facility] Address [address] [place] [address] Care Team Providers Care Flat Knitter Name Role Phone Charity Vanessa STEAMTABLE WORKER Unavailable [phone] Brandin Tatum MD Unavailable [phone] Wallace Arora MD Primary Care Provider [phone] Cary Griffin NP Unavailable [phone] Encounter Details Date Type Department Care Team (Late st Contact Info) Description 02/18/2024 Clinisync Result Encounter [facility] External Department Unsolicited Provider, Generic External Data Social History Tobacco Use Types Packs/Day Years [...] 01/15/2023 How often do you attend chur ch or sikh services? More than 4 times per year 01/15/2023 Do you belong to any clubs o r organizations such as anabaptism groups, unions, fraternal or athletic groups, or [...] Recorded Patient Health Questionnaire-2 Score 0 06/17/2023 [facility] Answer Date Recorded [...] place to sleep or slept in a fdc (including now)? No 01/15/2023 Comments No Sex and Gender Information Value Date Recorded Sex Assigned at Not on file Legal Sex Female 6:51 PM EDT Gender Identity Not on file Sexual Orientation Not on file documented as of this encounter Plan of Treatment Not on file documented as of this encounter Procedures Procedure Name Priority Date/Time Associated Diagnosis Comments MR LUMBAR SPINE WO CON 02/18/2024 12:01 PM EST documented in this encounter Results * MR LUMBAR SPINE WO CON (02/18/2024 12:01 PM EST) Anatomical Region Laterality Modality Other 02/18/2024 12:0 1 PM EST Narrative 02/18/2024 12:04 [place] [address] Magnetic Resonance Report Signed Patient: JUAN RAMON MONK MR#: [id number] : 1985 Acct:[id number] Age/Sex: 38 / F ADM Date: 02/17/24 Loc: MRI Attending Dr: More Caicedo NP Ordering Physician: More Caicedo NP Date of Service: 02/17/24 Procedure(s): MR lumbar spine wo con Accession Number(s): [id number] cc: GISELA GRIFFIN Anna NP [facility] [place] [id number] Patient Name: JUAN RAMON MONK MRN: [id number] date: 1985 Sex: F Assigned Patient Location: MRI Current Patient Location: Accession/Order Number: [id number] Exam Date: 02/17/2024 07:02 Report Date: 02/18/2024 12:01 At the request of: MORE CAICEDO Procedure: MR lumbar spine wo con EXAMINATION: MR lumbar spine wo con HISTORY: M51.36 M47.816 COMPARISON: No relevant comparison available. TECHNIQUE: A variety of imaging planes and parameters were utilized for visualization of suspected pathology. FINDINGS: For the purposes of numbering, sagittal T2 image # 10 extends from the T11 vertebral body superiorly to the S4 level inferiorly. PARASPINAL AREA: Normal with no visible mass. BONES: Normal alignment with no acute fracture or spondylolisthesis CORD/CAUDA EQUINA: Normal caliber, contour, and signal intensity. DISC LEVELS: 12-L1: No significant disc/facet abnormality, spinal stenosis, or foraminal stenosis. L1-L2: No significant disc/facet abnormality, spinal stenosis, or foraminal stenosis. L2-L3: No significant disc/facet abnormality, spinal stenosis, or foraminal stenosis. L3-L4: No significant disc/facet abnormality, spinal stenosis, or foraminal stenosis. L4-L5: Early degenerative disc disease is present without focal protrusion or neural impingement. L5-S1: Disc space narrowing and dessication. Mild diffuse disc bulge. No central or foraminal stenosis. MR/MR lumbar spine wo con IMPRESSION: No central or foraminal stenosis Electronically authenticated by: VALENTINA OMER Date: 02/18/2024 12:01 Dictated By: Valentina Omer M.D. Signed By: 02/18/24 120 DD/ 120 TD/TT: Local Combination Truck Driver: Procedure Note Radiology, Radiologist, MD - 02/18/2024 [facility] [place] [id number] Magnetic Resonance Report Signed Patient: JUAN RAMON MONK AMR#: [id number] : 1985Acct:[id number] Age/Sex: 38 / FADM Date: 02/17/24 Loc: MRI Attending Dr: More Caicedo NP Ordering Physician: More Caicedo NP Date of Service: 02/17/24 Procedure(s): MR lumbar spine wo con Accession Number(s): [id number] cc: GISELA GRIFFIN Anna NP [place] [id number] Patient Name: JUAN RAMON MONK MRN: [id number] date: 1985 Sex: F Assigned Patient Location: MRI Current Patient Location: Accession/Order Number: [id number] Exam Date: 02/17/2024 07:02 Report Date: 02/18/2024 12:01 At the request of: MORE CAICEDO Procedure: MR lumbar spine wo con EXAMINATION: MR lumbar spine wo con HISTORY: M51.36 M47.816 COMPARISON: No relevant comparison available. TECHNIQUE: A variety of imaging planes and parameters were utilized for visualization of suspected pathology. FINDINGS: For the purposes of numbering, sagittal T2 image # 10 extends from the T11 vertebral body superiorly to the S4 level inferiorly. PARASPINAL AREA: Normal with no visible mass. BONES: Normal alignment with no acute fracture or spondylolisthesis CORD/CAUDA EQUINA: Normal caliber, contour, and signal intensity. DISC LEVELS: 12-L1: No significant disc/facet abnormality, spinal stenosis, orforaminal stenosis. L1-L2: No significant disc/facet abnormality, spinal stenosis, orforaminal stenosis. L2-L3: No significant disc/facet abnormality, spinal stenosis, orforaminal stenosis. L3-L4: No significant disc/facet abnormality, spinal stenosis, orforaminal stenosis. L4-L5: Early degenerative disc disease is present without focal protrusionor neural impingement. L5-S1: Disc space narrowing and dessication. Mild diffuse disc bulge. No central or foraminal stenosis. MR/MR lumbar spine wo con IMPRESSION: No central or foraminal stenosis Electronically authenticated by: VALENTINA Murphy: 02/18/2024 12:01 Dictated By: Valentina Omer M.D. Signed By:02/18/24 1204 DD/ 1201 TD/TT: Local Combination Truck Driver: us Generic External Data Provider [facility] Final Result documented in this encounter Visit Diagnoses Not on filedocumented in this encounter Care Teams Flat Knitter Relationship Specialty Start Date End Date Brandin Tatum MD PCP - External PCP Family Medicine 12/26/22 Wallace Arora MD PCP - General Family Medicine 10/02/23 Charity Vanessa NP Nurse Practitioner Family Medicine 12/19/22 Cary Griffin NP Nurse Practitioner Family Medicine 10/02/23 documented as of this encounter
--- NOTE | 2024-11-17 18:43 | US_ITS ---
The [address] [address] Patient Name: JUAN RAMON ANTOINE MRN: [id number] date: 1985 Sex: F Assigned Patient Location: Current Patient Location: Accession/Order Number: [id number] Exam Date: 11/17/2024 18:49 Report Date: 11/18/2024 09:56 At the request of: CATRACHO TOMAS Procedure: US pelvis w/ transvaginal ULTRASOUND PELVIS WITH TRANSVAGINAL COMPARISON: None CLINICAL DATA: Irregular periods and cramping. LMP 10/14/2024 Real-time ultrasound evaluation the pelvis was performed utilizing both a transabdominal and transvaginal approach. TRANSABDOMINAL: Estimated uterine size is approximately 8.6 x 3.6 x 4.8 cm. No focal myometrial abnormalities are seen. The endometrial lining is estimated at 5 mm. Both ovaries are identified. TRANSVAGINAL: Transvaginal imaging was performed to better evaluate the uterus and adnexa. By this approach, no focal myometrial abnormalities are seen. The endometrial lining is estimated at 1 cm. There is a small nabothian cyst. Both ovaries are again seen. The right measures 3.3 x 1.8 x 2.8 cm. The left ovary measures 3.1 x 2.1 x 3.2 cm. There are bilateral follicles. The largest is on the left measuring 12 mm in size. There is also a subtle hypoechoic nodular area within the right ovary measuring 11 x 13 x 13 mm. This may be a resolving corpus luteum of menstruation. There is documentation of ovarian blood flow with resistive index of 0.52 on the right and 0.51 on the left. No free fluid is seen. US/US pelvis w/ transvaginal IMPRESSION: NO SIGNIFICANT ULTRASOUND FINDINGS. Impression dictated by: Katiana Estrella M.D. 11/18/2024 9:56 AM Dictation Location: [place] [address] Electronically authenticated by: [id number] Y Date: 11/18/2024 09:56
== END 2024-11-17 18:32 | disposition home or self-care (01) ==
PROVIDERS: PCP Nurse Practitioner; Visit Provider Nurse Practitioner
DX: R42 Dizziness and giddiness (principal); R11.0 Nausea; R53.83 Other fatigue
CPT/HCPCS: 76830; 76856